=== PATIENT | male | born 1960 | race Caucasian/White ===

== ENCOUNTER 2020-01-24 13:03 | Emergency (ER) | payer MEDICAID, SELFPAY ==
[2020-01-24 14:26] VITALS: BP 140/87; PULSE 110; RESP 24; TEMP 36.6; O2SAT 92; BMI 22.7
--- NOTE | 2020-01-24 14:45 | ECG_ITS ---
Test Reason : DYSPNEA Blood Pressure : / mmHG Vent. Rate : 090 BPM Atrial Rate : 090 BPM P-R Int : 140 ms QRS Dur : 082 ms QT Int : 352 ms P-R-T Axes : 072 -58 053 degrees QTc Int : 430 ms Normal sinus rhythm Left anterior fascicular block Abnormal ECG When compared with ECG of 07-NOV-2019 18:51, Premature ventricular complexes are no longer Present Criteria for Septal infarct are no longer Present Referred By: Clementina Ambriz Electronically Signed By:ADA GRANT MD
--- NOTE | 2020-01-24 14:46 | ED_ITS ---
HPI - SOB/Dyspnea General Chief Complaint: Dyspnea Stated Complaint: COVID SYMPTOMS Time Seen by Provider: 01/24/20 14:37 Source: patient and director business intelligence Mode of arrival: ambulatory Limitations: no limitations and language barrier History of Present Illness HPI Narrative: 59-year-old male with a past medical history of asthma, COPD, alcohol abuse here with shortness of breath and cough for the last 4-5 days. Th e patient is also complaining of some body aches and chills. No fever or chest pain. MD elicited complaint: shortness of breath Pertinent past history: asthma Onset (ago): day(s) Timing: intermittent Severity: moderate Exacerbating factors: exertion Relieving factors: rest Known history of: COPD Associated symptoms: denies other symptoms Treatment prior to arrival: none Related Data Previous Rx's Medication Instructions Recorded albuterol sulfate 2 inh INHALATION Q4-6H PRN #1 ea 01/24/20 levofloxacin 750 mg PO DAILY 4 Days #4 tab 01/24/20 prednisone 40 mg PO DAILY #8 tab 01/24/20 Allergies Allergy/AdvReac Type Severity Reaction Status Date / Time crab Allergy Severe SWELLING/RA Unverified 11/11/19 15:59 Review of Systems Review of Systems: Yes all other systems are reviewed and are negative Constitutional: Constitutional: Reports no additional constitutional complaints, Denies body ache(s), Denies chills, Denies fever(s), Denies headache(s) and Denies weakness Eyes: Eyes: Reports no additional eye complaints and Denies change in vision ENT: Reports system reviewed and no additional complaints, except as documented, Denies dizziness, Denies headache(s), Denies nasal congestion, Denies nasal discharge and Denies neck pain Cardiovascular: Cardiovascular: Reports no additional cardiovascular complaints, Denies chest pain, Denies leg edema and Reports dyspnea Respiratory: Respiratory: Reports no additional respiratory complaints, Reports cough and Reports dyspnea Gastrointestinal: Gastrointestinal: Reports no additional gastrointestinal complaints, Denies abdominal pain, Denies diarrhea, Denies nausea and Denies vomiting Genitourinary: Genitourinary: Denies urinary incontinence Musculoskeletal: Musculoskeletal: Reports no additional musculoskeletal complaints, Denies back pain, Denies arthralgias, Denies joint swelling, Denies neck pain, Denies numbness and Denies tingling Integumentary/Breasts: Skin/Breast: Reports system reviewed and no additional complaints, except as docu and Denies rash Neurologic: Reports system reviewed and no additional complaints, except as documented, Denies Abnormal speech present, Denies dizziness, Denies headache(s), Denies numbness, Denies tingling and Denies weakness PMFSH Past Medical History Source: old records reviewed and nursing notes reviewed Medical History (Updated 01/24/20 @ 17:01 by Clementina Ambriz NP) Alcohol abuse Asthma Social History Social History Alcohol intake: current Alcohol type: hard liquor Smoked in Last 30 Days: No Use of substances other than those prescribed or required for medical reasons: Yes Substance Use Type: Crack/Cocaine Advance Directives: No Advance Directives Information Provided: No Physical Exam Vital Signs: Vital Signs: Last Vital Signs Temp 98 F 01/24/20 14:26 Pulse 103 H 01/24/20 15:43 Resp 22 H 01/24/20 15:43 BP 147/66 H 01/24/20 15:43 Pulse Ox 94 01/24/20 15:43 Body Mass Index 22.7 Const: General: cooperative, healthy appearing, comfortable and no acute distress Orientation/consciousness: patient oriented x3 Limitations: no limitations HENMT: Head: Yes normal to inspection Ears: hearing grossly normal bilaterally General nose exam: Normal external nose present Face and sinus: Yes normal facial exam Mouth: Normal oral and palatal mucosa present Throat: Yes posterior oropharynx normal Eyes: General: appearance normal, both eyes and all related structures Pupils: Equal, round and reactive pupils present Neck: Neck: Yes normal visual inspection Chest: Chest palpation & inspection: normal inspection of the chest Resp: Other: Inspiratory and expiratory wheezing throughout, speaking short sentences. Cardio: Rate: regular rate Rhythm: regular rhythm Peripheral pulses: Peripheral pulses 2+ throughout GI: Inspection: Yes normal to inspection Palpation (GI): Soft to palpation and nontender Auscultation: normal bowel sounds Back/Spine/Pelvis: Thoracic/Lumbar Spine: thoracic and lumbar spine normal to inspection Skin: General skin exam: no rashes or lesions noted Neuro: General: patient oriented x3, no focal motor deficits and normal sensation to monofilament Cranial nerves: Yes Equal, round and reactive pupils present Cognition (Neuro): normal cognition Speech: No Abnormal s peech present Gait exam (Neuro): Normal gait present Motor exam (neuro): 5/5 motor strength present throughout Extrem: General: Yes normal to inspection Course Course Course Narrative: 59-year-old male here with shortness of breath, cough, chills for last 4 days. On exam the patient has inspiratory and exp wheezing throughout. He has some mild tachycardia and tachypnea. He has room air saturation 92%. Will need labs, chest x-ray, EKG. Will give albuterol, Solu-Medrol and magnesium and reassess. 1630- Labs reviewed which show mild leukocytosis with no fever or elevated lactic acid. Patient does complain of productive cough from baseline. Likely asthma flare with bronchitis. At this time infection is suspected. Antibiotics ordered. Repeat nebulizer ordered. Patient did ambulate with an oxygen saturation of 92% however felt some shortness of breath. Will plan for repeat after nebulizer and antibiotics. Patient will likely be able to be discharged h ome. 1700-Sign out to Maricarmen PETROPHYSICIST pending above. MDM - SOB/Dyspnea Medical Records Attestation: I reviewed the patient's medical records. Lab Data Attestation: I reviewed the patient's lab results. Result diagrams: 01/24/20 14:57 01/24/20 14:57 Labs: Lab Results 01/24/20 01/24/20 01/24/20 Range/Units 14:57 14:57 14:57 WBC 15.2 H (4.8-10.8) X10*3/uL RBC 5.19 (4.60-5.80) X10*6/uL Hgb 16.2 (14.0-18.0) g/dl Hct 48.3 (42-52) % MCV 93.1 (80-98) fL MCH 31.2 (27.0-33.0) pg MCHC 33.5 (31.0-36.0) g/dl RDW 12.5 (11.0-16.0) % Plt Count 250 (160-400) X10*3/uL MPV 9.9 (9.4-12.4) fL Immature Gran % (Auto) 0.3 (0.0-0.4) % Neut % (Auto) 85.4 H (45-73) % Lymph % (Auto) 4.9 L (20-40) % [place] % (Auto) 9.0 (2-11) % Eos % (Auto) 0.1 (0-4) % Baso % (Auto) 0.3 (0-2) % Lymph # (Auto) 0.7 L (1.2-4.9) X10*3/uL [place] # (Auto) 1.4 H (0.1-1.2) X10*3/uL Eos # (Auto) 0.0 (0.0-0.4) X10*3/uL Baso # (Auto) 0.0 (0.0-0.2) X10*3/uL Abs Immat Gran (auto) 0.05 H (0.00-0.03) X10*3/uL Absolute Neuts (auto) 12.9 H (2.0-8.3) X10*3/uL Absolute Nucleated RBC 0.000 (0.0-0.012) X10*3/uL Nucleated RBC % (auto) 0.0 (0.0-0.2) /100WBC Sodium 134 L (135-145) mmol/L Potassium 4.3 (3.3-5.1) mmol/l Chloride 96 (96-108) mmol/L Carbon Dioxide 24 (22-29) mmol/L Anion Gap 18 (12-20) BUN 19 H (9-16) mg/dL Creatinine 1.12 (0.5-1.4) mg/dL Estim Creat Clear Calc 65.2 Estimated GFR > 60 Random Glucose 100 (60-115) mg/dL Lactic Acid (0.5-2.0) mmol/L Calcium 8.9 (8.4-10.2) mg/dL Magnesium 2.4 (1.6-2.6) mg/dL Total Bilirubin 1.2 H (0.0-1.0) mg/dL Direct Bilirubin 0.6 H (0.0-0.5) mg/dL AST 27 (5-37) U/L ALT 26 (0-40) U/L Alkaline Phosphatase 80 (39-117) U/L Total Protein 7.8 (6.5-8.0) g/dL Albumin 4.0 (3.5-5.0) g/dL Coronavirus (PCR) NEGATIVE (Negative) Influenza Type A (PCR) NEGATIVE (Negative) Influenza Type B (PCR) NEGATIVE (Negative) RSV RNA Qual (PCR) NEGATIVE (Negative) 01/24/20 Range/Units 14:57 WBC (4.8-10.8) X10*3/uL RBC (4.60-5.80) X10*6/uL Hgb (14.0-18.0) g/dl Hct (42-52) % MCV (80-98) fL MCH (27.0-33.0) pg MCHC (31.0-36.0) g/dl RDW (11.0-16.0) % Plt Count (160-400) X10*3/uL MPV (9.4-12.4) fL Immature Gran % (Auto) (0.0-0.4) % Neut % (Auto) (45-73) % Lymph % (Auto) (20-40) % [place] % (Auto) (2-11) % Eos % (Auto) (0-4) % Baso % (Auto) (0-2) % Lymph # (Auto) (1.2-4.9) X10*3/uL [place] # (Auto) (0.1-1.2) X10*3/uL Eos # (Auto) (0.0-0.4) X10*3/uL Baso # (Auto) (0.0-0.2) X10*3/uL Abs Immat Gran (auto) (0.00-0.03) X10*3/uL Absolute Neuts (auto) (2.0-8.3) X10*3/uL Absolute Nucleated RBC (0.0-0.012) X10*3/uL Nucleated RBC % (auto) (0.0-0.2) /100WBC Sodium (135-145) mmol/L Potassium (3.3-5.1) mmol/l Chloride (96-108) mmol/L Carbon Dioxide (22-29) mmol/L Anion Gap (12-20) BUN (9-16) mg/dL Creatinine (0.5-1.4) mg/dL Estim Creat Clear Calc Estimated GFR Random Glucose (60-115) mg/dL Lactic Acid 1.4 (0.5-2.0) mmol/L Calcium (8.4-10.2) mg/dL Magnesium (1.6-2.6) mg/dL Total Bilirubin (0.0-1.0) mg/dL Direct Bilirubin (0.0-0.5) mg/dL AST (5-37) U/L ALT (0-40) U/L Alkaline Phosphatase (39-117) U/L Total Protein (6.5-8.0) g/dL Albumin (3.5-5.0) g/dL Coronavirus (PCR) (Negative) Influenza Type A (PCR) (Negative) Influenza Type B (PCR) (Negative) RSV RNA Qual (PCR) (Negative) Imaging Data Chest x-ray: Attestation: I personally reviewed and interpreted this imaging study as follows: Radiologist's impression: EXAMINATION: XR CHEST CLINICAL INFORMATION: SOB. COMPARISON: None TECHNIQUE: Frontal view of the chest was obtained. FINDINGS: No significant abnormality is noted involving the heart, lungs, mediastinum, bony thorax or soft tissues. XR/XR chest 1V IMPRESSION: Unremarkable chest exam. Discharge Plan Discharge Clinical Impression: Bronchitis Asthma with exacerbation Qualifiers: Asthma severity: mild Asthma persistence: intermittent Qualified Code(s): J45.21 - Mild intermittent asthma with (acute) exacerbation Patient Disposition: Home, Self-Care Instructions: Asthma (ED), Acute Bronchitis (ED) Additional Instructions: Start your prednisone and antibiotics tomorrow Drink plenty of fluids, rest Prescriptions: New prednisone 20 mg tablet 40 mg PO DAILY Qty: 8 RF: 0 albuterol sulfate 90 mcg/actuation aerosol powdr breath activated 2 inh inhalation Q4-6H PRN (Reason: shortness of breath or wheezing) Qty: 1 RF: 0 levofloxacin 750 mg tablet 750 mg PO DAILY 4 Days Qty: 4 RF: 0 Referrals: Physician,None [Primary Care Provider] - 2 days
--- NOTE | 2020-01-24 14:55 | XR_ITS ---
EXAMINATION: XR CHEST CLINICAL INFORMATION: SOB and cough. COMPARISON: Chest 11/10/2019 TECHNIQUE: Frontal view of the chest was obtained. FINDINGS: The lungs are well-inflated with increased interstitial markings but no focal consolidation or mass. No pleural effusion. Heart size and pulmonary vascularity is normal. No gross bony abnormality. XR/XR chest 1V IMPRESSION: Bilateral increased interstitial markings similar to previous exam. There is no consolidation.
[2020-01-24] MEDS: Albuterol Sulfate 90 MCG 8 GM INHALER 4 PUFF INHALE (14:58)
[2020-01-24 15:08] LABS: Basophils Percent Auto 0.3 % (0-2); Eosinophils Percent Auto 0.1 % (0-4); Hematocrit 48.3 % (42-52); Hemoglobin 16.2 g/dl (14.0-18.0); Imm Gran Abs Auto 0.05 X10*3/uL (0.00-0.03); Imm Gran Pct Auto 0.3 % (0.0-0.4); Lymphocytes Absolute Auto 0.7 X10*3/uL (1.2-4.9); Lymphocytes Percent Auto 4.9 % (20-40); MANUAL DIFF FLAG NO; Mean Corpuscular HGB Conc 33.5 g/dl (31.0-36.0); Mean Corpuscular Hemoglobin 31.2 pg (27.0-33.0); Mean Corpuscular Volume 93.1 fL (80-98); Mean Platelet Volume 9.9 fL (9.4-12.4); Monocytes Absolute Auto 1.4 X10*3/uL (0.1-1.2); Neutrophils Absolute Auto 12.9 X10*3/uL (2.0-8.3); Neutrophils Percent Auto 85.4 % (45-73); Platelet Count 250 X10*3/uL (160-400); Red Blood Count 5.19 X10*6/uL (4.60-5.80); Red Cell Distribution Width 12.5 % (11.0-16.0); White Blood Count 15.2 X10*3/uL (4.8-10.8)
[2020-01-24] MEDS: methylPREDNISolone Sod Succ/PF 125 MG/2 ML VIAL IVPUSH (15:10)
[2020-01-24] MEDS: Magnesium Sulfate/H2O 2 GM/50 ML PIGGYBACK IV (15:11)
[2020-01-24 15:14] VITALS: O2SAT 95
[2020-01-24 15:17] VITALS: PULSE 92; O2SAT 95
[2020-01-24 15:27] LABS: Lactic Acid 1.4 mmol/L (0.5-2.0)
[2020-01-24 15:33] LABS: Alanine Aminotransferase 26 U/L (0-40); Alkaline Phosphatase 80 U/L (39-117); Anion Gap 18 (12-20); Aspartate Amino Transferase 27 U/L (5-37); Bilirubin Direct 0.6 mg/dL (0.0-0.5); Bilirubin Total 1.2 mg/dL (0.0-1.0); Blood Urea Nitrogen 19 mg/dL (9-16); Calcium 8.9 mg/dL (8.4-10.2); Carbon Dioxide 24 mmol/L (22-29); Chloride 96 mmol/L (96-108); Creatinine Clr Calc Pharmacy 65.2; Estimated Glomerular Filt Rate > 60; Glucose Random 100 mg/dL (60-115); Magnesium 2.4 mg/dL (1.6-2.6); Potassium 4.3 mmol/l (3.3-5.1); Sodium 134 mmol/L (135-145); Total Protein 7.8 g/dL (6.5-8.0)
--- NOTE | 2020-01-24 15:42 | PC.NURSE ---
report taken from narciso perry. pt currently in nad at this time. on 2 l nc stating 94%. pt speaking in clear and full sentences. mag iv complete. pending labs.
[2020-01-24 15:43] VITALS: BP 147/66; PULSE 103; RESP 22; O2SAT 94
[2020-01-24 15:51] LABS: Influenza A PCR NEGATIVE (Negative); Influenza B PCR NEGATIVE (Negative); Resp Syncy Virus RNA Qual PCR NEGATIVE (Negative); SARS COV2 PCR INHOUSE NEGATIVE (Negative)
--- NOTE | 2020-01-24 16:11 | PC.NURSE ---
plan for patient per lovely substation manager to ween patient from 2 l nc see how patient does. then to do a walking o2 saturation on patient.
--- NOTE | 2020-01-24 16:21 | PC.NURSE ---
pt ambulated around ed. 90% on RA. lovely tile machine operator aware at bedside with staff coroner/medical examiner.
[2020-01-24] MEDS: Albuterol/Iprat 2.5/0.5MG 3 ML AMPUL.NEB INHALE (16:44)
[2020-01-24] MEDS: levoFLOXacin/D5W 500 MG/100 ML PIGGYBACK 100 MG IV (16:44)
--- NOTE | 2020-01-24 16:45 | PC.NURSE ---
antibiotic stared and breathing treatment initiated. pt remains in nad. 93% on breathing treatment
== END 2020-01-24 18:25 | disposition home or self-care (01) ==
PROVIDERS: Nurse Practitioner Family; Emergency Provider Internal Medicine
DX: J44.1 Chronic obstructive pulmonary disease with (acute) exacerbation (principal); J20.9 Acute bronchitis, unspecified; J44.0 Chronic obstructive pulmonary disease with (acute) lower respiratory infection; J45.20 Mild intermittent asthma, uncomplicated; F14.90 Cocaine use, unspecified, uncomplicated; Z20.828 Contact with and (suspected) exposure to other viral communicable diseases; Z79.899 Other long term (current) drug therapy
CPT/HCPCS: 0241U; 11104; 36415; 71045; 80048; 80076; 83605; 83735; 85025; 87040; 93005; 94640; 96365; 96366; 96367; 96375; 99284; J1956; J2930; J3475

== ENCOUNTER 2020-02-14 10:51 | Emergency (ER) | payer MEDICAID, SELFPAY ==
[2020-02-14 11:46] VITALS: BP 141/81; PULSE 100; RESP 24; TEMP 37; O2SAT 95; BMI 25.0
[2020-02-14 11:52] VITALS: O2SAT 95
--- NOTE | 2020-02-14 11:56 | XR_ITS ---
EXAMINATION: XR CHEST CLINICAL INFORMATION: Cough, fever, shortness of breath COMPARISON: Chest radiographs 01/24/2020, 11/10/2019 TECHNIQUE: Portable upright AP view of the chest was obtained. FINDINGS: There is hyperinflation/COPD similar to prior studies. Subtle accentuated subpleural lines lateral right upper zone and right lateral base are stable from prior exam. There is no interval airspace consolidation or definite groundglass opacity. The vascularity is normal. There is no vascular congestion or effusion. The heart is normal in size. The hilar and mediastinal contours and bony structures are unremarkable. XR/XR chest 1V IMPRESSION: No acute intrathoracic disease.
--- NOTE | 2020-02-14 12:06 | ECG_ITS ---
Test Reason : SOB Blood Pressure : / mmHG Vent. Rate : 080 BPM Atrial Rate : 080 BPM P-R Int : 176 ms QRS Dur : 072 ms QT Int : 362 ms P-R-T Axes : 078 -53 031 degrees QTc Int : 417 ms Normal sinus rhythm Right atrial enlargement Left axis deviation Abnormal ECG When compared with ECG of 24-JAN-2020 16:02, ST more depressed Inferior leads Referred By: Cyndi Youssef Electronically Signed By:ADA GRANT MD
--- NOTE | 2020-02-14 12:10 | ED_ITS ---
HPI - URI/Sore Throat General Chief Complaint: Upper Respiratory Symptoms Stated Complaint: covid symptoms Time Seen by Provider: 02/14/20 11:54 Source: patient Mode of arrival: ambulatory Limitations: no limitations History of Present Illness HPI Narrative: 59 y/o male with history of COPD, asthma, ETOH abuse presenting with 2 days of SOB, wheezing, fever and productive cough with yellow phlegm. He states he has been using his inhaler without improvement. He denies sick contacts. He reports some chest discomfort as well, worse when he is coughing. MD elicited complaint: fever and cough Pertinent past history: COPD and asthma Onset (ago): day(s) (2) Consistency: constant Severity: moderate Description of mucous: yellow Able to tolerate fluids by mouth: Yes Exacerbating factors: exertion and supine positioning Associated symptoms: fever, cough and chest pain Treatments prior to arrival: none Related Data Previous Rx's Medication Instructions Recorded albuterol sulfate 2 inh INHALATION Q4-6H PRN #1 ea 01/24/20 levofloxacin 750 mg PO DAILY 4 Days #4 tab 01/24/20 prednisone 40 mg PO DAILY #8 tab 01/24/20 azithromycin [Zithromax Z-Roderick] See Rx Instructions .ROUTE 02/14/20 .COMPLEX #6 tab doxycycline hyclate 100 mg PO DAILY #10 tab 02/14/20 prednisone 40 mg PO DAILY #10 tab 02/14/20 Allergies Allergy/AdvReac Type Severity Reaction Status Date / Time crab Allergy Severe SWELLING/RA Unverified 11/11/19 15:59 Review of Systems Review of Systems: Constitutional: + Fever, +Chills ENT/Mouth: No sore throat, No Rhinorrhea, No Swallowing Difficulty Eyes: No Eye Pain, No Swelling, No Redness Cardiovascular: + Chest Pain, + SOB, + Orthopnea, No Edema Respiratory: +Cough, + Sputum, + Wheezing, + dyspnea Gastrointestinal: No Nausea, No Vomiting, No Diarrhea, No abdominal Pain, No Hematochezia, No Melena Genitourinary: No Dysuria, No Urinary Frequency, No Hematuria Musculoskeletal: No joint pain, No Myalgias Skin: No Skin Lesions, No rash Neuro: + Weakness, No Numbness, No Dizziness, No Headache Psych: No Anxiety/Panic, No Depression Heme/Lymph: No Bruising, No Lymphadenopathy Endocrine: No Polyuria, No Polydipsia PMFSH Past Medical History Medical History Alcohol abuse Asthma Social History Social History Alcohol intake: never Smoking Status: Light tobacco smoker Use of substances other than those prescribed or required for medical reasons: No Substance Use Type: Crack/Cocaine Advance Directives: No Advance Directives Information Provided: No Physical Exam Vital Signs: Vital Signs: Last Vital Signs Temp 98.6 F 02/14/20 11:46 Pulse 74 02/14/20 13:41 Resp 24 H 02/14/20 11:46 BP 141/81 H 02/14/20 11:46 Pulse Ox 95 02/14/20 11:52 Body Mass Index 25.0 Appearance: Alert. Oriented X3. Mild resp distress, audible wheezing. Eyes: Pupils equal, round and reactive to light. ENT: Pharynx normal. Neck: Normal inspection. Neck supple. CVS: Normal heart rate and rhythm. Pulses normal. Respiratory: Mild respiratory distress with RR low 20s, diffuse wheezing and rhonchi throughout Abdomen: Soft and nontender. +BS x4 Skin: Skin warm and dry. Normal skin color. Normal skin turgor. No rashes. Extremities: No lower extremity edema. Neuro: Oriented X 3. No motor deficit. No sensory deficit. Course Course Course Narrative: 59 y/o male with hx COPD/asthma, etoh abuse presenting with f ever, SOB, cough and wheezing. No improvement with home inhalers. Lung sounds coarse with wheezing. Mild resp distress with RR low 20s, no accessory muscle use. Plan to check resp panel, cultures, CXR. Will give steroids and abx now to cover CAP vs bronchitis. Reevaluation(s) Reevaluation #1: COVID, flu, RSV negative. CXR without infiltrate. Will give nebulizer treatment now that COVID is negative. SpO2 remains 95% on RA. Reevaluation #2: Aeration and wheezing improved after neb. Patient feels significantly improved. His vitals are improved. He is stable for discharge with treatment for bronchitis. Will refer to Pulmonology. MDM - URI/Sore Throat Lab Data Result diagrams: 02/14/20 12:27 02/14/20 12:27 Labs: Lab Results 02/14/20 02/14/20 02/14/20 Range/Units 12:27 12:27 12:27 WBC 5.6 (4.8-10.8) X10*3/uL RBC 4.90 (4.60-5.80) X10*6/uL Hgb 15.1 (14.0-18.0) g/dl Hct 45.7 (42-52) % MCV 93.3 (80-98) fL MCH 30.8 (27.0-33.0) pg MCHC 33.0 (31.0-36.0) g/dl RDW 13.5 (11.0-16.0) % Plt Count 210 (160-400) X10*3/uL MPV 9.6 (9.4-12.4) fL Immature Gran % (Auto) 0.2 (0.0-0.4) % Neut % (Auto) 58.5 (45-73) % Lymph % (Auto) 22.7 (20-40) % [place] % (Auto) 11.9 H (2-11) % Eos % (Auto) 6.5 H (0-4) % Baso % (Auto) 0.2 (0-2) % Lymph # (Auto) 1.3 (1.2-4.9) X10*3/uL [place] # (Auto) 0.7 (0.1-1.2) X10*3/uL Eos # (Auto) 0.4 (0.0-0.4) X10*3/uL Baso # (Auto) 0.0 (0.0-0.2) X10*3/uL Abs Immat Gran (auto) 0.01 (0.00-0.03) X10*3/uL Absolute Neuts (auto) 3.3 (2.0-8.3) X10*3/uL Absolute Nucleated RBC 0.000 (0.0-0.012) X10*3/uL Nucleated RBC % (auto) 0.0 (0.0-0.2) /100WBC Hold Blue Top SEE NOTE Sodium (135-145) mmol/L Potassium (3.3-5.1) mmol/l Chloride (96-108) mmol/L Carbon Dioxide (22-29) mmol/L Anion Gap (12-20) BUN (9-16) mg/dL Creatinine (0.5-1.4) mg/dL Estim Creat Clear Calc Estimated GFR Random Glucose (60-115) mg/dL Lactic Acid (0.5-2.0) mmol/L Calcium (8.4-10.2) mg/dL Magnesium (1.6-2.6) mg/dL Troponin I High Sens (<3.5-35.0) ng/L B-Natriuretic Peptide (<100) pg/mL Procalcitonin ng/mL Coronavirus (PCR) NEGATIVE (Negative) Influenza Type A (PCR) NEGATIVE (Negative) Influenza Type B (PCR) NEGATIVE (Negative) RSV RNA Qual (PCR) NEGATIVE (Negative) 02/14/20 02/14/20 02/14/20 Range/Units 12:27 12:27 12:27 WBC (4.8-10.8) X10*3/uL RBC (4.60-5.80) X10*6/uL Hgb (14.0-18.0) g/dl Hct (42-52) % MCV (80-98) fL MCH (27.0-33.0) pg MCHC (31.0-36.0) g/dl RDW (11.0-16.0) % Plt Count (160-400) X10*3/uL MPV (9.4-12.4) fL Immature Gran % (Auto) (0.0-0.4) % Neut % (Auto) (45-73) % Lymph % (Auto) (20-40) % [place] % (Auto) (2-11) % Eos % (Auto) (0-4) % Baso % (Auto) (0-2) % Lymph # (Auto) (1.2-4.9) X10*3/uL [place] # (Auto) (0.1-1.2) X10*3/uL Eos # (Auto) (0.0-0.4) X10*3/uL Baso # (Auto) (0.0-0.2) X10*3/uL Abs Immat Gran (auto) (0.00-0.03) X10*3/uL Absolute Neuts (auto) (2.0-8.3) X10*3/uL Absolute Nucleated RBC (0.0-0.012) X10*3/uL Nucleated RBC % (auto) (0.0-0.2) /100WBC Hold Blue Top Sodium 140 (135-145) mmol/L Potassium 4.0 (3.3-5.1) mmol/l Chloride 102 (96-108) mmol/L Carbon Dioxide 29 (22-29) mmol/L Anion Gap 13 (12-20) BUN 11 (9-16) mg/dL Creatinine 1.13 (0.5-1.4) mg/dL Estim Creat Clear Calc 60.4 Estimated GFR > 60 Random Glucose 86 (60-115) mg/dL Lactic Acid 0.9 (0.5-2.0) mmol/L Calcium 8.7 (8.4-10.2) mg/dL Magnesium 2.2 (1.6-2.6) mg/dL Troponin I High Sens < 3.5 (<3.5-35.0) ng/L B-Natriuretic Peptide (<100) pg/mL Procalcitonin ng/mL Coronavirus (PCR) (Negative) Influenza Type A (PCR) (Negative) Influenza Type B (PCR) (Negative) RSV RNA Qual (PCR) (Negative) 02/14/20 02/14/20 Range/Units 12:27 12:27 WBC (4.8-10.8) X10*3/uL RBC (4.60-5.80) X10*6/uL Hgb (14.0-18.0) g/dl Hct (42-52) % MCV (80-98) fL MCH (27.0-33.0) pg MCHC (31.0-36.0) g/dl RDW (11.0-16.0) % Plt Count (160-400) X10*3/uL MPV (9.4-12.4) fL Immature Gran % (Auto) (0.0-0.4) % Neut % (Auto) (45-73) % Lymph % (Auto) (20-40) % [place] % (Auto) (2-11) % Eos % (Auto) (0-4) % Baso % (Auto) (0-2) % Lymph # (Auto) (1.2-4.9) X10*3/uL [place] # (Auto) (0.1-1.2) X10*3/uL Eos # (Auto) (0.0-0.4) X10*3/uL Baso # (Auto) (0.0-0.2) X10*3/uL Abs Immat Gran (auto) (0.00-0.03) X10*3/uL Absolute Neuts (auto) (2.0-8.3) X10*3/uL Absolute Nucleated RBC (0.0-0.012) X10*3/uL Nucleated RBC % (auto) (0.0-0.2) /100WBC Hold Blue Top Sodium (135-145) mmol/L Potassium (3.3-5.1) mmol/l Chloride (96-108) mmol/L Carbon Dioxide (22-29) mmol/L Anion Gap (12-20) BUN (9-16) mg/dL Creatinine (0.5-1.4) mg/dL Estim Creat Clear Calc Estimated GFR Random Glucose (60-115) mg/dL Lactic Acid (0.5-2.0) mmol/L Calcium (8.4-10.2) mg/dL Magnesium (1.6-2.6) mg/dL Troponin I High Sens (<3.5-35.0) ng/L B-Natriuretic Peptide 22 (<100) pg/mL Procalcitonin 0.05 ng/mL Coronavirus (PCR) (Negative) Influenza Type A (PCR) (Negative) Influenza Type B (PCR) (Negative) RSV RNA Qual (PCR) (Negative) ECG Data Attestation: I personally reviewed and interpreted this ECG as follows: ECG interpretation date: 02/14/20 ECG interpretation time: 12:35 Interpretation: Normal sinus rhythm, HR 80, normal GA interval, normal QTc Discharge Plan Discharge Clinical Impression: Bronchitis Patient Disposition: Home, Self-Care Instructions: Acute Bronchitis (ED) Additional Instructions: You were tested for COVID-19, Influenza and RSV today. All were negative. Your chest x-ray did not show any evidence of pneumonia. You are being treated for bronchitis. Take the medications as prescribed. If you develop difficulty breathing, worsening shortness of breath or chest pain come back to the ER for further evaluation. Prescriptions: New azithromycin [Zithromax Z-Roderick] 250 mg tablet See Rx Instructions .ROUTE .COMPLEX Qty: 6 RF: 0 prednisone 20 mg tablet 40 mg PO DAILY Qty: 10 RF: 0 doxycycline hyclate 100 mg tablet 100 mg PO DAILY Qty: 10 RF: 0 No Action prednisone 20 mg tablet 40 mg PO DAILY Qty: 8 RF: 0 albuterol sulfate 90 mcg/actuation aerosol powdr breath activated 2 inh inhalation Q4-6H PRN (Reason: shortness of breath or wheezing) Qty: 1 RF: 0 levofloxacin 750 mg tablet 750 mg PO DAILY 4 Days Qty: 4 RF: 0 Referrals: Erick Aviles MD [Physician] - 2 days
[2020-02-14 12:34] LABS: MANUAL DIFF FLAG NO
[2020-02-14 12:36] LABS: Basophils Percent Auto 0.2 % (0-2); Eosinophils Absolute Auto 0.4 X10*3/uL (0.0-0.4); Eosinophils Percent Auto 6.5 % (0-4); Hematocrit 45.7 % (42-52); Hemoglobin 15.1 g/dl (14.0-18.0); Imm Gran Abs Auto 0.01 X10*3/uL (0.00-0.03); Imm Gran Pct Auto 0.2 % (0.0-0.4); Lymphocytes Absolute Auto 1.3 X10*3/uL (1.2-4.9); Lymphocytes Percent Auto 22.7 % (20-40); Mean Corpuscular Hemoglobin 30.8 pg (27.0-33.0); Mean Corpuscular Volume 93.3 fL (80-98); Mean Platelet Volume 9.6 fL (9.4-12.4); Monocytes Absolute Auto 0.7 X10*3/uL (0.1-1.2); Monocytes Percent Auto 11.9 % (2-11); Neutrophils Absolute Auto 3.3 X10*3/uL (2.0-8.3); Neutrophils Percent Auto 58.5 % (45-73); Platelet Count 210 X10*3/uL (160-400); Red Cell Distribution Width 13.5 % (11.0-16.0); White Blood Count 5.6 X10*3/uL (4.8-10.8)
[2020-02-14] MEDS: cefTRIAXone sodium 1 GM in 0.9 % Sodium Chloride 50 ML IV (12:49)
[2020-02-14] MEDS: methylPREDNISolone Sod Succ/PF 125 MG/2 ML VIAL 80 MG IVPUSH (12:49)
[2020-02-14] MEDS: 0.9 % Sodium Chloride 1,000 ML 999 ML IVCONT (12:50)
[2020-02-14 13:00] LABS: Lactic Acid 0.9 mmol/L (0.5-2.0)
[2020-02-14 13:02] LABS: Anion Gap 13 (12-20); Blood Urea Nitrogen 11 mg/dL (9-16); Calcium 8.7 mg/dL (8.4-10.2); Carbon Dioxide 29 mmol/L (22-29); Chloride 102 mmol/L (96-108); Creatinine Clr Calc Pharmacy 60.4; Estimated Glomerular Filt Rate > 60; Glucose Random 86 mg/dL (60-115); Magnesium 2.2 mg/dL (1.6-2.6); Sodium 140 mmol/L (135-145)
[2020-02-14 13:10] LABS: B Type Natriuretic Peptide 22 pg/mL (<100)
[2020-02-14 13:11] LABS: Troponin-I High Sensitivity < 3.5 ng/L (<3.5-35.0)
[2020-02-14 13:20] LABS: Influenza A PCR NEGATIVE (Negative); Influenza B PCR NEGATIVE (Negative); Resp Syncy Virus RNA Qual PCR NEGATIVE (Negative); SARS COV2 PCR INHOUSE NEGATIVE (Negative)
[2020-02-14] MEDS: Albuterol/Iprat 2.5/0.5MG 3 ML AMPUL.NEB INHALE (13:36)
[2020-02-14 13:41] VITALS: PULSE 74; O2SAT 96
[2020-02-14 13:54] LABS: Procalcitonin 0.05 ng/mL
[2020-02-14 14:18] VITALS: BP 168/86; PULSE 84; RESP 18; TEMP 36.6; O2SAT 96
== END 2020-02-14 14:28 | disposition home or self-care (01) ==
PROVIDERS: Physician Assistant; Emergency Provider Emergency Medicine
DX: J20.9 Acute bronchitis, unspecified (principal); Z20.828 Contact with and (suspected) exposure to other viral communicable diseases; J44.9 Chronic obstructive pulmonary disease, unspecified; F10.10 Alcohol abuse, uncomplicated; F17.210 Nicotine dependence, cigarettes, uncomplicated; Z79.899 Other long term (current) drug therapy
CPT/HCPCS: 0241U; 36415; 71045; 80048; 83605; 83735; 83880; 84145; 84484; 85025; 87040; 93005; 94640; 96365; 96366; 96367; 96375; 99284; 99285; J0696; J2930

== ENCOUNTER 2020-08-11 10:25 | Emergency (ER) | payer MEDICAID, SELFPAY ==
--- NOTE | ~2020-08-11 | XR_ITS ---
EXAMINATION: XR CHEST CLINICAL INFORMATION: Coughing COMPARISON: Chest 02/14/2020 TECHNIQUE: Frontal view of the chest was obtained. FINDINGS: Both lungs are hyperinflated with patchy opacity in the right upper lobe likely atelectasis and/or scarring. Rest of the lungs are clear. Heart size and pulmonary vascularity is normal. No gross bony abnormality seen. XR/XR chest 1V IMPRESSION: Hyperinflated lungs with patchy opacity right upper lobe likely atelectasis or scarring.
[2020-08-11 10:30] VITALS: BP 180/103; PULSE 98; RESP 19; TEMP 36.8; O2SAT 94; BMI 23.3
[2020-08-11 10:51] VITALS: BP 149/85; PULSE 78; RESP 18; O2SAT 93
--- NOTE | 2020-08-11 11:03 | ED.ASTHMA ---
HPI - Asthma General Chief Complaint: Asthma Stated Complaint: asthma Time Seen by Provider: 08/11/20 10:49 Source: patient Mode of arrival: ambulatory Limitations: no limitations History of Present Illness HPI Narrative: Patient presents to the ED for asthma exacerbation. Patient presents to ED for coughing, shortness of breath, and wheezing. Patient states no relief with the albuterol pump. Patient states not vaccinated against the COVID virus. Patient denies any leg swelling, chest pain, recent long travel, recent surgery, recent trauma, any estrogen hormone use, or any history of blood clot. Related Data Previous Rx's Medication Instructions Recorded albuterol sulfate 2 inh INHALATION Q4-6H PRN #1 ea 01/24/20 levofloxacin 750 mg PO DAILY 4 Days #4 tab 01/24/20 prednisone 40 mg PO DAILY #8 tab 01/24/20 azithromycin [Zithromax Z-Roderick] See Rx Instructions .ROUTE 02/14/20 .COMPLEX #6 tab doxycycline hyclate 100 mg PO DAILY #10 tab 02/14/20 prednisone 40 mg PO DAILY #10 tab 02/14/20 albuterol sulfate 2 puff INHALATION QID PRN #8.5 g 08/11/20 azithromycin See Rx Instructions .ROUTE 08/11/20 .COMPLEX #6 tab benzonatate [Tessalon Perles] 100 mg PO TID PRN #15 cap 08/11/20 prednisone 40 mg PO DAILY #10 tab 08/11/20 Allergies Allergy/AdvReac Type Severity Reaction Status Date / Time crab Allergy Severe SWELLING/RA Verified 08/11/20 10:33 Review of Systems Review of Systems: Yes all other systems are reviewed and are negative Constitutional: Constitutional: Reports as per HPI and Reports no additional constitutional complaints Eyes: Eyes: Reports as per HPI and Reports no additional eye complaints ENT: Reports system reviewed and no additional complaints, except as documented and Reports as per HPI Cardiovascular: Cardiovascular: Reports as per HPI, Reports no additional cardiovascular complaints, Denies chest pain and Reports dyspnea Respiratory: Respiratory: Reports as per HPI, Reports no additional respiratory complaints, Reports cough, Reports dyspnea and Reports wheezing Gastrointestinal: Gastrointestinal: Reports as per HPI and Reports no additional gastrointestinal complaints Genitourinary: Genitourinary: Reports no additional male genitourinary complaints and Reports as per HPI Musculoskeletal: Musculoskeletal: Reports no additional musculoskeletal complaints and Reports as per HPI Neurologic: Reports system reviewed and no additional complaints, except as documented and Reports as per HPI Psychiatric: Psychiatric: Reports no additional psychiatric complaints and Reports as per HPI Allergic/Immunologic: Allergic/Immunologic: Reports wheezing [facility] Past Medical History Medical History Alcohol abuse Asthma Social History Social History Alcohol intake: never Substance Use Type: Crack/Cocaine Advance Directives: Yes Advance Directives on File: Yes Advance Directives Date on File: 01/24/20 Physical Exam Vital Signs: Vital Signs: Last Vital Signs Temp 98.3 F 08/11/20 10:30 Pulse 78 08/11/20 12:48 Resp 17 08/11/20 12:48 BP 149/85 H 08/11/20 10:51 Pulse Ox 95 08/11/20 12:48 Body Mass Index 23.3 Const: General: cooperative, healthy appearing, comfortable, no acute distress, well developed, alert and awake Orientation/consciousness: patient oriented x3 HENMT: Head: Yes normal to inspection, Yes No palpable skull fracture present, Yes normocephalic and Yes atraumatic Eyes: General: appearance normal, both eyes and all related structures Neck: Neck: Yes normal visual inspection, Yes full ROM, Yes no lymphadenopathy, Yes no meningeal signs, Yes trachea midline and Yes supple Chest: Chest palpation & inspection: normal inspection of the chest and normal palpation of entire chest wall Resp: Effort & Inspection: normal respiratory effort and able to speak in complete sentences Auscultation: wheezes (Diffuse) expiratory wheezes Cardio: Jugular venous distension: no JVD Heart sounds: S1 normal heart sound present and S2 normal heart sound present GI: Inspection: Yes normal to inspection and No abdominal wall ecchymosis Palpation (GI): Soft to palpation, not firm, nontender, no guarding and not rigid : General: No CVA tenderness Back/Spine/Pelvis: Back: no CVA tenderness, No CVA tenderness and No back tenderness Skin: General skin exam: no rashes or lesions noted and elasticity normal Neuro: General: patient oriented x3, no meningeal signs and CN's II-XI intact bilaterally Cranial nerves: Yes CN's II-XII intact bilaterally Extrem: Other: Lower extremities negative for swelling, pitting edema, or calf tenderness General: Yes normal to inspection and Yes full ROM Psych: Appearance: grossly normal, well kempt and not disheveled Course Course Course Narrative: Lungs diffuse wheezing. Will give patient asthma IV meds and albuterol/advair dual neb. Covid swab will be ordered. Reevaluation(s) Reevaluation #1: EKG negative for STEMI. EKG negative for any new changes. Patient's troponin negative. COVID swab came back negative. Wheezing improved after receiving meds. O2 saturation on room air 96% x-ray shows opacity but does not call pneumonia but will discharge patient with azithromycin. Patient has albuterol inhaler. Will be discharged with prednisone Time: 14:48 MDM - Asthma MDM Narrative Medical decision making narrative: Asthma exacerbation Lab Data Result diagrams: 08/11/20 11:03 08/11/20 13:55 Labs: Lab Results 08/11/20 08/11/20 08/11/20 Range/Units 11:03 11:03 11:03 WBC 4.6 L (4.8-10.8) X10*3/uL RBC 4.91 (4.60-5.80) X10*6/uL Hgb 15.7 (14.0-18.0) g/dl Hct 46.8 (42-52) % MCV 95.3 (80-98) fL MCH 32.0 (27.0-33.0) pg MCHC 33.5 (31.0-36.0) g/dl RDW 13.2 (11.0-16.0) % Plt Count 209 (160-400) X10*3/uL MPV 9.5 (9.4-12.4) fL Immature Gran % (Auto) 0.2 (0.0-0.4) % Neut % (Auto) 52.9 (45-73) % Lymph % (Auto) 23.9 (20-40) % [place] % (Auto) 12.7 H (2-11) % Eos % (Auto) 9.9 H (0-4) % Baso % (Auto) 0.4 (0-2) % Lymph # (Auto) 1.1 L (1.2-4.9) X10*3/uL [place] # (Auto) 0.6 (0.1-1.2) X10*3/uL Eos # (Auto) 0.5 H (0.0-0.4) X10*3/uL Baso # (Auto) 0.0 (0.0-0.2) X10*3/uL Abs Immat Gran (auto) 0.01 (0.00-0.03) X10*3/uL Absolute Neuts (auto) 2.5 (2.0-8.3) X10*3/uL Absolute Nucleated RBC 0.000 (0.0-0.012) X10*3/uL Nucleated RBC % (auto) 0.0 (0.0-0.2) /100WBC PT 11.8 (10.8-13.0) SEC INR 1.0 (0.9-1.1) APTT 35.1 (24.1-38.0) SEC Sodium (135-145) mmol/L Potassium (3.3-5.1) mmol/L Chloride (96-108) mmol/L Carbon Dioxide (22-29) mmol/L Anion Gap (12-20) BUN (9-16) mg/dL Creatinine (0.5-1.4) mg/dL Estim Creat Clear Calc Estimated GFR Random Glucose (60-115) mg/dL Calcium (8.4-10.2) mg/dL Total Bilirubin (0.0-1.0) mg/dL AST (5-37) U/L ALT (0-40) U/L Alkaline Phosphatase (39-117) U/L Troponin I High Sens 4.0 (<3.5-35.0) ng/L B-Natriuretic Peptide 31 (<100) pg/mL Total Protein (6.5-8.0) g/dL Albumin (3.5-5.0) g/dL Coronavirus (PCR) (Negative) Influenza Type A (PCR) (Negative) Influenza Type B (PCR) (Negative) RSV RNA Qual (PCR) (Negative) 08/11/20 08/11/20 Range/Units 11:03 13:55 WBC (4.8-10.8) X10*3/uL RBC (4.60-5.80) X10*6/uL Hgb (14.0-18.0) g/dl Hct (42-52) % MCV (80-98) fL MCH (27.0-33.0) pg MCHC (31.0-36.0) g/dl RDW (11.0-16.0) % Plt Count (160-400) X10*3/uL MPV (9.4-12.4) fL Immature Gran % (Auto) (0.0-0.4) % Neut % (Auto) (45-73) % Lymph % (Auto) (20-40) % [place] % (Auto) (2-11) % Eos % (Auto) (0-4) % Baso % (Auto) (0-2) % Lymph # (Auto) (1.2-4.9) X10*3/uL [place] # (Auto) (0.1-1.2) X10*3/uL Eos # (Auto) (0.0-0.4) X10*3/uL Baso # (Auto) (0.0-0.2) X10*3/uL Abs Immat Gran (auto) (0.00-0.03) X10*3/uL Absolute Neuts (auto) (2.0-8.3) X10*3/uL Absolute Nucleated RBC (0.0-0.012) X10*3/uL Nucleated RBC % (auto) (0.0-0.2) /100WBC PT (10.8-13.0) SEC INR (0.9-1.1) APTT (24.1-38.0) SEC Sodium 140 (135-145) mmol/L Potassium 4.2 (3.3-5.1) mmol/L Chloride 103 (96-108) mmol/L Carbon Dioxide 28 (22-29) mmol/L Anion Gap 13 (12-20) BUN 13 (9-16) mg/dL Creatinine 1.02 (0.5-1.4) mg/dL Estim Creat Clear Calc 66.9 Estimated GFR > 60 Random Glucose 134 H D (60-115) mg/dL Calcium 9.2 (8.4-10.2) mg/dL Total Bilirubin 0.7 (0.0-1.0) mg/dL AST 44 H D (5-37) U/L ALT 37 (0-40) U/L Alkaline Phosphatase 54 D (39-117) U/L Troponin I High Sens (<3.5-35.0) ng/L B-Natriuretic Peptide (<100) pg/mL Total Protein 7.4 (6.5-8.0) g/dL Albumin 4.3 (3.5-5.0) g/dL Coronavirus (PCR) NEGATIVE (Negative) Influenza Type A (PCR) NEGATIVE (Negative) Influenza Type B (PCR) NEGATIVE (Negative) RSV RNA Qual (PCR) NEGATIVE (Negative) ECG Data Interpretation: Normal sinus rhythm. Left anterior fascicular block is old. Ventricular rate 76. Pr interval 154. QRS 100. QTC 474. Negative STEMI Discharge Plan Discharge Clinical Impression: Asthma with acute exacerbation Patient Disposition: Home, Self-Care Instructions: Asthma (ED) Additional Instructions: Return to the ED immediately for any chest pain, shortness of breath, swelling of lower extremities, coughing up blood, fever, chills, calf pain, dizziness, passing out, or any other concerning symptoms. Please follow-up with PCP Prescriptions: New albuterol sulfate 90 mcg/actuation HFA aerosol inhaler 2 puff inhalation QID PRN (Reason: asthma) Qty: 8.5 RF: 0 prednisone 20 mg tablet 40 mg PO DAILY Qty: 10 RF: 0 azithromycin 250 mg tablet See Rx Instructions .ROUTE .COMPLEX Qty: 6 RF: 0 benzonatate [Tessalon Perles] 100 mg capsule 100 mg PO TID PRN (Reason: pain) Qty: 15 RF: 0 No Action prednisone 20 mg tablet 40 mg PO DAILY Qty: 8 RF: 0 albuterol sulfate 90 mcg/actuation aerosol powdr breath activated 2 inh inhalation Q4-6H PRN (Reason: shortness of breath or wheezing) Qty: 1 RF: 0 levofloxacin 750 mg tablet 750 mg PO DAILY 4 Days Qty: 4 RF: 0 azithromycin [Zithromax Z-Rdoerick] 250 mg tablet See Rx Instructions .ROUTE .COMPLEX Qty: 6 RF: 0 prednisone 20 mg tablet 40 mg PO DAILY Qty: 10 RF: 0 doxycycline hyclate 100 mg tablet 100 mg PO DAILY Qty: 10 RF: 0 Interventions: ED Discharge Assessment Last Done: 08/11/20 15:08 Discharge Date/Time: 08/11/20 15:08 Print Language: Luxembourgish
[2020-08-11] MEDS: methylPREDNISolone Sod Succ 125 MG/2 ML VIAL IVPUSH (11:06)
[2020-08-11 11:08] LABS: MANUAL DIFF FLAG NO
[2020-08-11 11:09] LABS: Basophils Percent Auto 0.4 % (0-2); Eosinophils Absolute Auto 0.5 X10*3/uL (0.0-0.4); Eosinophils Percent Auto 9.9 % (0-4); Hematocrit 46.8 % (42-52); Hemoglobin 15.7 g/dl (14.0-18.0); Imm Gran Abs Auto 0.01 X10*3/uL (0.00-0.03); Imm Gran Pct Auto 0.2 % (0.0-0.4); Lymphocytes Absolute Auto 1.1 X10*3/uL (1.2-4.9); Lymphocytes Percent Auto 23.9 % (20-40); Mean Corpuscular HGB Conc 33.5 g/dl (31.0-36.0); Mean Corpuscular Volume 95.3 fL (80-98); Mean Platelet Volume 9.5 fL (9.4-12.4); Monocytes Absolute Auto 0.6 X10*3/uL (0.1-1.2); Monocytes Percent Auto 12.7 % (2-11); Neutrophils Absolute Auto 2.5 X10*3/uL (2.0-8.3); Neutrophils Percent Auto 52.9 % (45-73); Platelet Count 209 X10*3/uL (160-400); Red Blood Count 4.91 X10*6/uL (4.60-5.80); Red Cell Distribution Width 13.2 % (11.0-16.0); White Blood Count 4.6 X10*3/uL (4.8-10.8)
[2020-08-11 11:22] LABS: Prothrombin Time 11.8 SEC (10.8-13.0)
[2020-08-11 11:24] LABS: Partial Thromboplastin Time 35.1 SEC (24.1-38.0)
[2020-08-11] MEDS: Magnesium Sulfate/H2O 2 GM/50 ML PIGGYBACK IV (11:32)
[2020-08-11 11:38] LABS: B Type Natriuretic Peptide 31 pg/mL (<100)
[2020-08-11] MEDS: Albuterol/Iprat 2.5/0.5MG 3 ML AMPUL.NEB INHALE (12:16)
[2020-08-11 12:19] VITALS: PULSE 77; O2SAT 94
[2020-08-11 12:21] LABS: Influenza A PCR NEGATIVE (Negative); Influenza B PCR NEGATIVE (Negative); Resp Syncy Virus RNA Qual PCR NEGATIVE (Negative); SARS COV2 PCR INHOUSE NEGATIVE (Negative)
[2020-08-11 12:48] VITALS: PULSE 78; RESP 17; O2SAT 95
--- NOTE | 2020-08-11 13:51 | ECG_ITS ---
Test Reason : SOB Blood Pressure : / mmHG Vent. Rate : 076 BPM Atrial Rate : 076 BPM P-R Int : 154 ms QRS Dur : 100 ms QT Int : 422 ms P-R-T Axes : 079 -59 009 degrees QTc Int : 474 ms Normal sinus rhythm Right atrial enlargement Left anterior fascicular block Anteroseptal infarct , age undetermined Abnormal ECG When compared with ECG of 14-FEB-2020 12:26, No significant changes seen Referred By: Christo Parks Electronically Signed By:KRISTOPHER MINA
[2020-08-11 14:29] LABS: Alanine Aminotransferase 37 U/L (0-40); Albumin Level 4.3 g/dL (3.5-5.0); Alkaline Phosphatase 54 U/L (39-117); Anion Gap 13 (12-20); Aspartate Amino Transferase 44 U/L (5-37); Bilirubin Total 0.7 mg/dL (0.0-1.0); Blood Urea Nitrogen 13 mg/dL (9-16); Calcium 9.2 mg/dL (8.4-10.2); Carbon Dioxide 28 mmol/L (22-29); Chloride 103 mmol/L (96-108); Creatinine Clr Calc Pharmacy 66.9; Estimated Glomerular Filt Rate > 60; Glucose Random 134 mg/dL (60-115); Potassium 4.2 mmol/L (3.3-5.1); Sodium 140 mmol/L (135-145); Total Protein 7.4 g/dL (6.5-8.0)
== END 2020-08-11 15:08 | disposition home or self-care (01) ==
PROVIDERS: Physician Assistant; Emergency Provider Emergency Medicine
DX: J45.901 Unspecified asthma with (acute) exacerbation (principal); R06.02 Shortness of breath; Z79.899 Other long term (current) drug therapy; Z20.822 Contact with and (suspected) exposure to COVID-19
CPT/HCPCS: 0241U; 36415; 71045; 80053; 83880; 84484; 85025; 85610; 85730; 93005; 94640; 96365; 96366; 96375; 99284; J2930; J3475

== ENCOUNTER 2020-08-19 03:54 | Inpatient (IN) | payer MEDICAID, SELFPAY ==
[2020-08-19] VITALS (12 sets, daily range): BP systolic 119–192; BP diastolic 62–99; PULSE 75–98; RESP 16–28; TEMP 36.4–36.6; O2SAT 90–99; BMI 21.7
--- NOTE | ~2020-08-19 | XR_ITS ---
EXAMINATION: XR CHEST CLINICAL INFORMATION: Shortness of breath. COMPARISON: 08/11/2020 TECHNIQUE: Frontal view of the chest was obtained. FINDINGS: Right hand overlies the superior half of the right hemithorax, limiting assessment of this region. Lungs are hyperexpanded. No focal airspace consolidation is identified. No pneumothorax or pleural effusion. Sensitivity for abnormalities in the right upper lung region is limited. Cardiac and mediastinal contours are normal. Mild degenerative spondylosis in the thoracic spine. XR/XR chest 1V IMPRESSION: Hyperexpanded lungs. No acute findings, though assessment of the right upper lobe is limited by the overlying right hand.
[2020-08-19] MEDS: Magnesium Sulfate/H2O 2 GM/50 ML PIGGYBACK IV (04:09)
[2020-08-19] MEDS: Albuterol Sulfate (0.083%) 2.5 MG/3 ML VIAL.NEB 10 MG INHALE ×2 (04:30→05:39)
[2020-08-19 05:11] LABS: MANUAL DIFF FLAG NO
--- NOTE | 2020-08-19 05:11 | ED.ASTHMA ---
HPI - Asthma General Chief Complaint: Asthma Stated Complaint: asthma Time Seen by Provider: 08/19/20 03:56 Source: patient Mode of arrival: ambulatory Limitations: no limitations History of Present Illness HPI Narrative: Patient comes emergency room complaining of an asthma exacerbation. It has been going on for about 2 days. Patient use his medications at home with no relief. EMS gave the patient 125 mg of albuterol and a DuoNeb treatment Related Data Allergies Allergy/AdvReac Type Severity Reaction Status Date / Time No Known Allergies Allergy Verified 08/19/20 03:56 Review of Systems Review of Systems: Constitutional : No Weight loss, No Fever, No Chills, No Night Sweats, No Fatigue, No Malaise ENT/Mouth : No Hearing loss, No Ear Pain, No Nasal Congestion, No Sinus Pain, No Hoarseness, No sore throat, No Rhinorrhea, No Swallowing Difficulty Eyes: No Eye Pain, No Swelling, No Redness, No Foreign Body, No Discharge, No Vision Changes Cardiovascular : No Chest Pain, no orthopnea, no edema Respiratory : No Cough, No Sputum, complaining of wheezing and dyspnea, No Smoke Exposure, Gastrointestinal : No Nausea, No Vomiting, No Diarrhea, No Constipation, No abdominal Pain, No Hematochezia, No Melena Genitourinary : no irregular bleeding, No Dysuria, No Urinary Frequency, No Hematuria, No Urinary Incontinence, No Urgency, No Flank Pain, No Urinary Flow Changes, No Hesitancy Musculoskeletal : No joint pain, No Myalgias, No Joint Swelling Skin : No Skin Lesions, No rash Neuro : No Weakness, No Numbness, No Paresthesias, No Loss of Consciousness, No Dizziness, No Headache Psych : No Anxiety/Panic, No Depression, No SI/HI/AH/VH, No Social Issues, Heme/Lymph: No Bruising, No Bleeding,No Lymphadenopathy Endocrine : No Polyuria, No Polydipsia, No Temperature Intolerance [facility] Past Medical History Medical History Asthma Social History Social History Alcohol intake: current Alcohol intake frequency: 3 or more drinks per day Alcohol type: hard liquor Smoked in Last 30 Days: No Substance Use Type: Crack/Cocaine Substance Use Frequency: Occasionally Last Used Substance: Days (ago) Any prior treatment program specific to substance use: No Advance Directives: No Advance Directives Information Provided: No Physical Exam Vital Signs: Vital Signs: Last Vital Signs Pulse 91 08/19/20 05:42 Resp 18 08/19/20 05:42 BP 119/74 08/19/20 05:42 Pulse Ox 94 08/19/20 05:42 Body Mass Index 21.7 Appearance: Alert. Oriented X3. No acute distress. Eyes: Pupils equal, round and reactive to light. ENT: Pharynx normal. Neck: Normal inspection. Neck supple. No lymph nodes noted. No crepitus CVS: Normal heart rate and rhythm. Pulses normal. Normal S1 and S2 Respiratory: [id number] respiratory distress, diffuse wheezing, decreased air movement Abdomen: Soft and nontender. No rigidity. No distention. good BS x4 Skin: Skin warm and dry. Normal skin color. Normal skin turgor. Extremities: No lower extremity edema. No lower extremity edema. No Lacerations. No Rash Neuro: Oriented X 3. No motor deficit. No sensory deficit. Moving all extermities. No slurred speech. Course Course Course Narrative: On repeat examination, patient is saturating at 96%, however he still has diffuse wheezing, and patient still feels short of breath. A 2nd breathing treatment hour long is being given now Oxygen saturation dropped to 86% on room air after the 2nd treatment of our long nebulization. I discussed the patient with Dr. Guevara, patient being admitted for asthma exacerbation MDM - Asthma MDM Narrative Medical decision making narrative: Patient continues being short of breath, oxygen saturation 86% on room air, patient on 4 L to maintain a saturation of 92%. Patient continues wheezing, patient needs to be admitted Lab Data Result diagrams: 08/19/20 05:06 08/19/20 05:06 Labs: Lab Results 08/19/20 08/19/20 08/19/20 Range/Units 05:06 05:06 05:06 WBC 10.1 (4.8-10.8) X10*3/uL RBC 4.85 (4.60-5.80) X10*6/uL Hgb 15.7 (14.0-18.0) g/dl Hct 45.5 (42-52) % MCV 93.8 (80-98) fL MCH 32.4 (27.0-33.0) pg MCHC 34.5 (31.0-36.0) g/dl RDW 13.1 (11.0-16.0) % Plt Count 214 (160-400) X10*3/uL MPV 9.5 (9.4-12.4) fL Immature Gran % (Auto) 0.5 H (0.0-0.4) % Neut % (Auto) 74.6 H (45-73) % Lymph % (Auto) 10.0 L (20-40) % [place] % (Auto) 7.7 (2-11) % Eos % (Auto) 6.9 H (0-4) % Baso % (Auto) 0.3 (0-2) % Lymph # (Auto) 1.0 L (1.2-4.9) X10*3/uL [place] # (Auto) 0.8 (0.1-1.2) X10*3/uL Eos # (Auto) 0.7 H (0.0-0.4) X10*3/uL Baso # (Auto) 0.0 (0.0-0.2) X10*3/uL Abs Immat Gran (auto) 0.05 H (0.00-0.03) X10*3/uL Absolute Neuts (auto) 7.6 (2.0-8.3) X10*3/uL Absolute Nucleated RBC 0.000 (0.0-0.012) X10*3/uL Nucleated RBC % (auto) 0.0 (0.0-0.2) /100WBC Sodium 137 (135-145) mmol/L Potassium 3.6 (3.3-5.1) mmol/L Chloride 101 (96-108) mmol/L Carbon Dioxide 28 (22-29) mmol/L Anion Gap 12 (12-20) BUN 11 (9-16) mg/dL Creatinine 1.04 (0.5-1.4) mg/dL Estim Creat Clear Calc 67.3 Estimated GFR > 60 Random Glucose 115 (60-115) mg/dL Calcium 8.6 (8.4-10.2) mg/dL Troponin I High Sens 7.3 (<3.5-35.0) ng/L B-Natriuretic Peptide 18 (<100) pg/mL Imaging Data Chest x-ray: Radiologist's impression: Right hand overlies the superior half of the right hemithorax, limiting assessment of this region. Lungs are hyperexpanded. No focal airspace consolidation is identified. No pneumothorax or pleural effusion. Sensitivity for abnormalities in the right upper lung region is limited. Cardiac and mediastinal contours are normal. Mild degenerative spondylosis in the thoracic spine. XR/XR chest 1V IMPRESSION: Hyperexpanded lungs. No acute findings, though assessment of the right upper lobe is limited by the overlying right hand. ECG Data Attestation: I personally reviewed and interpreted this ECG as follows: (Sinus rhythm, heart rate 90, no ST segment depression or elevation, no T-wave inversion, QTC 450) Critical Care Time Critical Care Time Total Critical Care Time: 60 Discharge Plan Discharge Clinical Impression: Asthma with acute exacerbation Patient Disposition: Admitted As Inpatient
[2020-08-19 05:12] LABS: Basophils Percent Auto 0.3 % (0-2); Eosinophils Absolute Auto 0.7 X10*3/uL (0.0-0.4); Eosinophils Percent Auto 6.9 % (0-4); Hematocrit 45.5 % (42-52); Hemoglobin 15.7 g/dl (14.0-18.0); Imm Gran Abs Auto 0.05 X10*3/uL (0.00-0.03); Imm Gran Pct Auto 0.5 % (0.0-0.4); Mean Corpuscular HGB Conc 34.5 g/dl (31.0-36.0); Mean Corpuscular Hemoglobin 32.4 pg (27.0-33.0); Mean Corpuscular Volume 93.8 fL (80-98); Mean Platelet Volume 9.5 fL (9.4-12.4); Monocytes Absolute Auto 0.8 X10*3/uL (0.1-1.2); Monocytes Percent Auto 7.7 % (2-11); Neutrophils Absolute Auto 7.6 X10*3/uL (2.0-8.3); Neutrophils Percent Auto 74.6 % (45-73); Platelet Count 214 X10*3/uL (160-400); Red Blood Count 4.85 X10*6/uL (4.60-5.80); Red Cell Distribution Width 13.1 % (11.0-16.0); White Blood Count 10.1 X10*3/uL (4.8-10.8)
[2020-08-19 05:33] LABS: Anion Gap 12 (12-20); Blood Urea Nitrogen 11 mg/dL (9-16); Calcium 8.6 mg/dL (8.4-10.2); Carbon Dioxide 28 mmol/L (22-29); Chloride 101 mmol/L (96-108); Creatinine Clr Calc Pharmacy 67.3; Estimated Glomerular Filt Rate > 60; Glucose Random 115 mg/dL (60-115); Potassium 3.6 mmol/L (3.3-5.1); Sodium 137 mmol/L (135-145)
--- NOTE | 2020-08-19 05:38 | ECG_ITS ---
Test Reason : SOB Blood Pressure : / mmHG Vent. Rate : 090 BPM Atrial Rate : 090 BPM P-R Int : 140 ms QRS Dur : 088 ms QT Int : 368 ms P-R-T Axes : 080 -57 040 degrees QTc Int : 450 ms Normal sinus rhythm Right atrial enlargement Pulmonary disease pattern Left anterior fascicular block Septal infarct , age undetermined Abnormal ECG No previous ECGs available Referred By: Rain Krishnamurthy Electronically Signed By:Zack Sumner
[2020-08-19 05:39] LABS: B Type Natriuretic Peptide 18 pg/mL (<100); Troponin-I High Sensitivity 7.3 ng/L (<3.5-35.0)
--- NOTE | 2020-08-19 08:29 | P.HPHOSP_ITS ---
History of Present Illness Date of Service: 08/19/20 Chief Complaint: sob 59M presented with 3 days sob, patient states prior to this he was feeling well, he has history of asthma, uses albuterol inhaler occasionally, 3 days ptp, he started having sob, cough, wheeze, denies fever, chills, chest pain. patient denies tobacco smoke, but does smoke crack, drinks hard liquor, usually daily, but has not had a drink for last 3 days. he does feel mild withdrawl symptoms. in ED found to be hypoxic in the 80s on room air, CXR hyperinflated, otherwise undermarkable. Review of Systems Review of Systems: Constitutional: Denies fever, denies Chills Eyes: denies blurry vision ENT: denies sore throat CVS: denies chest pain Respiratory: dyspnea GI: no abdominal pain : denies dysuria MSK: denies neck pain Skin: denies rash Neuro: denies specific motor weakness Psych: denies suicidal ideation Endocrine: denies heat/cold intoleratnce Hematologic: denies easy bleeding Allergy: denies hives [facility] Medical History Asthma Social History Alcohol intake: current Alcohol intake frequency: 3 or more drinks per day Alcohol type: hard liquor Smoked in Last 30 Days: No Substance Use Type: Crack/Cocaine Substance Use Frequency: Occasionally Last Used Substance: Days (ago) Any prior treatment program specific to substance use: No Advance Directives: No Advance Directives Information Provided: No Meds Allergies Allergy/AdvReac Type Severity Reaction Status Date / Time No Known Allergies Allergy Verified 08/19/20 03:56 Home Medications Medication Instructions Recorded Confirmed Last Taken Type albuterol sulfate [Ventolin HFA] 2 puff INHALATION Q4H PRN 08/19/20 08/19/20 Unk nown History Physical Exam Vital Signs and Narrative: Vital Signs: Last Vital Signs Pulse 89 08/19/20 08:06 Resp 22 H 08/19/20 08:06 BP 128/69 08/19/20 08:06 Pulse Ox 95 08/19/20 08:06 Body Mass Index 21.7 General: dyspneic on exertion HEENT: atraumatic Neck: normal to visual inspection CVS: S1, S2, RRR Resp: tight, exp wheezes Chest: non tender GI: soft, non tender, non distended : no CVA tenderness Skin: no rashes Extremities: no edema Neuro: Oriented X3, grossly intact Psych: cooperative Results Labs CBC and Chem 7: 08/19/20 05:06 08/19/20 05:06 Labs: Laboratory Results - last 24 hr 08/19/20 08/19/20 08/19/20 05:06 05:06 05:06 MCV 93.8 MCH 32.4 MCHC 34.5 RDW 13.1 Plt Count 214 MPV 9.5 Immature Gran % (Auto) 0.5 H Neut % (Auto) 74.6 H Lymph % (Auto) 10.0 L [place] % (Auto) 7.7 Eos % (Auto) 6.9 H Baso % (Auto) 0.3 Lymph # (Auto) 1.0 L [place] # (Auto) 0.8 Eos # (Auto) 0.7 H Baso # (Auto) 0.0 Abs Immat Gran (auto) 0.05 H Absolute Neuts (auto) 7.6 Absolute Nucleated RBC 0.000 Nucleated RBC % (auto) 0.0 Anion Gap 12 Estim Creat Clear Calc 67.3 Estimated GFR > 60 Random Glucose 115 Calcium 8.6 Troponin I High Sens 7.3 B-Natriuretic Peptide 18 Imaging Radiologist's Impressions: Impressions Chest X-Ray 08/19/20 04:48 IMPRESSION: Hyperexpanded lungs. No acute findings, though assessment of the right upper lobe is limited by the overlying right hand. Assessment and Plan (1) Asthma with acute exacerbation: Qualifiers: Asthma persistence: unspecified Asthma severity: unspecified severity Qualified Code(s): J45.901 - Unspecified asthma with (acute) exacerbation Status: Acute 59M presented with sob acute hypoxic respiratory failure due to asthma/copd exacerbation steroids, bronchodilators, wean o2 as tolerated alcohol dependence with withdrawl phenobarb, ciwa polysubstance abuse care team eval screen for HCV, HIV (in chart from [facility] 2019, mentions family reports of HIV positivity, labs at that time were negative and patient denied, will recheck though) Quality Stroke Does the patient have a stroke diagnosis?: No VTE Prior VTE?: No VTE Risk Level:: Medical - moderate - high VTE Device Contraindication: Treatment Not Indicated VTE Drug Contraindication: N/A - Med Ordered
[2020-08-19] MEDS: Enoxaparin Sodium 40 MG/0.4 ML SYRINGE SUBCUT (09:11)
[2020-08-19] MEDS: PHENobarbitaL sodium 130 MG/ML VIAL 202 MG IM (09:11)
--- NOTE | 2020-08-19 09:54 | MHC.CARE ---
09:30 - Met with pt upon request for a consult by Dr Clinton for polysubstance abuse. Pt is a daily consumer of alcoholic beverages, hard liquor, and occasionally uses crack cocaine. Pt is not [place]ian proficient, thus an software administrator was required. Pt is interested in being put in contact with Recovery services and requires any literature to be in [place]. Pt is being admitted to the nursing floors later today, CARE Team will ask the Recovery Team to follow up on Sunday 08/20.
[2020-08-19] MEDS: PHENobarbitaL sodium 130 MG/ML VIAL 151 MG IM ×2 (11:12→15:23)
[2020-08-19] MEDS: 0.9 % Sodium Chloride Flush 3 ML SYRINGE IVFLUSH (17:13)
[2020-08-19] MEDS: methylPREDNISolone Sod Succ 125 MG/2 ML VIAL 60 MG IVPUSH (17:13)
[2020-08-19] MEDS: PHENobarbitaL 15 MG TABLET 45 MG PO (21:51)
[2020-08-20] VITALS (8 sets, daily range): BP systolic 124–176; BP diastolic 71–100; PULSE 67–78; RESP 16–18; TEMP 36–36.5; O2SAT 94–100
[2020-08-20] MEDS: 0.9 % Sodium Chloride Flush 3 ML SYRINGE IVFLUSH ×3 (01:27→17:23)
[2020-08-20] MEDS: methylPREDNISolone Sod Succ 125 MG/2 ML VIAL 60 MG IVPUSH ×2 (05:45→17:23)
[2020-08-20 06:44] LABS: Hematocrit 47.6 % (42-52); Hemoglobin 16.1 g/dl (14.0-18.0); Mean Corpuscular HGB Conc 33.8 g/dl (31.0-36.0); Mean Corpuscular Hemoglobin 32.1 pg (27.0-33.0); Mean Platelet Volume 10.2 fL (9.4-12.4); Platelet Count 237 X10*3/uL (160-400); Red Blood Count 5.01 X10*6/uL (4.60-5.80); Red Cell Distribution Width 13.2 % (11.0-16.0); White Blood Count 11.3 X10*3/uL (4.8-10.8)
[2020-08-20 07:43] LABS: Alanine Aminotransferase 25 U/L (0-40); Alkaline Phosphatase 57 U/L (39-117); Anion Gap 13 (12-20); Aspartate Amino Transferase 31 U/L (5-37); Bilirubin Direct 0.2 mg/dL (0.0-0.5); Bilirubin Total 0.7 mg/dL (0.0-1.0); Blood Urea Nitrogen 23 mg/dL (9-16); Calcium 9.5 mg/dL (8.4-10.2); Carbon Dioxide 29 mmol/L (22-29); Chloride 100 mmol/L (96-108); Creatinine Clr Calc Pharmacy 78.7; Estimated Glomerular Filt Rate > 60; Glucose Random 105 mg/dL (60-115); Potassium 5.4 mmol/L (3.3-5.1); Sodium 137 mmol/L (135-145)
--- NOTE | 2020-08-20 09:21 | HO.PM.IMPN ---
Subjective Subjective Date of Service: 08/20/20 Interval History: sob Cardiovascular Cardiovascular: Reports no additional cardiovascular complaints Gastrointestinal Gastrointestinal: Reports no additional gastrointestinal complaints Physical Exam Vital Signs: Vital Signs: Last Vital Signs Temp 97.4 F 08/20/20 07:53 Pulse 78 08/20/20 07:53 Resp 18 08/20/20 07:53 BP 176/99 H 08/20/20 07:53 Pulse Ox 100 08/20/20 07:53 Body Mass Index 21.7 General: AO X 3, dysphneic Resp: diminished, wheezes CVS: S1,S2,RRR GI: soft, non tender, non distended Neuro: motor grossly intact Psych: appropriate affect Objective Data Current Medications Generic Name Dose Route Start Last Admin Trade Name Freq PRN Reason Stop Dose Admin Albuterol/Ipratropium 3 ml 08/19/20 08:37 Albuterol/Iprat 2.5/0.5mg 3 Ml Ampul.Neb INHALE Q4H PRN sob Enoxaparin Sodium 40 mg 08/19/20 09:15 08/19/20 09:11 Enoxaparin Sodium 40 Mg/0.4 Ml Syringe SUBCUT 40 mg Q24H EMIGDIO Administration Medication 1 each 08/19/20 09:00 No Benzodiazepines MISCELLANE DAILY [facility] Methylprednisolone Sodium Succinate 60 mg 08/19/20 18:00 08/20/20 05:45 Methylprednisolone Sod Succ 125 Mg/2 Ml Vial IVPUSH 60 mg Q12H EMIGDIO Administration Phenobarbital 45 mg 08/19/20 21:00 08/19/20 21:51 Phenobarbital 15 Mg Tablet PO 08/21/20 09:01 45 mg BID EMIGDIO Administration Protocol Phenobarbital 15 mg 08/21/20 21:00 Phenobarbital 15 Mg Tablet PO 08/23/20 09:01 BID EMIGDIO Protocol Phenobarbital 15 mg 08/24/20 09:00 Phenobarbital 15 Mg Tablet PO 08/25/20 09:01 DAILY EMIGDIO Protocol Sodium Chloride 3 ml 08/19/20 16:00 08/20/20 01:27 0.9 % Sodium Chloride Flush 3 Ml Syringe IVFLUSH 3 ml QSHIFT EMIGDIO Administration Labs CBC & Chem 7: 08/20/20 06:02 08/20/20 06:02 Labs: Laboratory Results - last 24 hr 08/20/20 08/20/20 08/20/20 06:02 06:02 06:02 WBC 11.3 H RBC 5.01 Hgb 16.1 Hct 47.6 MCV 95.0 MCH 32.1 MCHC 33.8 RDW 13.2 Plt Count 237 MPV 10.2 Absolute Nucleated RBC 0.000 Nucleated RBC % (auto) 0.0 Sodium 137 Potassium 5.4 H D Chloride 100 Carbon Dioxide 29 Anion Gap 13 BUN 23 H D Creatinine 0.89 Estim Creat Clear Calc 78.7 Estimated GFR > 60 Random Glucose 105 Calcium 9.5 D Total Bilirubin 0.7 Cancelled Direct Bilirubin 0.2 Cancelled AST 31 Cancelled ALT 25 Cancelled Alkaline Phosphatase 57 Cancelled Total Protein 7.0 Cancelled Albumin 4.0 Cancelled Quality Stroke Does the patient have a stroke diagnosis?: No VTE Prior VTE?: No VTE Risk Level:: Medical - moderate - high VTE Device Contraindication: Treatment Not Indicated VTE Drug Contraindication: N/A - Med Ordered Assessment and Plan (1) Asthma with acute exacerbation: Status: Acute Assessment and Plan: 59M presented with sob acute hypoxic respiratory failure due to asthma/copd exacerbation still wheezy, continue steroids, bronchodilators, wean o2 as tolerated alcohol dependence with withdrawl phenobarb, ciwa polysubstance abuse care team eval screen for HCV, HIV (in chart from [facility] 2019, mentions family reports of HIV positivity, labs at that time were negative and patient denied, will recheck though)
[2020-08-20] MEDS: PHENobarbitaL 15 MG TABLET 45 MG PO ×2 (09:35→20:24)
[2020-08-20] MEDS: Enoxaparin Sodium 40 MG/0.4 ML SYRINGE SUBCUT (09:36)
--- NOTE | 2020-08-20 10:50 | MHC.RECOVSUP ---
Recovery Support note: Patient is a 59 year old Faroese speaking male who presented to [facility] ED due to asthma exacerbation. This continuity writer met with patient with an [facility] educational interpreter to discuss his alcohol and cocaine use. Patient reports he is not interested in resources or supports at this time. Patient reports using crack cocaine once in a while when he has the money to do so however he does not find his use to be problematic. Patient reports his alcohol consumption is more problematic at this time. Patient reports he has made efforts to reduce his consumption in the past and has attended AA meetings in Faroese. Patient reports he did not find the AA meetings helpful and he does not think group supports in general would be helpful for him. Patient is aware of [facility] and has been there in the past. Discussed multiple pathways of recovery with patient and encouraged him to revisit [facility] as they have other supports aside from group meetings. Patient acknowledged and accepted information on [facility] in Faroese. Patient is not interested in meeting with a Diamond Cutter at this time. Encouraged patient to let his nurse know if he would like to discuss his recovery and recovery supports further. Patient acknowledged.
--- NOTE | 2020-08-20 13:12 | MHC.CM.PN ---
NURSE AIRCRAFT TECHNICIAN NOTE ELECTRONIC MEDICAL RECORD REVIEWED ALONG WITH CASE DISCUSSED WITH STAFF NURSE , MET WITH PATIENT HE IS [place] SPEAKING AND DOES SPEAK UNDERSTAND SOME CITIZEN OF [place] AND [place], HE LIVES ALONE , HE IS ACTIVE INDEPENDENT IN ADLS AND MOBILITY.HE HAS HISTORY OF ASTHMA AND REPORTS ONLY USING INHALERS AT HOME HE REPORTED LATELY DRINKING MORE ETOH SOMETIMES MORE THAN 3 DRINKS OF HARD LIQUOR VODKA AND SOME TIMES IN ADDITION BEER, HE REPORTED WHEN ASKED HE HAS NEVER FALLEN, LOSS OF CONSCIOUSNESS, OR SEIZURE SECONDARY TO ETOH USE. HE ALSO REPORTED HE USES CRACK , HE USE TO USE COCAINE IN THE PAST . PHYSICIAN ORDERED CARES TEAm consult for etoh abuse , patient was seen by worker he was open to speaking with the recovery support team worker. he was seen by the recovery support team long term care social worker (PATIENT IS NOW NOT INTERESTED IN AA MEETINGS HE DOES NOT FIND THEM HELPFUL, NOR DOES HE THINK SUPPORT GROUP ARE HELPFUL, VARIOUS PATHWAYS OF RECOVERY WERE DISCUSSED FOR RECOVERY , HE WAS GIVEN INFORMATION ON [facility] IN [place] DISCHARGED PLAN HOME WITH NO SERVICES , RECOVERY TEAM WORKER GIVEN RECOMENDATION FOR [facility] TO PATIENT HAS NO PCP ENCOURAGED HIM TO CHOSE ONE FROM THE LIST TRANSPORTATION PATIENT TO SELF ARRANGE
[2020-08-21] VITALS (8 sets, daily range): BP systolic 124–159; BP diastolic 66–89; PULSE 69–84; RESP 18–20; TEMP 35.8–36.9; O2SAT 91–94
[2020-08-21] MEDS: 0.9 % Sodium Chloride Flush 3 ML SYRINGE IVFLUSH ×3 (01:16→17:01)
[2020-08-21] MEDS: methylPREDNISolone Sod Succ 125 MG/2 ML VIAL 60 MG IVPUSH ×2 (06:51→17:01)
[2020-08-21 07:27] LABS: HIV AB/AG Nonreactive (Nonreactive); HIV Num 1 0.14 S/CO (0.00-0.99)
[2020-08-21 07:29] LABS: ~HepC Num1 17.43 S/CO (0.00-0.79); ~Hepatitis C Antibody Reactive (Nonreactive)
[2020-08-21] MEDS: Albuterol/Iprat 2.5/0.5MG 3 ML AMPUL.NEB INHALE ×2 (07:56→15:28)
[2020-08-21] MEDS: PHENobarbitaL 15 MG TABLET 45 MG PO (09:11)
[2020-08-21] MEDS: Enoxaparin Sodium 40 MG/0.4 ML SYRINGE SUBCUT (09:12)
--- NOTE | 2020-08-21 09:47 | HO.PM.IMPN ---
Subjective Subjective Date of Service: 08/21/20 Interval History: improving, sob Cardiovascular Cardiovascular: Reports no additional cardiovascular complaints Gastrointestinal Gastrointestinal: Reports no additional gastrointestinal complaints Physical Exam Vital Signs: Vital Signs: Last Vital Signs Temp 97.0 F 08/21/20 08:00 Pulse 73 08/21/20 08:00 Resp 20 08/21/20 08:00 BP 137/83 08/21/20 08:00 Pulse Ox 92 08/21/20 08:00 Body Mass Index 21.7 General: AO X 3, dysphneic Resp: diminished, wheezes CVS: S1,S2,RRR GI: soft, non tender, non distended Neuro: motor grossly intact Psych: appropriate affect Objective Data Current Medications Generic Name Dose Route Start Last Admin Trade Name Freq PRN Reason Stop Dose Admin Albuterol/Ipratropium 3 ml 08/19/20 08:37 08/21/20 07:56 Albuterol/Iprat 2.5/0.5mg 3 Ml Ampul.Neb INHALE 3 ml Q4H PRN Administration sob Enoxaparin Sodium 40 mg 08/19/20 09:15 08/21/20 09:12 Enoxaparin Sodium 40 Mg/0.4 Ml Syringe SUBCUT 40 mg Q24H EMIGDIO Administration Medication 1 each 08/19/20 09:00 No Benzodiazepines MISCELLANE DAILY EMIGDIO Methylprednisolone Sodium Succinate 60 mg 08/19/20 18:00 08/21/20 06:51 Methylprednisolone Sod Succ 125 Mg/2 Ml Vial IVPUSH 60 mg Q12H EMIGDIO Administration Phenobarbital 15 mg 08/21/20 21:00 Phenobarbital 15 Mg Tablet PO 08/23/20 09:01 BID EMIGDIO Protocol Phenobarbital 15 mg 08/24/20 09:00 Phenobarbital 15 Mg Tablet PO 08/25/20 09:01 DAILY EMIGDIO Protocol Sodium Chloride 3 ml 08/19/20 16:00 08/21/20 07:42 0.9 % Sodium Chloride Flush 3 Ml Syringe IVFLUSH 3 ml QSHIFT EMIGDIO Administration Labs CBC & Chem 7: 08/20/20 06:02 08/20/20 06:02 Labs: Laboratory Results - last 24 hr 08/21/20 08/21/20 06:28 06:28 Hepatitis C Ab (EIA) Reactive H HIV 1&2 Ab/P24 Ag 4thGn Nonreactive Quality Stroke Does the patient have a stroke diagnosis?: No VTE Prior VTE?: No VTE Risk Level:: Medical - moderate - high VTE Device Contraindication: Treatment Not Indicated VTE Drug Contraindication: N/A - Med Ordered Assessment and Plan (1) Asthma with acute exacerbation: Status: Acute Assessment and Plan: 59M presented with sob acute hypoxic respiratory failure due to asthma/copd exacerbation now off o2, still very wheezy and sob, continue steroids and bronchodilators alcohol dependence with withdrawl phenobarb, ciwa polysubstance abuse care team eval HCV positive, unclear treatment status, can follow up outpatient in chart from [facility] 2019, mentions family reports of HIV positivity, labs at that time were negative and continue to be negative today, likely HIV was confused with HCV.
[2020-08-21] MEDS: PHENobarbitaL 15 MG TABLET PO (22:15)
[2020-08-22] VITALS (8 sets, daily range): BP systolic 128–150; BP diastolic 65–97; PULSE 62–92; RESP 14–19; TEMP 36.2–37.1; O2SAT 91–96
[2020-08-22] MEDS: 0.9 % Sodium Chloride Flush 3 ML SYRINGE IVFLUSH ×4 (01:58→20:07)
[2020-08-22] MEDS: methylPREDNISolone Sod Succ 125 MG/2 ML VIAL 60 MG IVPUSH ×2 (06:17→16:56)
[2020-08-22] MEDS: PHENobarbitaL 15 MG TABLET PO ×2 (07:55→20:06)
[2020-08-22] MEDS: Enoxaparin Sodium 40 MG/0.4 ML SYRINGE SUBCUT (07:55)
--- NOTE | 2020-08-22 09:15 | HO.PM.IMPN ---
Subjective Subjective Date of Service: 08/22/20 Interval History: still sob, doesnt feel well enough to go home Cardiovascular Cardiovascular: Reports no additional cardiovascular complaints Gastrointestinal Gastrointestinal: Reports no additional gastrointestinal complaints Physical Exam Vital Signs: Vital Signs: Last Vital Signs Temp 97.5 F 08/22/20 07:45 Pulse 62 08/22/20 07:45 Resp 19 08/22/20 07:45 BP 150/85 H 08/22/20 07:45 Pulse Ox 94 08/22/20 07:45 Body Mass Index 21.7 General: AO X 3, dyspneic Resp: diminished, wheezes CVS: S1,S2,RRR GI: soft, non tender, non distended Neuro: motor grossly intact Psych: appropriate affect Objective Data Current Medications Generic Name Dose Route Start Last Admin Trade Name Freq PRN Reason Stop Dose Admin Albuterol/Ipratropium 3 ml 08/19/20 08:37 08/21/20 15:28 Albuterol/Iprat 2.5/0.5mg 3 Ml Ampul.Neb INHALE 3 ml Q4H PRN Administration sob Enoxaparin Sodium 40 mg 08/19/20 09:15 08/22/20 07:55 Enoxaparin Sodium 40 Mg/0.4 Ml Syringe SUBCUT 40 mg Q24H EMIGDIO Administration Medication 1 each 08/19/20 09:00 No Benzodiazepines MISCELLANE DAILY EMIGDIO Methylprednisolone Sodium Succinate 60 mg 08/19/20 18:00 08/22/20 06:17 Methylprednisolone Sod Succ 125 Mg/2 Ml Vial IVPUSH 60 mg Q12H EMIGDIO Administration Phenobarbital 15 mg 08/21/20 21:00 08/22/20 07:55 Phenobarbital 15 Mg Tablet PO 08/23/20 09:01 15 mg BID EMIGDIO Administration Protocol Phenobarbital 15 mg 08/24/20 09:00 Phenobarbital 15 Mg Tablet PO 08/25/20 09:01 DAILY EMIGDIO Protocol Sodium Chloride 3 ml 08/19/20 16:00 08/22/20 07:56 0.9 % Sodium Chloride Flush 3 Ml Syringe IVFLUSH 3 ml QSHIFT EMIGDIO Administration Labs CBC & Chem 7: 08/20/20 06:02 08/20/20 06:02 Quality Stroke Does the patient have a stroke diagnosis?: No VTE Prior VTE?: No VTE Risk Level:: Medical - moderate - high VTE Device Contraindication: Treatment Not Indicated VTE Drug Contraindication: N/A - Med Ordered Assessment and Plan (1) Asthma with acute exacerbation: Status: Acute Assessment and Plan: 59M presented with sob acute hypoxic respiratory failure due to asthma/copd exacerbation now off o2,continues to be very wheezy and sob, continue steroids and bronchodilators will add azithro alcohol dependence with withdrawl phenobarb, ciwa polysubstance abuse care team eval HCV positive, unclear treatment status, can follow up outpatient in chart from [facility] 2019, mentions family reports of HIV positivity, labs at that time were negative and continue to be negative today, likely HIV was confused with HCV.
[2020-08-22] MEDS: Azithromycin 500 MG TABLET PO (10:49)
[2020-08-22] MEDS: Albuterol/Iprat 2.5/0.5MG 3 ML AMPUL.NEB INHALE (16:24)
[2020-08-23 04:00] VITALS: BP 137/72; PULSE 57; RESP 16; TEMP 35.9; O2SAT 97
[2020-08-23] MEDS: methylPREDNISolone Sod Succ 125 MG/2 ML VIAL 60 MG IVPUSH (05:11)
[2020-08-23] MEDS: guaiFENesin DM 100/10/5 ML 5 ML SYRUP PO (06:07)
[2020-08-23 06:46] LABS: Hematocrit 47.8 % (42-52); Hemoglobin 15.9 g/dl (14.0-18.0); Mean Corpuscular HGB Conc 33.3 g/dl (31.0-36.0); Mean Corpuscular Hemoglobin 32.1 pg (27.0-33.0); Mean Corpuscular Volume 96.4 fL (80-98); Mean Platelet Volume 10.1 fL (9.4-12.4); Platelet Count 244 X10*3/uL (160-400); Red Blood Count 4.96 X10*6/uL (4.60-5.80); Red Cell Distribution Width 13.1 % (11.0-16.0); White Blood Count 11.5 X10*3/uL (4.8-10.8)
[2020-08-23 07:26] LABS: Anion Gap 13 (12-20); Blood Urea Nitrogen 24 mg/dL (9-16); Calcium 9.1 mg/dL (8.4-10.2); Carbon Dioxide 30 mmol/L (22-29); Chloride 97 mmol/L (96-108); Estimated Glomerular Filt Rate > 60; Glucose Fasting 128 mg/dL (60-99); Potassium 4.1 mmol/L (3.3-5.1); Sodium 136 mmol/L (135-145)
[2020-08-23] MEDS: Albuterol/Iprat 2.5/0.5MG 3 ML AMPUL.NEB INHALE (07:31)
[2020-08-23 07:32] VITALS: PULSE 70; O2SAT 93
[2020-08-23 07:35] VITALS: BP 146/81; PULSE 64; RESP 19; TEMP 36.2; O2SAT 95
[2020-08-23] MEDS: PHENobarbitaL 15 MG TABLET PO (08:04)
[2020-08-23] MEDS: Azithromycin 500 MG TABLET PO (08:04)
[2020-08-23] MEDS: Enoxaparin Sodium 40 MG/0.4 ML SYRINGE SUBCUT (08:04)
[2020-08-23] MEDS: 0.9 % Sodium Chloride Flush 3 ML SYRINGE IVFLUSH (08:06)
--- NOTE | 2020-08-23 12:03 | PM.DS ---
DS: Providers Provider Date of Service: 08/23/20 Date of admission: 08/19/20 08:28 Primary care physician: None Physician Consults: 08/19/20 08:37 Consult to Care Team Routine Comment: Reason for consultation: polysubstance abuse DS: Diagnosis Discharge Diagnosis (1) Asthma with acute exacerbation: Status: Acute (2) Alcohol withdrawal: Status: Acute DS: Medications Discharge Medications Home Medications: Home Medications Medication Instructions Recorded Confirmed albuterol sulfate [Ventolin HFA] 2 puff INHALATION Q4H PRN 08/19/20 08/19/20 Previous Rx's Medication Instructions Recorded azithromycin 500 mg PO Q24H #3 tab 08/23/20 fluticasone propion-salmeterol 1 inh INHALATION BID #1 ea 08/23/20 [AirDuo Digihaler] prednisone 40 mg PO DAILY #6 tab 08/23/20 DS: Summary Hospital Course Hospital Course: Admission note HPI 59M presented with 3 days sob, patient states prior to this he was feeling well, he has history of asthma, uses albuterol inhaler occasionally, 3 days ptp, he started having sob, cough, wheeze, denies fever, chills, chest pain. patient denies tobacco smoke, but does smoke crack, drinks hard liquor, usually daily, but has not had a drink for last 3 days. he does feel mild withdrawl symptoms. in ED found to be hypoxic in the 80s on room air, CXR hyperinflated, otherwise undermarkable. Hospital course The patient was treated with IV steroids, bronchodilator nebulizers and oxygen supplement with good response over the course of hospital stay and he was weaned off the oxygen and was able to ambulate freely on room air. To be discharged home on azithromycin, prednisone and to start Bronchodilator inhaler. treated with phenobarbital for alcohol withdrawal symptoms. Time Spent with Patient Time attestation: Total time spent providing and/or coordinating discharge services: Discharge coordination time: Greater than 30 minutes Quality: Stroke Does the patient have a stroke diagnosis?: No Physical Exam Vital Signs: Vital Signs: Last Vital Signs Temp 97.1 F 08/23/20 07:35 Pulse 64 08/23/20 07:35 Resp 19 08/23/20 07:35 BP 146/81 H 08/23/20 07:35 Pulse Ox 95 08/23/20 07:35 Body Mass Index 21.7 Const: Other: Constitutional : Alert, oriented, not in distress Neck : Normal inspection, Supple Cardiovascular : RRR, S1 S2, no lower extremity edema Respiratory : Good bilateral air entry, no crackles, Expiratory fine wheezes Gastrointestinal: soft, lax, Normal bowel sounds, Non tender Skin : Warm/Dry, No rash Neurological : Alert & oriented x3, No focal deficit DS: Data Data Completed and Pending Labs on day of discharge: Laboratory Results - last 24 hr 08/23/20 08/23/20 05:54 05:54 WBC 11.5 H RBC 4.96 Hgb 15.9 Hct 47.8 MCV 96.4 MCH 32.1 MCHC 33.3 RDW 13.1 Plt Count 244 MPV 10.1 Absolute Nucleated RBC 0.000 Nucleated RBC % (auto) 0.0 Sodium 136 Potassium 4.1 D Chloride 97 Carbon Dioxide 30 H Anion Gap 13 BUN 24 H Creatinine 1.06 Estim Creat Clear Calc 66.0 Estimated GFR > 60 Fasting Glucose 128 H Calcium 9.1 Discharge Plan Discharge Patient Disposition: Home, Self-Care Discharge Diagnosis: COPD exacerbation Referrals: Physician,None [Primary Care Provider] - 1 Week Discharge Medications: New azithromycin 500 mg Tablet 500 mg PO Q24H Qty: 3 RF: 0 prednisone 20 mg tablet 40 mg PO DAILY Qty: 6 RF: 0 AirDuo Digihaler 55-14 mcg/actuation aero powdr breath act w/sensor 1 inh inhalation BID Qty: 1 RF: 2 Continued albuterol sulfate [Ventolin HFA] 90 mcg/actuation HFA aerosol inhaler 2 puff inhalation Q4H PRN (Reason: wheezing) RF: 0 Discharge Orders: Discharge Order (Routine); Ordered 08/23/20 Ordered By: Maximo Sexton Diet: advance to usual diet Activity on Discharge: As tolerated Stand Alone Forms: Patient Portal Discharge page Care Plan Goals: Read below Health Concerns: Read below Plan of Treatment: treated for COPD exacerbation Assessment: continue prednisone continue azithromycin Start new inhaler twice Daily
--- NOTE | 2020-08-23 12:33 | MHC.CM.PN ---
PT DISCHARGING HOME SELF-CARE, ELLY CONTACTED RE TOLBERT AT 12:05PM [phone] AND SHE WILL TRANSPORT PT.
== END 2020-08-23 13:02 | disposition home or self-care (01) | DRG 140 ==
LOC: HO.ED 06:03 → HO.EDOVER 08:54 → HO.S3 14:41
PROVIDERS: Admitting Provider Internal Medicine; Emergency Provider Emergency Medicine; Visit Provider Student in an Organized Health Care Education/Training Program
DX: J44.1 Chronic obstructive pulmonary disease with (acute) exacerbation (principal); J96.01 Acute respiratory failure with hypoxia; J45.901 Unspecified asthma with (acute) exacerbation; F10.239 Alcohol dependence with withdrawal, unspecified; F19.10 Other psychoactive substance abuse, uncomplicated; B19.20 Unspecified viral hepatitis C without hepatic coma; Z79.899 Other long term (current) drug therapy
CPT/HCPCS: 36415; 71045; 80048; 80076; 83880; 84484; 85025; 85027; 86803; 87389; 93005; 94640; 94644; 99285; J1650; J2560; J2930; J3475

== ENCOUNTER 2020-09-02 11:25 | Emergency (ER) | payer MEDICAID, SELFPAY ==
--- NOTE | ~2020-09-02 | XR_ITS ---
EXAMINATION: XR CHEST CLINICAL INFORMATION: Shortness of breath COMPARISON: 08/11/2020 TECHNIQUE: 2 views of the chest were obtained. FINDINGS: No focal consolidation, pulmonary edema, or pleural effusion. The lungs are hyperinflated with persistent reticular nodular densities in the right upper lobe. Stable cardiomediastinal silhouette. XR/XR chest 2V IMPRESSION: No acute cardiopulmonary findings. COPD. Reticulonodular opacities in the right upper lobe remain stable and could be better assessed with a chest CT.
[2020-09-02 11:37] VITALS: BP 151/92; PULSE 103; RESP 20; TEMP 37.1; O2SAT 94; BMI 23.3
--- NOTE | 2020-09-02 13:15 | ED.SOB ---
HPI - SOB/Dyspnea General Chief Complaint: Dyspnea Stated Complaint: DIFF BREATHING Time Seen by Provider: 09/02/20 12:32 Source: patient Mode of arrival: ambulatory Limitations: no limitations History of Present Illness MD elicited complaint: shortness of breath, cough and asthma attack Pertinent past history: asthma Onset (ago): day(s) (3) Context: smoke/fume exposure Timing: constant and progressively worsening Severity: moderate Exacerbating factors: exertion and coughing Relieving factors: nothing Known history of: asthma Associated symptoms: cough, wheezing and sputum production Treatment prior to arrival: bronchodilator Related Data Previous Rx's Medication Instructions Recorded albuterol sulfate 2 inh INHALATION Q4-6H PRN #1 ea 01/24/20 levofloxacin 750 mg PO DAILY 4 Days #4 tab 01/24/20 prednisone 40 mg PO DAILY #8 tab 01/24/20 azithromycin [Zithromax Z-Roderick] See Rx Instructions .ROUTE 02/14/20 .COMPLEX #6 tab doxycycline hyclate 100 mg PO DAILY #10 tab 02/14/20 prednisone 40 mg PO DAILY #10 tab 02/14/20 albuterol sulfate 2 puff INHALATION QID PRN #8.5 g 08/11/20 azithromycin See Rx Instructions .ROUTE 08/11/20 .COMPLEX #6 tab benzonatate [Tessalon Perles] 100 mg PO TID PRN #15 cap 08/11/20 prednisone 40 mg PO DAILY #10 tab 08/11/20 doxycycline hyclate 100 mg PO BID 7 Days #14 cap 09/02/20 ondansetron 4 mg PO Q8H PRN #20 tab 09/02/20 prednisone 60 mg PO DAILY 5 Days #15 tab 09/02/20 Allergies Allergy/AdvReac Type Severity Reaction Status Date / Time crab Allergy Severe SWELLING/RA Verified 08/11/20 10:33 Review of Systems Review of Systems: Constitutional : pos subjective Fever, No Chills ENT/Mouth : No Hoarseness, No sore throat, No Rhinorrhea Eyes: No Redness, No Discharge, No Vision Changes Cardiovascular : No Chest Pain, positive SOB, positive Dyspnea on Exertion, No Edema Respiratory : positive Cough, pos Sputum, positive Wheezing, Gastrointestinal : No Nausea, No Vomiting, No Diarrhea, No abdominal Pain Genitourinary : No Dysuria, No Hematuria Musculoskeletal : No joint pain, No Myalgias Skin : No rash Neuro : No Weakness, No Numbness, No Headache Psych : No anxiety, depression Heme/Lymph: No Bruising, No Bleeding Endocrine : No Polyuria, No Polydipsia All other systems reviewed and are negative [facility] Past Medical History Attestation statement: The following information was validated with the patient. Medical History Alcohol abuse Asthma Social History Social History Alcohol intake: current Alcohol intake frequency: 3 or more drinks per day Alcohol type: hard liquor Patient Tobacco Use Status: Never used Tobacco Use of substances other than those prescribed or required for medical reasons: No Substance Use Type: Crack/Cocaine Advance Directives: Yes Advance Directives Information Provided: Yes Advance Directives on File: No Advance Directives Date on File: 01/24/20 Physical Exam Vital Signs: Vital Signs: Last Vital Signs Temp 97.9 F 09/02/20 13:43 Pulse 94 09/02/20 15:06 Resp 19 09/02/20 14:31 BP 141/72 H 09/02/20 14:31 Pulse Ox 95 09/02/20 14:31 Body Mass Index 23.3 Appearance: Alert. Oriented X3. No acute distress. Eyes: Pupils equal, round and reactive to light. ENT: Pharynx normal. Neck: Normal inspection. Neck supple. CVS: Normal heart rate and rhythm. Pulses normal. Respiratory: No respiratory distress. Breath sounds insp and exp wheezes noted Abdomen: Soft and non-tender. Skin: Skin warm and dry. Normal skin color. Normal skin turgor. Extremities: No lower extremity edema. No calf ttp Neuro: Oriented X 3. No motor deficit. No sensory deficit. Course Course Course Narrative: the patient is still very wheezy, repeat 5mg neb ordered RT states that this is the patient's baseline, he is not hypoxic, no respiratory distress, INH ordered at this time 94% after 2nd neb feels much better wants to go home faint wheezes noted MDM - SOB/Dyspnea MDM Narrative Medical decision making narrative: 59 yo male with asthma still smokes c/o subj fevers productive cough x 3 days and not responding to INH at this time hour long 10mg neb, IV steroids, COVID swab, CXR - dispo per results and findings, likely asthma/bronchitis Lab Data Result diagrams: 09/02/20 13:29 09/02/20 13:58 Labs: Lab Results 09/02/20 09/02/20 09/02/20 Range/Units 13:00 13:29 13:58 WBC 7.3 (4.8-10.8) X10*3/uL RBC 5.30 (4.60-5.80) X10*6/uL Hgb 16.9 (14.0-18.0) g/dl Hct 50.0 (42-52) % MCV 94.3 (80-98) fL MCH 31.9 (27.0-33.0) pg MCHC 33.8 (31.0-36.0) g/dl RDW 13.0 (11.0-16.0) % Plt Count 226 (160-400) X10*3/uL MPV 9.5 (9.4-12.4) fL Immature Gran % (Auto) 0.3 (0.0-0.4) % Neut % (Auto) 68.1 (45-73) % Lymph % (Auto) 16.3 L (20-40) % [place] % (Auto) 9.4 (2-11) % Eos % (Auto) 5.5 H (0-4) % Baso % (Auto) 0.4 (0-2) % Lymph # (Auto) 1.2 (1.2-4.9) X10*3/uL [place] # (Auto) 0.7 (0.1-1.2) X10*3/uL Eos # (Auto) 0.4 (0.0-0.4) X10*3/uL Baso # (Auto) 0.0 (0.0-0.2) X10*3/uL Abs Immat Gran (auto) 0.02 (0.00-0.03) X10*3/uL Absolute Neuts (auto) 4.9 (2.0-8.3) X10*3/uL Absolute Nucleated RBC 0.000 (0.0-0.012) X10*3/uL Nucleated RBC % (auto) 0.0 (0.0-0.2) /100WBC Sodium 139 (135-145) mmol/L Potassium 4.9 (3.3-5.1) mmol/L Chloride 101 (96-108) mmol/L Carbon Dioxide 24 (22-29) mmol/L Anion Gap 19 (12-20) BUN 13 (9-16) mg/dL Creatinine 1.13 (0.5-1.4) mg/dL Estim Creat Clear Calc 60.4 Estimated GFR > 60 Random Glucose 98 (60-115) mg/dL Calcium 9.6 (8.4-10.2) mg/dL Total Bilirubin 1.2 H (0.0-1.0) mg/dL AST 30 (5-37) U/L ALT 25 (0-40) U/L Alkaline Phosphatase 79 D (39-117) U/L Total Protein 7.9 (6.5-8.0) g/dL Albumin 4.4 (3.5-5.0) g/dL COVID-19 ([facility]) Negative (Negative) COVID-19 Clin Com See Note Critical Care Time Critical Care Time Critical Care Time: Yes Total Critical Care Time: 30 Attestation: repeat nebs and reassessments I attest to this time spent taking care of the patient Discharge Plan Discharge Clinical Impression: Asthma with exacerbation Qualifiers: Asthma severity: moderate Asthma persistence: persistent Qualified Code(s): J45.41 - Moderate persistent asthma with (acute) exacerbation Patient Disposition: Home, Self-Care Instructions: Asthma (ED) Additional Instructions: return to ED for any worsening symptoms or concerns Prescriptions: New doxycycline hyclate 100 mg capsule 100 mg PO BID 7 Days Qty: 14 RF: 0 prednisone 20 mg tablet 60 mg PO DAILY 5 Days Qty: 15 RF: 0 ondansetron 4 mg tablet,disintegrating 4 mg PO Q8H PRN (Reason: nausea and vomiting) Qty: 20 RF: 0 No Action prednisone 20 mg tablet 40 mg PO DAILY Qty: 8 RF: 0 albuterol sulfate 90 mcg/actuation aerosol powdr breath activated 2 inh inhalation Q4-6H PRN (Reason: shortness of breath or wheezing) Qty: 1 RF: 0 levofloxacin 750 mg tablet 750 mg PO DAILY 4 Days Qty: 4 RF: 0 azithromycin [Zithromax Z-Roderick] 250 mg tablet See Rx Instructions .ROUTE .COMPLEX Qty: 6 RF: 0 prednisone 20 mg tablet 40 mg PO DAILY Qty: 10 RF: 0 doxycycline hyclate 100 mg tablet 100 mg PO DAILY Qty: 10 RF: 0 albuterol sulfate 90 mcg/actuation HFA aerosol inhaler 2 puff inhalation QID PRN (Reason: asthma) Qty: 8.5 RF: 0 prednisone 20 mg tablet 40 mg PO DAILY Qty: 10 RF: 0 azithromycin 250 mg tablet See Rx Instructions .ROUTE .COMPLEX Qty: 6 RF: 0 benzonatate [Tessalon Perles] 100 mg capsule 100 mg PO TID PRN (Reason: pain) Qty: 15 RF: 0 Print Language: Frisian
[2020-09-02 13:26] LABS: COVID-19 Test Negative (Negative)
[2020-09-02] MEDS: Albuterol Sulfate (0.083%) 2.5 MG/3 ML VIAL.NEB 10 MG INHALE (13:29)
[2020-09-02 13:33] VITALS: PULSE 85; O2SAT 98
[2020-09-02 13:33] LABS: MANUAL DIFF FLAG NO
[2020-09-02] MEDS: methylPREDNISolone Sod Succ 125 MG/2 ML VIAL IVPUSH (13:33)
[2020-09-02] MEDS: Magnesium Sulfate/H2O 2 GM/50 ML PIGGYBACK IV (13:34)
--- NOTE | 2020-09-02 13:35 | PC.NURSE ---
Pt has wheezes and ronchi throughout. Sats remain in high 90s. Pt does however feel sob. Breathing is not labored at this time.
[2020-09-02 13:37] LABS: Basophils Percent Auto 0.4 % (0-2); Eosinophils Absolute Auto 0.4 X10*3/uL (0.0-0.4); Eosinophils Percent Auto 5.5 % (0-4); Hemoglobin 16.9 g/dl (14.0-18.0); Imm Gran Abs Auto 0.02 X10*3/uL (0.00-0.03); Imm Gran Pct Auto 0.3 % (0.0-0.4); Lymphocytes Absolute Auto 1.2 X10*3/uL (1.2-4.9); Lymphocytes Percent Auto 16.3 % (20-40); Mean Corpuscular HGB Conc 33.8 g/dl (31.0-36.0); Mean Corpuscular Hemoglobin 31.9 pg (27.0-33.0); Mean Corpuscular Volume 94.3 fL (80-98); Mean Platelet Volume 9.5 fL (9.4-12.4); Monocytes Absolute Auto 0.7 X10*3/uL (0.1-1.2); Monocytes Percent Auto 9.4 % (2-11); Neutrophils Absolute Auto 4.9 X10*3/uL (2.0-8.3); Neutrophils Percent Auto 68.1 % (45-73); Platelet Count 226 X10*3/uL (160-400); White Blood Count 7.3 X10*3/uL (4.8-10.8)
[2020-09-02 13:43] VITALS: BP 147/91; PULSE 75; RESP 15; TEMP 36.6; O2SAT 96
[2020-09-02 14:27] LABS: Alanine Aminotransferase 25 U/L (0-40); Albumin Level 4.4 g/dL (3.5-5.0); Alkaline Phosphatase 79 U/L (39-117); Anion Gap 19 (12-20); Aspartate Amino Transferase 30 U/L (5-37); Bilirubin Total 1.2 mg/dL (0.0-1.0); Blood Urea Nitrogen 13 mg/dL (9-16); Calcium 9.6 mg/dL (8.4-10.2); Carbon Dioxide 24 mmol/L (22-29); Chloride 101 mmol/L (96-108); Creatinine Clr Calc Pharmacy 60.4; Estimated Glomerular Filt Rate > 60; Glucose Random 98 mg/dL (60-115); Potassium 4.9 mmol/L (3.3-5.1); Sodium 139 mmol/L (135-145); Total Protein 7.9 g/dL (6.5-8.0)
--- NOTE | 2020-09-02 14:29 | PC.NURSE ---
Pt remains wheezy after treatment but states that he does feel better. Sats remain mid-high 90s.
[2020-09-02 14:31] VITALS: BP 141/72; PULSE 92; RESP 19; O2SAT 95
[2020-09-02] MEDS: Albuterol Sulfate (0.083%) 2.5 MG/3 ML VIAL.NEB 5 MG INHALE (15:03)
[2020-09-02 15:06] VITALS: PULSE 94; O2SAT 92
[2020-09-02] MEDS: Albuterol Sulfate 90 MCG 8 GM INHALER 2 PUFF INHALE (16:01)
[2020-09-02 16:04] VITALS: PULSE 98; O2SAT 94
== END 2020-09-02 16:49 | disposition home or self-care (01) ==
PROVIDERS: Emergency Provider Emergency Medicine
DX: J45.41 Moderate persistent asthma with (acute) exacerbation (principal); F17.200 Nicotine dependence, unspecified, uncomplicated; Z20.822 Contact with and (suspected) exposure to COVID-19
CPT/HCPCS: 36415; 71046; 80053; 85025; 87635; 94640; 94644; 96365; 96366; 96375; 99284; 99291; J2930; J3475

== ENCOUNTER 2020-10-15 10:47 | Emergency (ER) | payer MEDICAID, SELFPAY ==
--- NOTE | ~2020-10-15 | XR_ITS ---
EXAMINATION: XR CHEST CLINICAL INFORMATION: Dyspnea. COMPARISON: None TECHNIQUE: Frontal view of the chest was obtained. FINDINGS: The lungs are hyperinflated without acute pneumonic process. There is increased reticular interstitial changes in both lower lobes. The heart size and vascularity appears normal. There is no pleural effusion. No gross bony abnormality seen. XR/XR chest 1V IMPRESSION: Slight increased bilateral interstitial/vascular markings in both lower lobes question interstitial edema or congestion. Hyperinflated lungs with no acute pneumonic consolidation.
[2020-10-15 10:53] VITALS: BP 182/79; PULSE 85; RESP 22; O2SAT 92; BMI 23.3
--- NOTE | 2020-10-15 10:55 | ED_ITS ---
HPI - Asthma General Chief Complaint: Dyspnea Stated Complaint: asthma Time Seen by Provider: 10/15/20 10:54 Source: patient and old records reviewed Mode of arrival: ambulatory Limitations: no limitations History of Present Illness MD complaint: asthma attack , shortness of breath and wheezing Onset (ago): day(s) (3) Severity: moderate Context: other (possible crack cocaine use) Associated symptoms: productive cough Asthma History: history of frequent attacks Related Data Home Medications Medication Instructions Recorded Confirmed albuterol sulfate 90 mcg/actuation 2 puff INHALATION Q4H PRN 08/19/20 08/19/20 aerosol inhaler (Ventolin HFA) Previous Rx's Medication Instructions Recorded azithromycin 500 mg tablet 500 mg PO Q24H #3 tab 08/23/20 fluticasone 55 mcg-salmeterol 1 inh INHALATION BID #1 ea 08/23/20 14mcg/actuation breath act,powder sensor (AirDuo Digihaler) prednisone 20 mg tablet 40 mg PO DAILY #6 tab 08/23/20 doxycycline hyclate 100 mg capsule 100 mg PO BID 7 Days #14 cap 10/15/20 prednisone 20 mg tablet 40 mg PO DAILY 5 Days #10 tab 10/15/20 Allergies Allergy/AdvReac Type Severity Reaction Status Date / Time No Known Allergies Allergy Verified 08/19/20 03:56 Review of Systems Review of Systems: Constitutional : No Fever, No Chills ENT/Mouth : No Hoarseness, No sore throat, No Rhinorrhea Eyes: No Redness, No Discharge, No Vision Changes Cardiovascular : No Chest Pain, positive SOB, positive Dyspnea on Exertion, No Edema Respiratory : positive Cough, pos Sputum, positive Wheezing, Gastrointestinal : No Nausea, No Vomiting, No Diarrhea, No abdominal Pain Genitourinary : No Dysuria, No Hematuria Musculoskeletal : No joint pain, No Myalgias Skin : No rash Neuro : No Weakness, No Numbness, No Headache Psych : No anxiety, depression Heme/Lymph: No Bruising, No Bleeding Endocrine : No Polyuria, No Polydipsia All other systems reviewed and are negative PMFSH Past Medical History Attestation statement: The following information was validated with the patient. Medical History Asthma HCV (hepatitis C virus) Social History Social History Household Members: None Housing: Apartment Do you presently have visiting nurse or other home services: No Alcohol intake: current Alcohol intake frequency: 3 or more drinks per day Alcohol type: hard liquor Patient Tobacco Use Status: Never used Tobacco Substance Use Type: Crack/Cocaine Advance Directives: No Advance Directives Information Provided: No service: No Current occupational status: unemployed Physical Exam Vital Signs: Vital Signs: Last Vital Signs Pulse 76 10/15/20 11:23 Resp 22 H 10/15/20 10:53 BP 182/79 H 10/15/20 10:53 Pulse Ox 92 10/15/20 10:53 Body Mass Index 23.3 Appearance: Alert. Oriented X3. Mild acute distress. Eyes: Pupils equal, round and reactive to light. ENT: Pharynx normal. Neck: Normal inspection. Neck supple. CVS: Normal heart rate and rhythm. Pulses normal. Respiratory: mild respiratory distress tachypnea and retractions. Breath sounds diffuse insp and exp wheezes noted Abdomen: Soft and nontender. Skin: Skin warm and dry. Normal skin color. Normal skin turgor. Extremities: No lower extremity edema. No calf ttp Neuro: Oriented X 3. No motor deficit. No sensory deficit. Course Course Course Narrative: patient states he feels much better and wants to go home now. MDM - Asthma MDM Narrative Medical decision making narrative: 60 yo male hx of asthma has had wheezing x 3 days uses crack cocaine - at this time he is not vaccinated, will need hour long 10mg neb, IV steroids, IV magnesium, CXR, labs, COVID swab, dispo per results and findings. Lab Data Result diagrams: 10/15/20 11:33 10/15/20 11:33 Labs: Lab Results 10/15/20 10/15/20 10/15/20 Range/Units 11:33 11:33 11:33 WBC 4.0 L (4.8-10.8) X10*3/uL RBC 5.01 (4.60-5.80) X10*6/uL Hgb 16.1 (14.0-18.0) g/dl Hct 47.2 (42-52) % MCV 94.2 (80-98) fL MCH 32.1 (27.0-33.0) pg MCHC 34.1 (31.0-36.0) g/dl RDW 13.2 (11.0-16.0) % Plt Count 227 (160-400) X10*3/uL MPV 9.5 (9.4-12.4) fL Immature Gran % (Auto) 0.2 (0.0-0.4) % Neut % (Auto) 45.1 (45-73) % Lymph % (Auto) 32.1 (20-40) % [place] % (Auto) 14.9 H (2-11) % Eos % (Auto) 7.2 H (0-4) % Baso % (Auto) 0.5 (0-2) % Lymph # (Auto) 1.3 (1.2-4.9) X10*3/uL [place] # (Auto) 0.6 (0.1-1.2) X10*3/uL Eos # (Auto) 0.3 (0.0-0.4) X10*3/uL Baso # (Auto) 0.0 (0.0-0.2) X10*3/uL Abs Immat Gran (auto) 0.01 (0.00-0.03) X10*3/uL Absolute Neuts (auto) 1.8 L (2.0-8.3) X10*3/uL Absolute Nucleated RBC 0.000 (0.0-0.012) X10*3/uL Nucleated RBC % (auto) 0.0 (0.0-0.2) /100WBC Sodium 143 (135-145) mmol/L Potassium 4.4 (3.3-5.1) mmol/L Chloride 107 (96-108) mmol/L Carbon Dioxide 28 (22-29) mmol/L Anion Gap 12 (12-20) BUN 23 H (9-16) mg/dL Creatinine 1.34 (0.5-1.4) mg/dL Estim Creat Clear Calc 50.3 Estimated GFR 54 Random Glucose 89 (60-115) mg/dL Calcium 9.0 (8.4-10.2) mg/dL Magnesium 2.4 (1.6-2.6) mg/dL Total Bilirubin 1.0 (0.0-1.0) mg/dL Direct Bilirubin 0.4 (0.0-0.5) mg/dL AST 60 H (5-37) U/L ALT 37 (0-40) U/L Alkaline Phosphatase 61 (39-117) U/L Total Protein 7.1 (6.5-8.0) g/dL Albumin 4.1 (3.5-5.0) g/dL COVID-19 ([facility]) Negative (Negative) COVID-19 Clin Com See Note ECG Data Attestation: I personally reviewed and interpreted this ECG as follows: ECG interpretation date: 10/15/20 ECG interpretation time: 11:37 Interpretation: Rate: 69 Rhythm: NSR [place]: left LVH Normal P waves. Normal JUANITO. Normal QRS complex. poor r wave progression ST T wave : no DAYANNA qTC: normal prior studies: no change from prior The study has been interpreted contemporaneously by me. . Discharge Plan Discharge Clinical Impression: Asthma with exacerbation Qualifiers: Asthma severity: moderate Asthma persistence: persistent Qualified Code(s): J45.41 - Moderate persistent asthma with (acute) exacerbation Patient Disposition: Home, Self-Care Instructions: Asthma (ED) Additional Instructions: return to ED for any worsening symptoms or concerns Prescriptions: New doxycycline hyclate 100 mg capsule 100 mg PO BID 7 Days Qty: 14 RF: 0 prednisone 20 mg tablet 40 mg PO DAILY 5 Days Qty: 10 RF: 0 No Action albuterol sulfate [Ventolin HFA] 90 mcg/actuation HFA aerosol inhaler 2 puff inhalation Q4H PRN (Reason: wheezing) RF: 0 azithromycin 500 mg Tablet 500 mg PO Q24H Qty: 3 RF: 0 prednisone 20 mg tablet 40 mg PO DAILY Qty: 6 RF: 0 AirDuo Digihaler 55-14 mcg/actuation aero powdr breath act w/sensor 1 inh inhalation BID Qty: 1 RF: 2 Print Language: [place] Islander
--- NOTE | 2020-10-15 10:57 | ECG_ITS ---
Test Reason : SOB Blood Pressure : / mmHG Vent. Rate : 069 BPM Atrial Rate : 069 BPM P-R Int : 132 ms QRS Dur : 084 ms QT Int : 420 ms P-R-T Axes : 098 -58 -08 degrees QTc Int : 450 ms Normal sinus rhythm Left anterior fascicular block Septal infarct (cited on or before 19-AUG-2020) Abnormal ECG When compared with ECG of 19-AUG-2020 05:53, Questionable change in initial forces of Septal leads Inverted T waves have replaced nonspecific T wave abnormality in Inferior leads Nonspecific T wave abnormality no longer evident in Lateral leads Referred By: Elvie Cervantes Electronically Signed By:RADHA THOMAS
[2020-10-15] MEDS: Albuterol Sulfate (0.083%) 2.5 MG/3 ML VIAL.NEB 10 MG INHALE (11:22)
[2020-10-15 11:23] VITALS: PULSE 76; O2SAT 94
[2020-10-15 11:39] LABS: MANUAL DIFF FLAG NO
[2020-10-15 11:41] LABS: Basophils Percent Auto 0.5 % (0-2); Eosinophils Absolute Auto 0.3 X10*3/uL (0.0-0.4); Eosinophils Percent Auto 7.2 % (0-4); Hematocrit 47.2 % (42-52); Hemoglobin 16.1 g/dl (14.0-18.0); Imm Gran Abs Auto 0.01 X10*3/uL (0.00-0.03); Imm Gran Pct Auto 0.2 % (0.0-0.4); Lymphocytes Absolute Auto 1.3 X10*3/uL (1.2-4.9); Lymphocytes Percent Auto 32.1 % (20-40); Mean Corpuscular HGB Conc 34.1 g/dl (31.0-36.0); Mean Corpuscular Hemoglobin 32.1 pg (27.0-33.0); Mean Corpuscular Volume 94.2 fL (80-98); Mean Platelet Volume 9.5 fL (9.4-12.4); Monocytes Absolute Auto 0.6 X10*3/uL (0.1-1.2); Monocytes Percent Auto 14.9 % (2-11); Neutrophils Absolute Auto 1.8 X10*3/uL (2.0-8.3); Neutrophils Percent Auto 45.1 % (45-73); Platelet Count 227 X10*3/uL (160-400); Red Blood Count 5.01 X10*6/uL (4.60-5.80); Red Cell Distribution Width 13.2 % (11.0-16.0)
[2020-10-15] MEDS: methylPREDNISolone Sod Succ 125 MG/2 ML VIAL IVPUSH (11:45)
[2020-10-15] MEDS: Magnesium Sulfate/H2O 2 GM/50 ML PIGGYBACK IV (11:45)
[2020-10-15 12:01] LABS: COVID-19 Test Negative (Negative); IDNOW Serial# 9DD0AD1C
[2020-10-15 12:02] LABS: Alanine Aminotransferase 37 U/L (0-40); Albumin Level 4.1 g/dL (3.5-5.0); Alkaline Phosphatase 61 U/L (39-117); Anion Gap 12 (12-20); Aspartate Amino Transferase 60 U/L (5-37); Bilirubin Direct 0.4 mg/dL (0.0-0.5); Blood Urea Nitrogen 23 mg/dL (9-16); Carbon Dioxide 28 mmol/L (22-29); Chloride 107 mmol/L (96-108); Creatinine Clr Calc Pharmacy 50.3; Estimated Glomerular Filt Rate 54; Glucose Random 89 mg/dL (60-115); Magnesium 2.4 mg/dL (1.6-2.6); Potassium 4.4 mmol/L (3.3-5.1); Sodium 143 mmol/L (135-145); Total Protein 7.1 g/dL (6.5-8.0)
[2020-10-15 13:59] VITALS: BP 142/68; PULSE 80; RESP 20; O2SAT 97
== END 2020-10-15 14:16 | disposition home or self-care (01) ==
PROVIDERS: Emergency Provider Emergency Medicine
DX: J45.41 Moderate persistent asthma with (acute) exacerbation (principal); R06.00 Dyspnea, unspecified; F14.90 Cocaine use, unspecified, uncomplicated; Z20.822 Contact with and (suspected) exposure to COVID-19; Z79.899 Other long term (current) drug therapy
CPT/HCPCS: 36415; 71045; 80048; 80076; 83735; 85025; 87635; 93005; 94640; 94644; 96365; 96375; 99283; 99284; J2930; J3475

== ENCOUNTER 2020-11-08 09:48 | Emergency (ER) | payer MEDICAID, SELFPAY ==
--- NOTE | ~2020-11-08 | XR_ITS ---
EXAMINATION: XR CHEST CLINICAL INFORMATION: Dyspnea. COMPARISON: Chest 09/02/2020 TECHNIQUE: Frontal view of the chest was obtained. FINDINGS: The lungs are well-expanded with with slight patchy increased interstitial markings throughout both lungs similar to previous study. No focal consolidation, mass or pleural effusion seen. Heart size and vascularity is normal. No gross bony abnormality seen. In XR/XR chest 1V IMPRESSION: Prominent patchy increased interstitial markings throughout both lungs are stable. No acute consolidation seen.
[2020-11-08 09:54] VITALS: BP 141/88; PULSE 98; RESP 18; TEMP 36.4; O2SAT 95; BMI 23.3
--- NOTE | 2020-11-08 10:52 | ED.ASTHMA ---
HPI - Asthma General Chief Complaint: Dyspnea Stated Complaint: SOB Time Seen by Provider: 11/08/20 10:51 Source: patient and old records reviewed Mode of arrival: ambulatory Limitations: no limitations History of Present Illness MD complaint: asthma attack , shortness of breath and wheezing Onset (ago): day(s) (2) Severity: moderate and similar to prior Context: ran out of meds Associated symptoms: dry cough Asthma History: childhood onset Related Data Previous Rx's Medication Instructions Recorded albuterol sulfate 90 mcg/actuation 2 inh INHALATION Q4-6H PRN #1 ea 01/24/20 breath activated powder inhaler levofloxacin 750 mg tablet 750 mg PO DAILY 4 Days #4 tab 01/24/20 prednisone 20 mg tablet 40 mg PO DAILY #8 tab 01/24/20 azithromycin 250 mg tablet See Rx Instructions .ROUTE 02/14/20 (Zithromax Z-Roderick) .COMPLEX #6 tab doxycycline hyclate 100 mg tablet 100 mg PO DAILY #10 tab 02/14/20 prednisone 20 mg tablet 40 mg PO DAILY #10 tab 02/14/20 albuterol sulfate 90 mcg/actuation 2 puff INHALATION QID PRN #8.5 g 08/11/20 aerosol inhaler azithromycin 250 mg tablet See Rx Instructions .ROUTE 08/11/20 .COMPLEX #6 tab benzonatate 100 mg capsule 100 mg PO TID PRN #15 cap 08/11/20 (Tessalon Tj) prednisone 20 mg tablet 40 mg PO DAILY #10 tab 08/11/20 doxycycline hyclate 100 mg capsule 100 mg PO BID 7 Days #14 cap 09/02/20 ondansetron 4 mg disintegrating 4 mg PO Q8H PRN #20 tab 09/02/20 tablet prednisone 20 mg tablet 60 mg PO DAILY 5 Days #15 tab 09/02/20 albuterol sulfate 90 mcg/actuation 2 puff INHALATION QID PRN #6.7 g 11/08/20 aerosol inhaler prednisone 20 mg tablet 40 mg PO DAILY 5 Days #10 tab 11/08/20 Allergies Allergy/AdvReac Type Severity Reaction Status Date / Time crab Allergy Severe SWELLING/RA Verified 08/11/20 10:33 SH Review of Systems Review of Systems: Constitutional : No Fever, No Chills ENT/Mouth : No Hoarseness, No sore throat, No Rhinorrhea Eyes: No Redness, No Discharge, No Vision Changes Cardiovascular : No Chest Pain, positive SOB, positive Dyspnea on Exertion, No Edema Respiratory : positive Cough, No Sputum, positive Wheezing, Gastrointestinal : No Nausea, No Vomiting, No Diarrhea, No abdominal Pain Genitourinary : No Dysuria, No Hematuria Musculoskeletal : No joint pain, No Myalgias Skin : No rash Neuro : No Weakness, No Numbness, No Headache Psych : No anxiety, depression Heme/Lymph: No Bruising, No Bleeding Endocrine : No Polyuria, No Polydipsia All other systems reviewed and are negative [facility] Past Medical History Attestation statement: The following information was validated with the patient. Medical History Alcohol abuse Asthma Social History Social History Alcohol intake: current Alcohol intake frequency: 3 or more drinks per day Alcohol type: hard liquor Patient Tobacco Use Status: Never used Tobacco Substance Use Type: Crack/Cocaine Advance Directives: Yes Advance Directives on File: Yes Advance Directives Date on File: 01/24/20 Physical Exam Vital Signs: Vital Signs: Last Vital Signs Temp 98.4 F 11/08/20 12:00 Pulse 93 11/08/20 11:58 Resp 18 11/08/20 12:00 BP 170/84 H 11/08/20 12:00 Pulse Ox 98 11/08/20 12:00 Body Mass Index 23.3 Appearance: Alert. Oriented X3. No acute distress. Eyes: Pupils equal, round and reactive to light. ENT: Pharynx normal. Neck: Normal inspection. Neck supple. CVS: Normal heart rate and rhythm. Pulses normal. Respiratory: No respiratory distress. Breath sounds diffuse insp and exp wheezes Abdomen: Soft and nontender. Skin: Skin warm and dry. Normal skin color. Normal skin turgor. Extremities: No lower extremity edema. No calf ttp Neuro: Oriented X 3. No motor deficit. No sensory deficit. Course Course Course Narrative: feels much better wants to go home, always declines admission given INH in hand MDM - Asthma MDM Narrative Medical decision making narrative: 60 yo male well known to us comes in frequently for asthma has been having an exacerbation for 2 days, does not have an INH. He does not fill his Rx at times and comes to ED for control. At this time labs, CXR, hour long 10mg neb, IV steroids and IV magnesium. Dispo per results and improvement Lab Data Result diagrams: 11/08/20 11:10 11/08/20 11:10 Labs: Lab Results 11/08/20 11/08/20 11/08/20 Range/Units 11:08 11:10 11:10 WBC 5.4 (4.8-10.8) X10*3/uL RBC 4.97 (4.60-5.80) X10*6/uL Hgb 15.9 (14.0-18.0) g/dl Hct 47.3 (42-52) % MCV 95.2 (80-98) fL MCH 32.0 (27.0-33.0) pg MCHC 33.6 (31.0-36.0) g/dl RDW 13.2 (11.0-16.0) % Plt Count 192 (160-400) X10*3/uL MPV 9.7 (9.4-12.4) fL Immature Gran % (Auto) 0.4 (0.0-0.4) % Neut % (Auto) 57.1 (45-73) % Lymph % (Auto) 21.2 (20-40) % Real % (Auto) 12.4 H (2-11) % Eos % (Auto) 8.5 H (0-4) % Baso % (Auto) 0.4 (0-2) % Lymph # (Auto) 1.1 L (1.2-4.9) X10*3/uL Real # (Auto) 0.7 (0.1-1.2) X10*3/uL Eos # (Auto) 0.5 H (0.0-0.4) X10*3/uL Baso # (Auto) 0.0 (0.0-0.2) X10*3/uL Abs Immat Gran (auto) 0.02 (0.00-0.03) X10*3/uL Absolute Neuts (auto) 3.1 (2.0-8.3) X10*3/uL Absolute Nucleated RBC 0.000 (0.0-0.012) X10*3/uL Nucleated RBC % (auto) 0.0 (0.0-0.2) /100WBC Sodium 141 (135-145) mmol/L Potassium 4.3 (3.3-5.1) mmol/L Chloride 104 (96-108) mmol/L Carbon Dioxide 29 (22-29) mmol/L Anion Gap 12 (12-20) BUN 11 (9-16) mg/dL Creatinine 1.00 (0.5-1.4) mg/dL Estim Creat Clear Calc 67.4 Estimated GFR > 60 Random Glucose 96 (60-115) mg/dL Calcium 9.3 (8.4-10.2) mg/dL COVID-19 ([facility]) Negative (Negative) COVID-19 Clin Com See Note Discharge Plan Discharge Clinical Impression: Asthma with exacerbation Qualifiers: Asthma severity: moderate Asthma persistence: persistent Qualified Code(s): J45.41 - Moderate persistent asthma with (acute) exacerbation Patient Disposition: Home, Self-Care Instructions: Asthma (ED) Additional Instructions: return to ED for any worsening symptoms or concerns Prescriptions: New prednisone 20 mg tablet 40 mg PO DAILY 5 Days Qty: 10 RF: 0 albuterol sulfate 90 mcg/actuation HFA aerosol inhaler 2 puff inhalation QID PRN (Reason: shortness of breath or wheezing) Qty: 6.7 RF: 0 No Action doxycycline hyclate 100 mg capsule 100 mg PO BID 7 Days Qty: 14 RF: 0 prednisone 20 mg tablet 60 mg PO DAILY 5 Days Qty: 15 RF: 0 ondansetron 4 mg tablet,disintegrating 4 mg PO Q8H PRN (Reason: nausea and vomiting) Qty: 20 RF: 0 prednisone 20 mg tablet 40 mg PO DAILY Qty: 8 RF: 0 albuterol sulfate 90 mcg/actuation aerosol powdr breath activated 2 inh inhalation Q4-6H PRN (Reason: shortness of breath or wheezing) Qty: 1 RF: 0 levofloxacin 750 mg tablet 750 mg PO DAILY 4 Days Qty: 4 RF: 0 azithromycin [Zithromax Z-Roderick] 250 mg tablet See Rx Instructions .ROUTE .COMPLEX Qty: 6 RF: 0 prednisone 20 mg tablet 40 mg PO DAILY Qty: 10 RF: 0 doxycycline hyclate 100 mg tablet 100 mg PO DAILY Qty: 10 RF: 0 albuterol sulfate 90 mcg/actuation HFA aerosol inhaler 2 puff inhalation QID PRN (Reason: asthma) Qty: 8.5 RF: 0 prednisone 20 mg tablet 40 mg PO DAILY Qty: 10 RF: 0 azithromycin 250 mg tablet See Rx Instructions .ROUTE .COMPLEX Qty: 6 RF: 0 benzonatate [Tessalon Perles] 100 mg capsule 100 mg PO TID PRN (Reason: pain) Qty: 15 RF: 0 Referrals: [place],[facility] [Primary Care Provider] - 2 days Print Language: [place] Citizen
[2020-11-08 11:14] LABS: MANUAL DIFF FLAG NO
[2020-11-08 11:18] LABS: Basophils Percent Auto 0.4 % (0-2); Eosinophils Absolute Auto 0.5 X10*3/uL (0.0-0.4); Eosinophils Percent Auto 8.5 % (0-4); Hematocrit 47.3 % (42-52); Hemoglobin 15.9 g/dl (14.0-18.0); Imm Gran Abs Auto 0.02 X10*3/uL (0.00-0.03); Imm Gran Pct Auto 0.4 % (0.0-0.4); Lymphocytes Absolute Auto 1.1 X10*3/uL (1.2-4.9); Lymphocytes Percent Auto 21.2 % (20-40); Mean Corpuscular HGB Conc 33.6 g/dl (31.0-36.0); Mean Corpuscular Volume 95.2 fL (80-98); Mean Platelet Volume 9.7 fL (9.4-12.4); Monocytes Absolute Auto 0.7 X10*3/uL (0.1-1.2); Monocytes Percent Auto 12.4 % (2-11); Neutrophils Absolute Auto 3.1 X10*3/uL (2.0-8.3); Neutrophils Percent Auto 57.1 % (45-73); Platelet Count 192 X10*3/uL (160-400); Red Blood Count 4.97 X10*6/uL (4.60-5.80); Red Cell Distribution Width 13.2 % (11.0-16.0); White Blood Count 5.4 X10*3/uL (4.8-10.8)
[2020-11-08 11:30] LABS: COVID-19 Test Negative (Negative)
[2020-11-08] MEDS: Magnesium Sulfate/H2O 2 GM/50 ML PIGGYBACK IV (11:30)
[2020-11-08] MEDS: methylPREDNISolone Sod Succ 125 MG/2 ML VIAL IVPUSH (11:30)
--- NOTE | 2020-11-08 11:40 | PC.NURSE ---
CALLED RT FOR TREATMENT COVID IS NEGITIVE.
[2020-11-08 11:47] LABS: Anion Gap 12 (12-20); Blood Urea Nitrogen 11 mg/dL (9-16); Calcium 9.3 mg/dL (8.4-10.2); Carbon Dioxide 29 mmol/L (22-29); Chloride 104 mmol/L (96-108); Creatinine Clr Calc Pharmacy 67.4; Estimated Glomerular Filt Rate > 60; Glucose Random 96 mg/dL (60-115); Potassium 4.3 mmol/L (3.3-5.1); Sodium 141 mmol/L (135-145)
[2020-11-08] MEDS: Albuterol Sulfate (0.083%) 2.5 MG/3 ML VIAL.NEB 10 MG INHALE (11:56)
[2020-11-08 11:58] VITALS: PULSE 93; O2SAT 94
[2020-11-08 12:00] VITALS: BP 170/84; RESP 18; TEMP 36.9; O2SAT 98
[2020-11-08] MEDS: Albuterol Sulfate 90 MCG 8 GM INHALER 2 PUFF INHALE (12:25)
== END 2020-11-08 13:17 | disposition home or self-care (01) ==
PROVIDERS: Emergency Provider Emergency Medicine
DX: J45.41 Moderate persistent asthma with (acute) exacerbation (principal); R06.02 Shortness of breath; F14.90 Cocaine use, unspecified, uncomplicated; Z20.822 Contact with and (suspected) exposure to COVID-19; Z79.899 Other long term (current) drug therapy
CPT/HCPCS: 36415; 71045; 80048; 85025; 87635; 94640; 94644; 96365; 96366; 96375; 99283; 99284; J2930; J3475

== ENCOUNTER 2020-12-11 08:09 | Inpatient (IN) | payer MEDICAID, SELFPAY ==
[2020-12-11] VITALS (12 sets, daily range): BP systolic 134–162; BP diastolic 68–97; PULSE 62–100; RESP 16–20; TEMP 36.3–37.2; O2SAT 90–97; BMI 23.4
--- NOTE | ~2020-12-11 | XR_ITS ---
EXAMINATION: XR CHEST CLINICAL INFORMATION: Dyspnea. COMPARISON: 11/08/2020 chest radiographs. TECHNIQUE: Frontal view of the chest was obtained. FINDINGS: No significant abnormality is noted involving the heart, lungs, mediastinum, bony thorax or soft tissues. XR/XR chest 1V IMPRESSION: No acute cardiopulmonary process.
--- NOTE | 2020-12-11 08:34 | ED.ASTHMA ---
HPI - Asthma General Chief Complaint: Asthma Stated Complaint: DIFF BREATHING X'S 3 DAYS, HX OF ASTHMAA Time Seen by Provider: 12/11/20 08:23 Source: patient and EMS Mode of arrival: ambulatory Limitations: no limitations History of Present Illness HPI Narrative: 60-year-old male frequently presents to emergency department with COPD exacerbation. Patient states he ran out of his inhaler 3 days ago. He denies any falls or injuries he denies fever chills nausea vomiting or diarrhea patient is not immunized for COVID. Patient presented similarly 1 month ago frequent runs out of his inhaler and is up in the emergency department. He was on prednisone approximately 3 weeks ago. complaint: asthma attack , shortness of breath and wheezing Related Data Home Medications Medication Instructions Recorded Confirmed No Known Home Meds 12/11/20 12/11/20 Allergies Allergy/AdvReac Type Severity Reaction Status Date / Time crab Allergy Severe SWELLING/RA Verified 08/11/20 10:33 SH Review of Systems Review of Systems: Review of systems: General: Patient denies any fever chills recent illness or falls Musculoskeletal: Denies back pain or body aches or other injuries HEENT: denies headache, runny nose, ear pain Respiratory: Shortness of breath cough wheezing Cardiovascular: no chest pain or palpitations : denies dysuria, frequency Abdomen: no nausea vomiting denies abdominal pain Extremities: no swelling, no pain Skin: no diaphoresis Yes all other systems are reviewed and are negative [facility] Past Medical History Medical History (Updated 12/11/20 @ 13:35 by Evan Qureshi DO) Alcohol abuse Asthma Surgical History (Updated 12/11/20 @ 11:16 by Tyron Russo MD) No pertinent past surgical history Social History Social History (Updated 12/11/20 @ 11:16 by Tyron Russo MD) Alcohol intake: current Alcohol intake frequency: 3 or more drinks per day Alcohol type: hard liquor Patient Tobacco Use Status: Never used Tobacco Use of substances other than those prescribed or required for medical reasons: No Substance Use Type: Crack/Cocaine Advance Directives: Yes Advance Directives on File: Yes Advance Directives Date on File: 01/24/20 Physical Exam Vital Signs: Vital Signs: Last Vital Signs Temp 98.1 F 12/11/20 08:27 Pulse 88 12/11/20 12:44 Resp 16 12/11/20 11:27 BP 137/68 10/18/21 11:27 Pulse Ox 94 12/11/20 11:27 Body Mass Index 23.4 MDM - Asthma MDM Narrative Medical decision making narrative: Concern for acute COPD exacerbation start the patient on 10 of albuterol as well as IV steroids magnesium. I watched the patient here for the next hours to see if he improves. Patient with minimal improvement after 10 of albuterol and Solu-Medrol and magnesium IV. Patient does not feel comfortable going home at this point think the patient benefit from short-term admission. I did discuss the case with the hospitalists. Lab Data Result diagrams: 12/11/20 08:46 12/11/20 08:46 Labs: Lab Results 12/11/20 12/11/20 12/11/20 Range/Units 08:46 08:46 08:46 WBC 6.3 (4.8-10.8) X10*3/uL RBC 4.98 (4.60-5.80) X10*6/uL Hgb 16.0 (14.0-18.0) g/dl Hct 46.1 (42-52) % MCV 92.6 (80-98) fL MCH 32.1 (27.0-33.0) pg MCHC 34.7 (31.0-36.0) g/dl RDW 12.6 (11.0-16.0) % Plt Count 251 D (160-400) X10*3/uL MPV 9.3 L (9.4-12.4) fL Immature Gran % (Auto) 0.3 (0.0-0.4) % Neut % (Auto) 50.3 (45-73) % Lymph % (Auto) 26.2 (20-40) % [place] % (Auto) 12.9 H (2-11) % Eos % (Auto) 9.8 H (0-4) % Baso % (Auto) 0.5 (0-2) % Lymph # (Auto) 1.7 (1.2-4.9) X10*3/uL [place] # (Auto) 0.8 (0.1-1.2) X10*3/uL Eos # (Auto) 0.6 H (0.0-0.4) X10*3/uL Baso # (Auto) 0.0 (0.0-0.2) X10*3/uL Abs Immat Gran (auto) 0.02 (0.00-0.03) X10*3/uL Absolute Neuts (auto) 3.2 (2.0-8.3) X10*3/uL Absolute Nucleated RBC 0.000 (0.0-0.012) X10*3/uL Nucleated RBC % (auto) 0.0 (0.0-0.2) /100WBC Sodium 139 (135-145) mmol/L Potassium 4.4 (3.3-5.1) mmol/L Chloride 102 (96-108) mmol/L Carbon Dioxide 28 (22-29) mmol/L Anion Gap 13 (12-20) BUN 11 (9-16) mg/dL Creatinine 1.23 (0.5-1.4) mg/dL Estim Creat Clear Calc 54.8 Estimated GFR 60 Random Glucose 101 (60-115) mg/dL Calcium 9.3 (8.4-10.2) mg/dL Total Bilirubin 0.6 (0.0-1.0) mg/dL Direct Bilirubin 0.3 (0.0-0.5) mg/dL AST 51 H (5-37) U/L ALT 35 (0-40) U/L Alkaline Phosphatase 69 (39-117) U/L Total Protein 7.3 (6.5-8.0) g/dL Albumin 4.2 (3.5-5.0) g/dL Lipase 47 (8-78) U/L Ethyl Alcohol mg/dL Coronavirus (PCR) NEGATIVE (Negative) Influenza Type A (PCR) NEGATIVE (Negative) Influenza Type B (PCR) NEGATIVE (Negative) RSV RNA Qual (PCR) NEGATIVE (Negative) 12/11/20 Range/Units 08:46 WBC (4.8-10.8) X10*3/uL RBC (4.60-5.80) X10*6/uL Hgb (14.0-18.0) g/dl Hct (42-52) % MCV (80-98) fL MCH (27.0-33.0) pg MCHC (31.0-36.0) g/dl RDW (11.0-16.0) % Plt Count (160-400) X10*3/uL MPV (9.4-12.4) fL Immature Gran % (Auto) (0.0-0.4) % Neut % (Auto) (45-73) % Lymph % (Auto) (20-40) % [place] % (Auto) (2-11) % Eos % (Auto) (0-4) % Baso % (Auto) (0-2) % Lymph # (Auto) (1.2-4.9) X10*3/uL [place] # (Auto) (0.1-1.2) X10*3/uL Eos # (Auto) (0.0-0.4) X10*3/uL Baso # (Auto) (0.0-0.2) X10*3/uL Abs Immat Gran (auto) (0.00-0.03) X10*3/uL Absolute Neuts (auto) (2.0-8.3) X10*3/uL Absolute Nucleated RBC (0.0-0.012) X10*3/uL Nucleated RBC % (auto) (0.0-0.2) /100WBC Sodium (135-145) mmol/L Potassium (3.3-5.1) mmol/L Chloride (96-108) mmol/L Carbon Dioxide (22-29) mmol/L Anion Gap (12-20) BUN (9-16) mg/dL Creatinine (0.5-1.4) mg/dL Estim Creat Clear Calc Estimated GFR Random Glucose (60-115) mg/dL Calcium (8.4-10.2) mg/dL Total Bilirubin (0.0-1.0) mg/dL Direct Bilirubin (0.0-0.5) mg/dL AST (5-37) U/L ALT (0-40) U/L Alkaline Phosphatase (39-117) U/L Total Protein (6.5-8.0) g/dL Albumin (3.5-5.0) g/dL Lipase (8-78) U/L Ethyl Alcohol < 10 mg/dL Coronavirus (PCR) (Negative) Influenza Type A (PCR) (Negative) Influenza Type B (PCR) (Negative) RSV RNA Qual (PCR) (Negative) ECG Data Attestation: I personally reviewed and interpreted this ECG as follows: Prior ECG tracings: available for review Interpretation: Rate 93 nsr normal intervals no signs of ischemia Discharge Plan Discharge Clinical Impression: Chronic obstructive asthma with exacerbation Patient Disposition: Admitted As Inpatient
[2020-12-11] MEDS: Albuterol Sulfate (0.083%) 2.5 MG/3 ML VIAL.NEB 10 MG INHALE (08:37)
--- NOTE | 2020-12-11 08:37 | ECG_ITS ---
Test Reason : Dyspnea Blood Pressure : / mmHG Vent. Rate : 093 BPM Atrial Rate : 093 BPM P-R Int : 154 ms QRS Dur : 078 ms QT Int : 370 ms P-R-T Axes : 079 -66 028 degrees QTc Int : 460 ms Normal sinus rhythm Biatrial enlargement Left anterior fascicular block Cannot rule out Anteroseptal infarct , age undetermined Abnormal ECG No significant changes seen Referred By: Evan Qureshi Electronically Signed By:YOHANA SÁNCHEZ MD
[2020-12-11 08:55] LABS: MANUAL DIFF FLAG NO
[2020-12-11] MEDS: 0.9 % Sodium Chloride 500 ML 999 ML IV (08:57)
[2020-12-11] MEDS: methylPREDNISolone Sod Succ 125 MG/2 ML VIAL IVPUSH (08:58)
[2020-12-11] MEDS: Magnesium Sulfate/H2O 2 GM/50 ML PIGGYBACK IV (08:58)
[2020-12-11 09:00] LABS: Basophils Percent Auto 0.5 % (0-2); Eosinophils Absolute Auto 0.6 X10*3/uL (0.0-0.4); Eosinophils Percent Auto 9.8 % (0-4); Hematocrit 46.1 % (42-52); Imm Gran Abs Auto 0.02 X10*3/uL (0.00-0.03); Imm Gran Pct Auto 0.3 % (0.0-0.4); Lymphocytes Absolute Auto 1.7 X10*3/uL (1.2-4.9); Lymphocytes Percent Auto 26.2 % (20-40); Mean Corpuscular HGB Conc 34.7 g/dl (31.0-36.0); Mean Corpuscular Hemoglobin 32.1 pg (27.0-33.0); Mean Corpuscular Volume 92.6 fL (80-98); Mean Platelet Volume 9.3 fL (9.4-12.4); Monocytes Absolute Auto 0.8 X10*3/uL (0.1-1.2); Monocytes Percent Auto 12.9 % (2-11); Neutrophils Absolute Auto 3.2 X10*3/uL (2.0-8.3); Neutrophils Percent Auto 50.3 % (45-73); Platelet Count 251 X10*3/uL (160-400); Red Blood Count 4.98 X10*6/uL (4.60-5.80); Red Cell Distribution Width 12.6 % (11.0-16.0); White Blood Count 6.3 X10*3/uL (4.8-10.8)
--- NOTE | 2020-12-11 09:02 | PC.NURSE ---
Pt currently on updraft, no increased work of breathing at this time. HR 95 and sat 99% on updraft at this time. Skin color flushed, warm and dry. Pt states feeling better than on arrival. IV established and medicated as charted.
[2020-12-11 09:14] LABS: Ethanol < 10 mg/dL
[2020-12-11 09:18] LABS: Alanine Aminotransferase 35 U/L (0-40); Albumin Level 4.2 g/dL (3.5-5.0); Alkaline Phosphatase 69 U/L (39-117); Anion Gap 13 (12-20); Aspartate Amino Transferase 51 U/L (5-37); Bilirubin Direct 0.3 mg/dL (0.0-0.5); Bilirubin Total 0.6 mg/dL (0.0-1.0); Blood Urea Nitrogen 11 mg/dL (9-16); Calcium 9.3 mg/dL (8.4-10.2); Carbon Dioxide 28 mmol/L (22-29); Chloride 102 mmol/L (96-108); Creatinine Clr Calc Pharmacy 54.8; Estimated Glomerular Filt Rate 60; Glucose Random 101 mg/dL (60-115); Lipase 47 U/L (8-78); Potassium 4.4 mmol/L (3.3-5.1); Sodium 139 mmol/L (135-145); Total Protein 7.3 g/dL (6.5-8.0)
[2020-12-11 09:51] LABS: Influenza A PCR NEGATIVE (Negative); Influenza B PCR NEGATIVE (Negative); Resp Syncy Virus RNA Qual PCR NEGATIVE (Negative); SARS COV2 PCR INHOUSE NEGATIVE (Negative)
--- NOTE | 2020-12-11 10:34 | PC.NURSE ---
Dr Russo at bedside for eval/admission. Room air sat 89%, placed on 2lpm via nc and sat up to 93%, s/p treatment pt remains with i/e wheezing but increased aeration heard, no diff breathing
--- NOTE | 2020-12-11 11:10 | PM.IMHP ---
History of Present Illness Date of Service: 12/11/20 Chief Complaint: Shortness of breath This is a 60 yo M with a PMH of Asthma/COPD, heavy alcohol use (reports 2-3 pints of vodka daily), prior crack/cocaine smoking (reports sober >3 months), frequent ED visits for respiratory symptoms who Presents to the hospital with complaints of progressive shortness of breath with associated productive cough of yellowish sputum for the last 3 days. He reports that he ran out of his inhalers about 1 week ago and since that his symptoms have progressively worsened. He denies any fevers or chills. He denies any known sick contacts. He reports not being immunized against COVID-19. Upon arrival to the ED, patient was noted to be in Respiratory distress with tachypnea and accessory muscle use. He was given an hour long nebulizer treatment with systemic steroids. His symptoms improved only minimally and post treatment he was noted to be persistently hypoxic in the mid 80s. He will be admitted for further treatment. Review of Systems Review of Systems: General - denies fevers or chills, denies weakness or fatigue HEENT -denies blurred vision, denies headache, denies sore throat Cardiovascular - denies chest pain or palpitations, denies edema Respiratory - positive for: Shortness of breath, wheezing, productive cough of yellow sputum Gastrointestinal - denies abdominal pain, nausea, vomiting, diarrhea - denies flank pain, denies dysuria, denies frequency or urgency Musculoskeletal - denies back pain, denies hip pain, denies knee pain, denies shoulder pain Neurological - denies any focal weakness or numbness Skin, denies any bruising or redness Psychiatric - denies any suicidal ideation, hallucinations, homicidal ideation Endocrinology - denies intolerance to hot / cold temperatures [facility] Medical History (Updated 12/11/20 @ 11:21 by Tyron Russo MD) Alcohol abuse Asthma Pertinent family history: Denies any significant past medical history in his family. Surgical History (Updated 12/11/20 @ 11:16 by Tyorn Russo MD) No pertinent past surgical history Social History (Updated 12/11/20 @ 11:16 by Tyron Russo MD) Alcohol intake: current Alcohol intake frequency: 3 or more drinks per day Alcohol type: hard liquor Patient Tobacco Use Status: Never used Tobacco Use of substances other than those prescribed or required for medical reasons: No Substance Use Type: Crack/Cocaine Advance Directives: Yes Advance Directives on File: Yes Advance Directives Date on File: 01/24/20 Meds Allergies Allergy/AdvReac Type Severity Reaction Status Date / Time crab Allergy Severe SWELLING/RA Verified 08/11/20 10:33 SH Active Medications: Current Medications Pharmacy Consult (Consult Rx Perform Med Rec) 1 each MISCELLANE ONCE PRN PRN Reason: Consult order Home Medications Medication Instructions Recorded Confirmed Last Taken Type No Known Home Meds 12/11/20 12/11/20 Unknown History Physical Exam Vital Signs and Narrative: Vital Signs: Last Vital Signs Temp 98.1 F 12/11/20 08:27 Pulse 95 12/11/20 10:37 Resp 20 12/11/20 10:37 BP 158/97 H 12/11/20 10:37 Pulse Ox 93 12/11/20 10:37 Body Mass Index 23.4 Const: Other: Constitutional - Awake and Alert, in mild respiratory distress with exertion; unkempt Eyes - PERRLA, EOMI Cardiovascular - S1S2, RRR, No edema Respiratory - diffuse wheezing, comfortable at rest, tachypenic with accessory muscle use with exertion; hypoxic down to mid 80s on RA Gastrointestinal - NT / ND; +BS; No rebound or guarding - No CVA tenderness Extremities - no calf tenderness bilaterally, no swelling Musculoskeletal - Normal inspection, normal ROM Skin - Warm/Dry Neurological - Alert & oriented x3, No focal deficit Psychological - Appropriate affect Results Labs CBC and Chem 7: 12/11/20 08:46 12/11/20 08:46 Labs: Laboratory Results - last 24 hr 12/11/20 12/11/20 12/11/20 08:46 08:46 08:46 MCV 92.6 MCH 32.1 MCHC 34.7 RDW 12.6 Plt Count 251 D MPV 9.3 L Immature Gran % (Auto) 0.3 Neut % (Auto) 50.3 Lymph % (Auto) 26.2 [place] % (Auto) 12.9 H Eos % (Auto) 9.8 H Baso % (Auto) 0.5 Lymph # (Auto) 1.7 [place] # (Auto) 0.8 Eos # (Auto) 0.6 H Baso # (Auto) 0.0 Abs Immat Gran (auto) 0.02 Absolute Neuts (auto) 3.2 Absolute Nucleated RBC 0.000 Nucleated RBC % (auto) 0.0 Anion Gap 13 Estim Creat Clear Calc 54.8 Estimated GFR 60 Random Glucose 101 Calcium 9.3 Total Bilirubin 0.6 Direct Bilirubin 0.3 AST 51 H ALT 35 Alkaline Phosphatase 69 Total Protein 7.3 Albumin 4.2 Lipase 47 Ethyl Alcohol Coronavirus (PCR) NEGATIVE Influenza Type A (PCR) NEGATIVE Influenza Type B (PCR) NEGATIVE RSV RNA Qual (PCR) NEGATIVE 12/11/20 08:46 MCV MCH MCHC RDW Plt Count MPV Immature Gran % (Auto) Neut % (Auto) Lymph % (Auto) [place] % (Auto) Eos % (Auto) Baso % (Auto) Lymph # (Auto) [place] # (Auto) Eos # (Auto) Baso # (Auto) Abs Immat Gran (auto) Absolute Neuts (auto) Absolute Nucleated RBC Nucleated RBC % (auto) Anion Gap Estim Creat Clear Calc Estimated GFR Random Glucose Calcium Total Bilirubin Direct Bilirubin AST ALT Alkaline Phosphatase Total Protein Albumin Lipase Ethyl Alcohol < 10 Coronavirus (PCR) Influenza Type A (PCR) Influenza Type B (PCR) RSV RNA Qual (PCR) Imaging Radiologist's Impressions: Impressions Chest X-Ray 12/11/20 08:29 IMPRESSION: No acute cardiopulmonary process. Assessment and Plan (1) Acute respiratory failure with hypoxia: Status: Acute This is a 60 yo M with a PMH of asthma who presents to the hospital with complaints of SOB, wheezing, cough (yellow sputum) for 3 days. He is found to be hypoxic with sats in the mid 80s and diffuse wheezing. He will be admitted for further treatment. 1. Acute Resp Failure with hypoxia desaturated to the mid 80s on RA, improved with 2L NC see details below 2. Asthma vs COPD excacerbation Patient reports no formal testing with PFTs On an albuterol INH prn only at home Scheduled + PRN updrafts IV solu-medrol, doxycycline (5 day course) will need formal testing as an outpatient 3. Alcohol abuse with dependence reports prior withdrawal symptoms - but denies DTs or seizures not in withdrawal currently -- reports last drank >3 days prior to arrival monitor with CIWA and start pheno if needed alcohol cessation has been advised Full Code DVT pptx, Lovenox Given his hypoxia and diffuse wheezing, I anticipate 2-3 days of hospitalization for treatment of his respiratory illness. Quality Stroke Does the patient have a stroke diagnosis?: No VTE Prior VTE?: No VTE Risk Level:: Medical - moderate - high VTE Device Contraindication: Treatment Not Indicated VTE Drug Contraindication: N/A - Med Ordered
--- NOTE | 2020-12-11 11:13 | PHA.MEDREC ---
Pharmacy Consult ? Medication Reconciliation Pharmacy has completed the medication reconciliation. Patient reports he takes no medications. Sadie Lion, JazlynD
[2020-12-11] MEDS: methylPREDNISolone Sod Succ 40 MG/ML VIAL IVPUSH (11:23)
[2020-12-11] MEDS: Enoxaparin Sodium 40 MG/0.4 ML SYRINGE SUBCUT (11:23)
[2020-12-11] MEDS: Albuterol/Iprat 2.5/0.5MG 3 ML AMPUL.NEB INHALE ×2 (12:43→20:39)
[2020-12-11] MEDS: 0.9 % Sodium Chloride Flush 3 ML SYRINGE IVFLUSH ×2 (14:57→22:16)
--- NOTE | 2020-12-11 17:02 | PC.NURSE ---
NAD at this time, offers no complaints. nsr on monitor
--- NOTE | 2020-12-11 19:46 | PC.NURSE ---
report to christina on med surg
--- NOTE | 2020-12-11 19:50 | PC.NURSE ---
patient ate 100 % ,had 360 ml liquids ,put out 800 ml urine ,color yellow
[2020-12-11 20:16] LABS: Amphetamine Screen Urine Not Detected (Not Detect); Barbiturates, Urine Not Detected (Not Detect); Benzodiazepines Screen Urine Not Detected (Not Detect); Cannabinoid Screen Urine Not Detected (Not Detect); Cocaine Screen Urine POSITIVE (Not Detect); Fentanyl, urine Not Detected (Not Detect); Opiate Screen Urine Not Detected (Not Detect); Phencyclidine Screen Urine Not Detected (Not Detect)
[2020-12-12] VITALS (8 sets, daily range): BP systolic 135–156; BP diastolic 72–84; PULSE 69–82; RESP 16–18; TEMP 36.2–36.7; O2SAT 90–98
[2020-12-12] MEDS: methylPREDNISolone Sod Succ 40 MG/ML VIAL IVPUSH ×3 (00:27→23:09)
[2020-12-12] MEDS: 0.9 % Sodium Chloride Flush 3 ML SYRINGE IVFLUSH ×3 (07:35→23:09)
--- NOTE | 2020-12-12 11:32 | HO.PM.IMPN ---
Subjective Subjective Date of Service: 12/12/20 Interval History: seen and examined this AM feeling slightly improve; still wheezing and coughing breathing a bit eaiser Review of Systems General - no fevers or chills Cardiovascular - no chest pain Respiratory - +SOB / wheezing Abdominal- no abdominal pain, nausea, vomiting, diarrhea Physical Exam Vital Signs: Vital Signs: Last Vital Signs Temp 97.9 F 12/12/20 07:30 Pulse 69 12/12/20 07:30 Resp 18 12/12/20 07:30 BP 139/81 12/12/20 07:30 Pulse Ox 98 12/12/20 07:30 Body Mass Index 23.4 Const: Other: General - no acute distress, appears comfortable Cardiovascular - regular rate and rhythm, S1-S2 Lungs - still remains on oxygen; has diffuse wheezing and tachypnea with minimal exertion Abdomen - soft, nontender, no rebound or guarding Extremities - no edema bilaterally Neuro - awake and alert, no focal deficits Objective Data Active Medications Acetaminophen (Acetaminophen 325 Mg Tablet) 650 mg PO Q6H PRN PRN Reason: Pain, Mild (Pain Scale 1-3) Albuterol/Ipratropium (Albuterol/Iprat 2.5/0.5mg 3 Ml Ampul.Neb) 3 ml INHALE RQ6H WHILE AWAKE [facility] Last Admin: 12/12/20 07:43 Dose: Not Given Documented by: SUSSY Non-Admin Reason: Patient Asleep Doxycycline Hyclate (Doxycycline Hyclate 100 Mg Tablet) 100 mg PO BID [facility] Stop: 12/15/20 21:01 Last Admin: 12/12/20 09:46 Dose: 100 mg Documented by: DIGNA Enoxaparin Sodium (Enoxaparin Sodium 40 Mg/0.4 Ml Syringe) 40 mg SUBCUT Q24H [facility] Last Admin: 12/11/20 11:23 Dose: 40 mg Documented by: JOSE CARLOS Methylprednisolone Sodium Succinate (Methylprednisolone Sod Succ 40 Mg/Ml Vial) 40 mg IVPUSH Q12H [facility] Last Admin: 12/12/20 00:27 Dose: 40 mg Documented by: MAROC Ondansetron HCl (Ondansetron Hcl 4 Mg/2 Ml Vial) 4 mg IVPUSH Q8H PRN PRN Reason: Nausea and Vomiting Pharmacy Consult (Consult Rx Perform Med Rec) 1 each MISCELLANE ONCE PRN PRN Reason: Consult order Sodium Chloride (0.9 % Sodium Chloride Flush 3 Ml Syringe) 3 ml IVFLUSH QSHIFT [facility] Last Admin: 12/12/20 07:35 Dose: 3 ml Documented by: DIGNA Labs CBC & Chem 7: 12/11/20 08:46 12/11/20 08:46 Labs: Laboratory Results - last 24 hr 12/11/20 19:48 Urine Opiates Screen Not Detected Urine Fentanyl Screen Not Detected Ur Barbiturates Screen Not Detected Ur Phencyclidine Scrn Not Detected Ur Amphetamines Screen Not Detected U Benzodiazepines Scrn Not Detected Urine Cocaine Screen POSITIVE H U Marijuana (THC) Screen Not Detected Assessment and Plan (1) Chronic obstructive asthma with exacerbation: Status: Acute (2) Acute respiratory failure with hypoxia: Status: Acute Assessment and Plan: This is a 60 yo M with a PMH of asthma who presents to the hospital with complaints of SOB, wheezing, cough (yellow sputum) for 3 days. He is found to be hypoxic with sats in the mid 80s and diffuse wheezing. He will be admitted for further treatment. 1. Acute Resp Failure with hypoxia stable on 2L wean O2 with a goal >90% on RA 2. Suspected COPD (over asthma exacerbation) still diffuse wheezing and symptomatic with minimal exertion continue IV steroids today and consider transition to oral prednisone by tomorrow continue scheduled updrafts doxycycline oral day 03/31 3. Alcohol abuse with dependence reports prior withdrawal symptoms - but denies DTs or seizures not in withdrawal currently -- reports last drank? >3 days prior to arrival monitor with CIWA and start pheno if needed alcohol cessation has been advised Full Code DVT pptx, Lovenox Slowly improving -- will need another 24 hours of treatment and then will re-evaluate readiness for discharge. Quality Stroke Does the patient have a stroke diagnosis?: No VTE Prior VTE?: No VTE Risk Level:: Medical - moderate - high VTE Device Contraindication: Treatment Not Indicated VTE Drug Contraindication: N/A - Med Ordered
--- NOTE | 2020-12-12 14:15 | MHC.CM.PN ---
EMR REVIEWED, PT ADMITTED W/SOB, CM MET W/PT VIA [employer]PERVISOR AND PT IS A&O, PT REPORTS HE LIVES ALONE IN AN APT, PT DENIES USE OF DME OR HOME SERVICES, PT VERIFIES HE HAS NO PCP AND DECLINES ASSISTANCE SETTING UP NEW PCP, PT REPORTS HE DRINKS AND MISSES HIS APPOINTMENTS ALL THE TIME, CM DISCUSSED ETOH/SA TX AND PT ALSO DECLINING AND REPORTS HE HAS TRIED EVERY PROGRAM AND NOTHING WORKS. PT DECLINES NEED FOR HOME SERVICES AT THIS TIME. D/C PLAN: HOME NO SERVICES, PT MAY NEED C SHUTTLE HOME.
[2020-12-12] MEDS: Albuterol/Iprat 2.5/0.5MG 3 ML AMPUL.NEB INHALE ×2 (14:39→19:59)
[2020-12-13 04:00] VITALS: BP 143/86; PULSE 65; RESP 18; TEMP 36.6; O2SAT 99
[2020-12-13] MEDS: 0.9 % Sodium Chloride Flush 3 ML SYRINGE IVFLUSH (07:21)
[2020-12-13 07:23] VITALS: BP 169/88; PULSE 68; RESP 19; TEMP 36.5; O2SAT 97
[2020-12-13] MEDS: Albuterol/Iprat 2.5/0.5MG 3 ML AMPUL.NEB INHALE (09:09)
[2020-12-13 09:11] VITALS: PULSE 86; O2SAT 96
--- NOTE | 2020-12-13 10:25 | P.DS_ITS ---
DS: Providers Provider Date of Service: 12/13/20 Date of admission: 12/11/20 11:06 Primary care physician: [facility] DS: Diagnosis Discharge Diagnosis (1) Acute respiratory failure with hypoxia: Status: Acute (2) Chronic obstructive asthma with exacerbation: Status: Acute DS: Summary Hospital Course Hospital Course: Patient was treated with IV Solu-Medrol, doxycycline, scheduled and p.r.n. bronchodilators, and oxygen for greater than 48 hours. He had significant improvement in his symptoms. He was able to be weaned to room air and is saturating in the mid 90s at the time of discharge. He is no longer having significant wheezing or respiratory symptoms and will be discharged home on 3 more days of doxycycline, 5 more days of prednisone. He has been prescribed E Combivent inhaler as well as p.r.n. albuterol inhaler. He has been referred to Pulmonary. He does not have a primary care doctor and has been provided a list of providers to call. Time Spent with Patient Time attestation: Total time spent providing and/or coordinating discharge services: Discharge coordination time: Greater than 30 minutes Quality: Stroke Does the patient have a stroke diagnosis?: No Physical Exam Vital Signs: Vital Signs: Last Vital Signs Temp 97.7 F 12/13/20 07:23 Pulse 86 12/13/20 09:11 Resp 19 12/13/20 07:23 BP 169/88 H 12/13/20 07:23 Pulse Ox 97 12/13/20 07:23 Body Mass Index 23.4 Const: Other: General - no acute distress, appears comfortable Cardiovascular - regular rate and rhythm, S1-S2 Lungs - normal respiratory effort, clear to auscultation bilaterally, no wheezing Abdomen - soft, nontender, no rebound or guarding Extremities - no edema bilaterally Neuro - awake and alert, no focal deficits Discharge Plan Discharge Patient Disposition: Home, Self-Care Discharge Diagnosis: COPD exacerbation Referrals: Renetta Justin MD [Physician] - 1 Month Center,[facility] [Primary Care Provider] - 1 Week Discharge Medications: New doxycycline hyclate 100 mg Tablet 100 mg PO BID Qty: 6 RF: 0 Combivent Respimat 20-100 mcg/actuation mist 1 puff inhalation QID Qty: 4 RF: 0 Proair Digihaler 90 mcg/actuation aero powdr breath act w/sensor 2 inh inhalation Q4-6H PRN (Reason: shortness of breath or wheezing) Qty: 1 RF: 0 prednisone 20 mg tablet 40 mg PO DAILY Qty: 10 RF: 0 Discharge Orders: Discharge Order (Routine); Ordered 12/13/20 Ordered By: Tyron Russo Diet: advance to usual diet Activity on Discharge: As tolerated Stand Alone Forms: Patient Portal Discharge page Care Plan Goals: To stay healthy and out of the hospital. Health Concerns: COPD Plan of Treatment: Take prednisone 40mg daily Take albuterol inhaler as needed Take Combivent inhaler 4 times a day Follow up with lung doctor Assessment: 60-year-old male admitted for COPD exacerbation. Treated with systemic steroids and bronchodilators. Will be discharged on 5 more days of prednisone and 3 more days of doxycycline. Needs to follow up with the pulmonary clinic which he has been referred to. Also needs to obtain a PCP.
== END 2020-12-13 10:56 | disposition home or self-care (01) | DRG 140 ==
LOC: HO.ED 08:22 → HO.EDOVER 11:22 → HO.S3 19:31
PROVIDERS: Admitting Provider Family Medicine; Emergency Provider Student in an Organized Health Care Education/Training Program; Visit Provider Family Medicine
DX: J44.1 Chronic obstructive pulmonary disease with (acute) exacerbation (principal); J96.01 Acute respiratory failure with hypoxia; J45.901 Unspecified asthma with (acute) exacerbation; F10.20 Alcohol dependence, uncomplicated; Z20.822 Contact with and (suspected) exposure to COVID-19; Z79.899 Other long term (current) drug therapy
CPT/HCPCS: 0241U; 36415; 71045; 80048; 80076; 80307; 82077; 83690; 85025; 93005; 94640; 94644; 96365; 96366; 96375; 99285; J1650; J2920; J2930; J3475

== ENCOUNTER 2021-01-09 16:57 | Emergency (ER) | payer MEDICAID, SELFPAY ==
--- NOTE | ~2021-01-09 | XR_ITS ---
EXAMINATION: XR CHEST CLINICAL INFORMATION: Shortness of breath. COMPARISON: 12/11/2020 TECHNIQUE: 2 views of the chest were obtained. FINDINGS: Lungs are hyperexpanded. Pleural parenchymal scarring is suspected in the lung apices. Patchy nodular opacities are present in the right lobe, measuring up to 7 mm in diameter, slightly more pronounced as compared to prior. No new airspace consolidation. No pneumothorax or pleural effusion. Cardiac and mediastinal contours are normal. No acute osseous findings. Mild degenerative spondylosis in the thoracic spine. XR/XR chest 2V IMPRESSION: Subtle patchy nodular opacities in the right upper lobe which are slightly more pronounced as compared to prior and may correspond to pleural parenchymal scarring. No acute pulmonary findings are identified. Consider follow-up CT on a nonemergent basis for further assessment is of the nodular opacities in the right upper lobe.
[2021-01-09 17:32] VITALS: BP 148/76; PULSE 96; RESP 20; TEMP 37.2; O2SAT 93; BMI 23.3
[2021-01-09 18:01] LABS: COVID-19 Test Negative (Negative)
--- NOTE | 2021-01-09 19:14 | ED_ITS ---
HPI - Asthma General Chief Complaint: Asthma Stated Complaint: diff breathing Time Seen by Provider: 01/09/21 19:14 Source: patient and old records reviewed History of Present Illness HPI Narrative: Patient with a long history of asthma with acute exacerbation resulting in hospitalization, presents with wheezing and dyspnea for the past 1 week. Positive cough without phlegm. No documented fevers. No chest pain No other causative factors other than ?maybe the weather? Worse with exertion No alleviating or exacerbating factors Related Data Home Medications Medication Instructions Recorded Confirmed albuterol sulfate 90 mcg/actuation 2 puff INHALATION Q4H PRN 08/19/20 08/19/20 aerosol inhaler (Ventolin HFA) Previous Rx's Medication Instructions Recorded azithromycin 500 mg tablet 500 mg PO Q24H #3 tab 08/23/20 fluticasone 55 mcg-salmeterol 1 inh INHALATION BID #1 ea 08/23/20 14mcg/actuation breath act,powder sensor (AirDuo Digihaler) prednisone 20 mg tablet 40 mg PO DAILY #6 tab 08/23/20 doxycycline hyclate 100 mg capsule 100 mg PO BID 7 Days #14 cap 10/15/20 prednisone 20 mg tablet 40 mg PO DAILY 5 Days #10 tab 10/15/20 albuterol sulfate 90 mcg/actuation 2 inh INHALATION Q4-6H PRN #1 ea 12/13/20 breath activated powder inhaler,sensor (Proair Digihaler) doxycycline hyclate 100 mg tablet 100 mg PO BID #6 tab 12/13/20 ipratropium 20 mcg-albuterol 100 1 puff INHALATION QID #4 g 12/13/20 mcg/actuation mist for inhalation (Combivent Respimat) prednisone 20 mg tablet 40 mg PO DAILY #10 tab 12/13/20 albuterol sulfate 0.63 mg/3 mL 0.63 mg (3 mL) INHALATION QID PRN 01/09/21 solution for nebulization #75 ml albuterol sulfate 90 mcg/actuation 2 puff INHALATION Q6H PRN #8.5 g 01/09/21 aerosol inhaler nebulizers (Aeroneb Go Nebulizer) #1 ea 01/09/21 prednisone 20 mg tablet 40 mg PO DAILY #10 tab 01/09/21 Allergies Allergy/AdvReac Type Severity Reaction Status Date / Time crab Allergy Severe SWELLING/RA Verified 01/02/21 13:59 Review of Systems Constitutional: Constitutional: Denies fever(s) Cardiovascular: Comments: No chest pain Respiratory: Comments: Dyspnea, wheezing, cough, no phlegm Gastrointestinal: Comments: No nausea vomiting or abdominal pain Musculoskeletal: Comments: No extremity pain Integumentary/Breasts: Comments: No rash PMFSH Past Medical History Medical History (Updated 01/09/21 @ 19:30 by Terrence Baker MD) Alcohol abuse Asthma Asthma HCV (hepatitis C virus) Surgical History (System 01/02/21 @ 13:59 by Laisha Tomas) No pertinent past surgical history Social History Social History (System 01/02/21 @ 13:59 by Laisha Tomas) Household Members: None Housing: Apartment Do you presently have visiting nurse or other home services: No Alcohol intake: current Alcohol intake frequency: 3 or more drinks per day Alcohol type: hard liquor Patient Tobacco Use Status: Never used Tobacco Substance Use Type: Crack/Cocaine and Marijuana Advance Directives: Yes Advance Directives on File: Yes Advance Directives Date on File: 01/24/20 service: No Current occupational status: unemployed Physical Exam Vital Signs: Vital Signs: Last Vital Signs Temp 98.7 F 01/09/21 19:45 Pulse 82 01/09/21 19:55 Resp 19 01/09/21 19:45 BP 158/101 H 01/09/21 19:45 Pulse Ox 89 L 01/09/21 19:45 Body Mass Index 23.3 Const: Other: Awake and alert. Chest: Other: Accessory muscle use Resp: Other: Inspiratory and expiratory wheezes bilaterally without rales. Increased work of breathing. Cardio: Other: Regular rate and rhythm without murmurs rubs or gallops GI: Other: Abdomen is soft nontender Skin: Other: No rash Course Course Course Narrative: Asthma exacerbation Bronchitis Pneumonia Respiratory failure Workup shows x-ray with right upper lobe pulmonary nodules but no obvious pneumonia. Will treat with IV Solu-Medrol, high-dose albuterol, 8:43 p.m.. Re-evaluation shows patient states he is feeling much better. He is still wheezing on exam but he is moving more air He is requesting discharge home. Will discharge him home with a prescription for prednisone, albuterol pump, albuterol nebulizer MDM - Asthma Lab Data Result diagrams: 01/09/21 19:43 01/09/21 20:09 Labs: Lab Results 01/09/21 01/09/21 01/09/21 Range/Units 17:40 19:43 20:09 WBC 6.8 (4.8-10.8) X10*3/uL RBC 5.01 (4.60-5.80) X10*6/uL Hgb 16.0 (14.0-18.0) g/dl Hct 46.3 (42.0-52.0) % MCV 92.4 (80.0-98.0) fL MCH 31.9 (27.0-33.0) pg MCHC 34.6 (31.0-36.0) g/dl RDW 12.4 (11.0-16.0) % Plt Count 255 (160-400) X10*3/uL MPV 10.0 (9.4-12.4) fL Immature Gran % (Auto) 0.1 (0.0-0.4) % Neut % (Auto) 58.9 (45-73) % Lymph % (Auto) 24.0 (20-40) % [place] % (Auto) 10.1 (2-11) % Eos % (Auto) 6.6 H (0-4) % Baso % (Auto) 0.3 (0-2) % Lymph # (Auto) 1.6 (1.2-4.9) X10*3/uL [place] # (Auto) 0.7 (0.1-1.2) X10*3/uL Eos # (Auto) 0.5 H (0.0-0.4) X10*3/uL Baso # (Auto) 0.0 (0.0-0.2) X10*3/uL Abs Immat Gran (auto) 0.01 (0.00-0.03) X10*3/uL Absolute Neuts (auto) 4.0 (2.0-8.3) x10*3/uL Absolute Nucleated RBC 0.000 (0.0-0.012) X10*3/uL Nucleated RBC % (auto) 0.0 (0.0-0.2) /100WBC D-Dimer NG/ML Sodium 139 (135-145) mmol/L Potassium 4.1 (3.3-5.1) mmol/L Chloride 105 (96-108) mmol/L Carbon Dioxide 27 (22-29) mmol/L Anion Gap 11 L (12-20) BUN 8 L (9-16) mg/dL Creatinine 1.04 (0.5-1.4) mg/dL Estim Creat Clear Calc 64.8 Estimated GFR > 60 Random Glucose 81 (60-115) mg/dL Calcium 8.5 D (8.4-10.2) mg/dL Total Bilirubin 0.4 (0.0-1.0) mg/dL AST 38 H (5-37) U/L ALT 28 (0-40) U/L Alkaline Phosphatase 54 D (39-117) U/L Total Protein 6.6 (6.5-8.0) g/dL Albumin 3.9 (3.5-5.0) g/dL COVID-19 ([facility]) Negative (Negative) COVID-19 Clin Com See Note 01/09/21 Range/Units 20:09 WBC (4.8-10.8) X10*3/uL RBC (4.60-5.80) X10*6/uL Hgb (14.0-18.0) g/dl Hct (42.0-52.0) % MCV (80.0-98.0) fL MCH (27.0-33.0) pg MCHC (31.0-36.0) g/dl RDW (11.0-16.0) % Plt Count (160-400) X10*3/uL MPV (9.4-12.4) fL Immature Gran % (Auto) (0.0-0.4) % Neut % (Auto) (45-73) % Lymph % (Auto) (20-40) % [place] % (Auto) (2-11) % Eos % (Auto) (0-4) % Baso % (Auto) (0-2) % Lymph # (Auto) (1.2-4.9) X10*3/uL [place] # (Auto) (0.1-1.2) X10*3/uL Eos # (Auto) (0.0-0.4) X10*3/uL Baso # (Auto) (0.0-0.2) X10*3/uL Abs Immat Gran (auto) (0.00-0.03) X10*3/uL Absolute Neuts (auto) (2.0-8.3) x10*3/uL Absolute Nucleated RBC (0.0-0.012) X10*3/uL Nucleated RBC % (auto) (0.0-0.2) /100WBC D-Dimer < 200 NG/ML Sodium (135-145) mmol/L Potassium (3.3-5.1) mmol/L Chloride (96-108) mmol/L Carbon Dioxide (22-29) mmol/L Anion Gap (12-20) BUN (9-16) mg/dL Creatinine (0.5-1.4) mg/dL Estim Creat Clear Calc Estimated GFR Random Glucose (60-115) mg/dL Calcium (8.4-10.2) mg/dL Total Bilirubin (0.0-1.0) mg/dL AST (5-37) U/L ALT (0-40) U/L Alkaline Phosphatase (39-117) U/L Total Protein (6.5-8.0) g/dL Albumin (3.5-5.0) g/dL COVID-19 ([facility]) (Negative) COVID-19 Clin Com Critical Care Time Critical Care Time Critical Care Time: Yes Total Critical Care Time: 60 Attestation: Critical care time outside of separately billable procedures. Critical care secondary to high-dose albuterol for respiratory distress secondary to severe asthma Discharge Plan Discharge Clinical Impression: Asthma with acute exacerbation Patient Disposition: Home, Self-Care Instructions: Asthma (ED), How to Use a Metered-Dose Inhaler (ED), How to Use a Nebulizer (ED) Prescriptions: New prednisone 20 mg tablet 40 mg PO DAILY Qty: 10 RF: 0 albuterol sulfate 0.63 mg/3 mL solution for nebulization 0.63 mg inhalation QID PRN (Reason: shortness of breath or wheezing) Qty: 75 RF: 0 albuterol sulfate 90 mcg/actuation HFA aerosol inhaler 2 puff inhalation Q6H PRN (Reason: shortness of breath or wheezing) Qty: 8.5 RF: 0 (DME) Aeroneb Go Nebulizer Misc See Rx Instructions .Route Qty: 1 RF: 0 No Action doxycycline hyclate 100 mg capsule 100 mg PO BID 7 Days Qty: 14 RF: 0 prednisone 20 mg tablet 40 mg PO DAILY 5 Days Qty: 10 RF: 0 albuterol sulfate [Ventolin HFA] 90 mcg/actuation HFA aerosol inhaler 2 puff inhalation Q4H PRN (Reason: wheezing) RF: 0 azithromycin 500 mg Tablet 500 mg PO Q24H Qty: 3 RF: 0 prednisone 20 mg tablet 40 mg PO DAILY Qty: 6 RF: 0 AirDuo Digihaler 55-14 mcg/actuation aero powdr breath act w/sensor 1 inh inhalation BID Qty: 1 RF: 2 doxycycline hyclate 100 mg Tablet 100 mg PO BID Qty: 6 RF: 0 Combivent Respimat 20-100 mcg/actuation mist 1 puff inhalation QID Qty: 4 RF: 0 Proair Digihaler 90 mcg/actuation aero powdr breath act w/sensor 2 inh inhalation Q4-6H PRN (Reason: shortness of breath or wheezing) Qty: 1 R F: 0 prednisone 20 mg tablet 40 mg PO DAILY Qty: 10 RF: 0
--- NOTE | 2021-01-09 19:26 | ECG_ITS ---
Test Reason : SOB Blood Pressure : / mmHG Vent. Rate : 088 BPM Atrial Rate : 088 BPM P-R Int : 144 ms QRS Dur : 080 ms QT Int : 362 ms P-R-T Axes : 078 -63 049 degrees QTc Int : 438 ms Normal sinus rhythm Right atrial enlargement Left anterior fascicular block Abnormal ECG When compared with ECG of 11-DEC-2020 08:37, No significant changes seen Referred By: Terrence Baker Electronically Signed By:YOHANA SÁNCHEZ MD
[2021-01-09] MEDS: methylPREDNISolone Sod Succ 125 MG/2 ML VIAL IVPUSH (19:44)
[2021-01-09 19:45] VITALS: BP 158/101; PULSE 87; RESP 19; TEMP 37.1; O2SAT 89
[2021-01-09] MEDS: 0.9 % Sodium Chloride 500 ML IV (19:45)
[2021-01-09] MEDS: Albuterol Sulfate (0.083%) 2.5 MG/3 ML VIAL.NEB 10 MG INHALE (19:53)
[2021-01-09 19:55] VITALS: PULSE 82; O2SAT 93
[2021-01-09 19:55] LABS: MANUAL DIFF FLAG NO
[2021-01-09] MEDS: Magnesium Sulfate/H2O 2 GM/50 ML PIGGYBACK IV (19:55)
[2021-01-09 19:56] LABS: Basophils Percent Auto 0.3 % (0-2); Eosinophils Absolute Auto 0.5 X10*3/uL (0.0-0.4); Eosinophils Percent Auto 6.6 % (0-4); Hematocrit 46.3 % (42.0-52.0); Imm Gran Abs Auto 0.01 X10*3/uL (0.00-0.03); Imm Gran Pct Auto 0.1 % (0.0-0.4); Lymphocytes Absolute Auto 1.6 X10*3/uL (1.2-4.9); Mean Corpuscular HGB Conc 34.6 g/dl (31.0-36.0); Mean Corpuscular Hemoglobin 31.9 pg (27.0-33.0); Mean Corpuscular Volume 92.4 fL (80.0-98.0); Monocytes Absolute Auto 0.7 X10*3/uL (0.1-1.2); Monocytes Percent Auto 10.1 % (2-11); Neutrophils Percent Auto 58.9 % (45-73); Platelet Count 255 X10*3/uL (160-400); Red Blood Count 5.01 X10*6/uL (4.60-5.80); Red Cell Distribution Width 12.4 % (11.0-16.0); White Blood Count 6.8 X10*3/uL (4.8-10.8)
[2021-01-09 20:26] LABS: D Dimer < 200 NG/ML
[2021-01-09 20:33] LABS: Alanine Aminotransferase 28 U/L (0-40); Albumin Level 3.9 g/dL (3.5-5.0); Alkaline Phosphatase 54 U/L (39-117); Anion Gap 11 (12-20); Aspartate Amino Transferase 38 U/L (5-37); Bilirubin Total 0.4 mg/dL (0.0-1.0); Blood Urea Nitrogen 8 mg/dL (9-16); Calcium 8.5 mg/dL (8.4-10.2); Carbon Dioxide 27 mmol/L (22-29); Chloride 105 mmol/L (96-108); Creatinine Clr Calc Pharmacy 64.8; Estimated Glomerular Filt Rate > 60; Glucose Random 81 mg/dL (60-115); Potassium 4.1 mmol/L (3.3-5.1); Sodium 139 mmol/L (135-145); Total Protein 6.6 g/dL (6.5-8.0)
[2021-01-09 20:56] VITALS: BP 159/81; PULSE 92; RESP 19; O2SAT 94
--- NOTE | 2021-01-09 21:02 | PC.NURSE ---
Pt remains alert and oriented x4, calm and cooperative. Pt denies pain. Pt states I feel much better . Denies SOB at this time, wheezing has improved. Pt O2 sat on room air is 95%. Pt denies cough at this time. Pt educated on discharge and stated an understanding. IV removed. Vitals stable. Pt ambulated out privately, steady on his feet. Pt voided in ER 750ml in urinal.
== END 2021-01-09 21:14 | disposition home or self-care (01) ==
PROVIDERS: Emergency Provider Emergency Medicine
DX: J45.901 Unspecified asthma with (acute) exacerbation (principal); F14.90 Cocaine use, unspecified, uncomplicated; F12.90 Cannabis use, unspecified, uncomplicated; Z20.822 Contact with and (suspected) exposure to COVID-19; Z79.899 Other long term (current) drug therapy
CPT/HCPCS: 36415; 71046; 80053; 85025; 85379; 87635; 93005; 94640; 94644; 96365; 96366; 96375; 99285; 99291; J2930; J3475

== ENCOUNTER 2021-02-17 09:35 | Inpatient (IN) | payer MEDICAID, SELFPAY ==
[2021-02-17] VITALS (11 sets, daily range): BP systolic 144–189; BP diastolic 78–93; PULSE 91–127; RESP 15–20; TEMP 36.6; O2SAT 92–98; BMI 23.3
--- NOTE | ~2021-02-17 | XR_ITS ---
EXAMINATION: XR CHEST CLINICAL INFORMATION: Cough and shortness of breath 5 days COMPARISON: January 09, 2021, December 11, 2020, and February 04, 2017. CT scan of October 21, 2015. TECHNIQUE: AP portable view of the chest was obtained. FINDINGS: There are few stable densities present within the right lung which were present on prior CT scan of October 21, 2015. No new region of acute parenchymal disease is noted. No pneumothorax or pleural effusion. Heart normal size. No evidence of pulmonary edema. XR/XR chest 1V IMPRESSION: No definite acute parenchymal disease.
--- NOTE | 2021-02-17 10:05 | ED.URI ---
HPI - URI/Sore Throat General Chief Complaint: Upper Respiratory Symptoms Stated Complaint: asthma Time Seen by Provider: 02/17/21 09:53 Source: patient Mode of arrival: ambulatory Limitations: language barrier (Patient's 1st language is Taiwanese, he speaks some Telugu, sign language interpreter was used) History of Present Illness HPI Narrative: 60-year-old male who presents emergency department for evaluation of shortness of breath x5 days and a productive cough. Patient states that he has been short of breath for approximately 5 days. The patient states that he has asthma and he has been using his inhaler 4 to 5 times a day over past 5 days with no relief his shortness of breath. States that he has a cough which is productive of thick yellow phlegm, with no blood in the sputum. He also complains of dyspnea on exertion but states that he was able to ride his bicycle to the emergency department to be evaluated. He has had 2-3 loose diarrheal stools per day. Denies myalgias or arthralgias. He denies chest pain, loss of sense smell or taste. The patient has not been vaccinated for COVID-19. Related Data Home Medications Medication Instructions Recorded Confirmed albuterol sulfate 90 mcg/actuation 2 puff INHALATION Q4H PRN 08/19/20 08/19/20 aerosol inhaler (Ventolin HFA) Previous Rx's Medication Instructions Recorded azithromycin 500 mg tablet 500 mg PO Q24H #3 tab 08/23/20 fluticasone 55 mcg-salmeterol 1 inh INHALATION BID #1 ea 08/23/20 14mcg/actuation breath act,powder sensor (AirDuo Digihaler) prednisone 20 mg tablet 40 mg PO DAILY #6 tab 08/23/20 doxycycline hyclate 100 mg capsule 100 mg PO BID 7 Days #14 cap 10/15/20 prednisone 20 mg tablet 40 mg PO DAILY 5 Days #10 tab 10/15/20 albuterol sulfate 90 mcg/actuation 2 inh INHALATION Q4-6H PRN #1 ea 12/13/20 breath activated powder inhaler,sensor (Proair Digihaler) doxycycline hyclate 100 mg tablet 100 mg PO BID #6 tab 12/13/20 ipratropium 20 mcg-albuterol 100 1 puff INHALATION QID #4 g 12/13/20 mcg/actuation mist for inhalation (Combivent Respimat) prednisone 20 mg tablet 40 mg PO DAILY #10 tab 12/13/20 albuterol sulfate 0.63 mg/3 mL 0.63 mg (3 mL) INHALATION QID PRN 01/09/21 solution for nebulization #75 ml albuterol sulfate 90 mcg/actuation 2 puff INHALATION Q6H PRN #8.5 g 01/09/21 aerosol inhaler nebulizers (Aeroneb Go Nebulizer) #1 ea 01/09/21 prednisone 20 mg tablet 40 mg PO DAILY #10 tab 01/09/21 Allergies Allergy/AdvReac Type Severity Reaction Status Date / Time crab Allergy Severe SWELLING/RA Verified 01/02/21 13:59 SH Review of Systems Review of Systems: Yes all other systems are reviewed and are negative Neurologic: Reports Abnormal speech present COUNT INCLUDES THE [facility] Past Medical History COUNT INCLUDES THE [facility] Narrative: Social history: The patient states that he drinks a pint to a 5th of vodka daily but he has not drank in 2-3 days since he has not been feeling well. He denies tobacco use. He states that he uses crack cocaine but has not used in a week. He does smoke marijuana daily. Medical History Alcohol abuse Asthma Asthma HCV (hepatitis C virus) Surgical History No pertinent past surgical history Social History Social History Household Members: None Housing: Apartment Do you presently have visiting nurse or other home services: No Alcohol intake: current Alcohol intake frequency: 3 or more drinks per day Alcohol type: hard liquor Patient Tobacco Use Status: Never used Tobacco Use of substances other than those prescribed or required for medical reasons: Yes Substance Use Type: Crack/Cocaine Advance Directives: Yes Advance Directives on File: Yes Advance Directives Date on File: 01/24/20 service: No Current occupational status: unemployed Physical Exam Vital Signs: Vital Signs: Last Vital Signs Temp 98 F 02/17/21 09:51 Pulse 97 02/17/21 14:11 Resp 20 02/17/21 14:11 BP 144/78 H 02/17/21 14:11 Pulse Ox 94 02/17/21 14:11 Oxygen Flow Rate 2 02/17/21 12:24 BMI result Body Mass Index 23.3 Const: General: cooperative, no acute distress, well developed, alert and awake Orientation/consciousness: oriented to person HENMT: Head: Yes normal to inspection, Yes normocephalic and Yes atraumatic Ears: hearing grossly normal bilaterally General nose exam: Normal external nose present Face and sinus: Yes normal facial exam Mouth: Normal oral and palatal mucosa present, lip normal, tongue normal, oropharynx normal and moist mucous membranes Throat: Yes posterior oropharynx normal, Yes tonsils normal and Yes uvula midline Eyes: General: appearance normal, both eyes and all related structures Eyelids: Yes eyelids normal Conjunctivae: conjunctivae normal Sclerae: sclerae normal Corneas: corneas normal Pupils: Equal, round and reactive pupils present Neck: Neck: Yes normal visual inspection, Yes no lymphadenopathy, Yes trachea midline and Yes supple Thyroid: Thyroid normal Lymphatic: no lymphadenopathy noted Chest: Chest palpation & inspection: normal inspection of the chest and normal palpation of entire chest wall Resp: Effort & Inspection: normal respiratory effort and able to speak in complete sentences Auscultation: wheezes (Diffuse wheezing) Cardio: Rate: regular rate Rhythm: regular rhythm Heart sounds: S1 normal heart sound present, S2 normal heart sound present and no murmurs GI: Inspection: Yes normal to inspection Palpation (GI): Soft to palpation, nontender and No hepatosplenomegaly present Auscultation: normal bowel sounds : General: Yes no CVA tenderness Back/Spine/Pelvis: Back: no CVA tenderness Thoracic/Lumbar Spine: thoracic and lumbar spine normal to inspection Skin: General skin exam: no rashes or lesions noted, no erythema and no jaundice Lesions: no lesions Rashes: no rashes Trauma: no lacerations or abrasions Wounds: no wounds Neuro: General: oriented to person, moves all extremities and no focal motor deficits Cranial nerves: Yes Equal, round and reactive pupils present Cognition (Neuro): normal cognition Speech: Abnormal speech present Motor exam (neuro): Motor abnormalities not present Extrem: General: Yes normal to inspection, Yes no pedal edema and Yes no calf tenderness Right upper extremity: normal to inspection Left upper extremity: normal to inspection Right lower extremity: normal to inspection Left lower extremity: normal to inspection Psych: Appearance: grossly normal Mental Status: mental status grossly normal Speech and movement: Normal speech and movement present Affect: normal affect Attitude: cooperative Thought process: Normal thought process present Insight: Good insight present (Psych) Course Course Course Narrative: 60-year-old male with a history of asthma, alcohol use disorder and cocaine use disorder who presents emergency department for evaluation of 5 days of shortness of breath with a productive cough. Patient has been using his albuterol inhaler with only minimal relief shortness of breath. The patient did ride his bike to the emergency department in his nurse will vital signs did reveal a pulse of 127. Repeat pulse was 94. Patient had an elevated blood pressure of 189/88. O2 saturation was 92-95% on room air. He was afebrile. Examination did reveal diffuse wheezing otherwise was unremarkable. I did order a chest x-ray and a COVID-19 test on this patient. Patient was ordered to get an albuterol nebulizer treatment 5 mg and prednisone 60 mg orally. 1223: Chest x-ray revealed no pneumonia. COVID-19 is pending. The patient did get some improvement after the 1st albuterol treatment. The nurse noted that the patient was hypoxic with an O2 saturation of 87% so he is placed on oxygen 2 L via nasal cannula with improvement his O2 saturation to 94-96%. Repeat lung exam revealed diffuse wheezing therefore he was ordered to get a DuoNeb. Given his hypoxic, I did order laboratory evaluation. 1328: Patient's laboratory evaluation was unremarkable. COVID-19 test was negative. Patient did get some improvement after the DuoNeb however he is still wheezing. Patient's O2 saturation on room air is 92 to 94%. I will obtain a blood gas on the patient. Patient was ordered to get a 3rd albuterol treatment. I also ordered Solu-Medrol 125 mg IV. Given his persistent wheezing and his episode of hypoxia, I will discuss admission with the covering hospitalist. 1414: ABG: PH 7.45, pCO2 33, PO2 68, O2 sat 92%, this was done on room air. This is reassuring since the patient is not retaining CO2 and does not appear to be hypoxic. Patient will be admitted to the hospitalist on the medical floor for further management. MDM - URI/Sore Throat Lab Data Result diagrams: 02/17/21 12:20 02/17/21 12:20 Labs: Lab Results 02/17/21 02/17/2102/17/21 Range/Units 10:11 12:20 12:20 WBC 7.7 (4.8-10.8) X10*3/uL RBC 5.41 (4.60-5.80) X10*6/uL Hgb 16.8 (14.0-18.0) g/dl Hct 49.9 (42.0-52.0) % MCV 92.2 (80.0-98.0) fL MCH 31.1 (27.0-33.0) pg MCHC 33.7 (31.0-36.0) g/dl RDW 12.6 (11.0-16.0) % Plt Count 266 (160-400) X10*3/uL MPV 9.6 (9.4-12.4) fL Immature Gran % (Auto) 0.3 (0.0-0.4) % Neut % (Auto) 83.8 H (45-73) % Lymph % (Auto) 9.2 L (20-40) % [place] % (Auto) 3.6 (2-11) % Eos % (Auto) 2.8 (0-4) % Baso % (Auto) 0.3 (0-2) % Lymph # (Auto) 0.7 L (1.2-4.9) X10*3/uL [place] # (Auto) 0.3 (0.1-1.2) X10*3/uL Eos # (Auto) 0.2 (0.0-0.4) X10*3/uL Baso # (Auto) 0.0 (0.0-0.2) X10*3/uL Abs Immat Gran (auto) 0.02 (0.00-0.03) X10*3/uL Absolute Neuts (auto) 6.5 (2.0-8.3) x10*3/uL Absolute Nucleated RBC 0.000 (0.0-0.012) X10*3/uL Nucleated RBC % (auto) 0.0 (0.0-0.2) /100WBC O2 Saturation % ABG pH at Pt Temp (7.35-7.45) ABG pH (Temp Correct) (7.35-7.45) ABG pCO2 at Pt Temp (32-45) mmHg ABG pCO2 (Temp Corrct (32-45) mmHg ABG pO2 at Pt Temp (83-108) mmHg ABG pO2 (Temp Correct (83-108) ABG HCO3 (22-26) mmol/L ABG Base Excess (Actual) mmol/L Sodium 139 (135-145) mmol/L Potassium 4.2 (3.3-5.1) mmol/L Chloride 103 (96-108) mmol/L Carbon Dioxide 27 (22-29) mmol/L Anion Gap 13 (12-20) BUN 13 (9-16) mg/dL Creatinine 1.12 (0.5-1.4) mg/dL Estim Creat Clear Calc 60.2 Estimated GFR > 60 Random Glucose 115 D (60-115) mg/dL Lactic Acid (0.5-2.0) mmol/L Calcium 9.4 D (8.4-10.2) mg/dL Total Bilirubin 0.5 (0.0-1.0) mg/dL AST 49 H (5-37) U/L ALT 46 H (0-40) U/L Alkaline Phosphatase 70 D (39-117) U/L Total Protein 7.6 (6.5-8.0) g/dL Albumin 4.2 (3.5-5.0) g/dL COVID-19 ([facility]) Negative (Negative) COVID-19 Clin Com See Note 02/17/21 02/17/21 Range/Units 12:20 13:42 WBC (4.8-10.8) X10*3/uL RBC (4.60-5.80) X10*6/uL Hgb (14.0-18.0) g/dl Hct (42.0-52.0) % MCV (80.0-98.0) fL MCH (27.0-33.0) pg MCHC (31.0-36.0) g/dl RDW (11.0-16.0) % Plt Count (160-400) X10*3/uL MPV (9.4-12.4) fL Immature Gran % (Auto) (0.0-0.4) % Neut % (Auto) (45-73) % Lymph % (Auto) (20-40) % [place] % (Auto) (2-11) % Eos % (Auto) (0-4) % Baso % (Auto) (0-2) % Lymph # (Auto) (1.2-4.9) X10*3/uL [place] # (Auto) (0.1-1.2) X10*3/uL Eos # (Auto) (0.0-0.4) X10*3/uL Baso # (Auto) (0.0-0.2) X10*3/uL Abs Immat Gran (auto) (0.00-0.03) X10*3/uL Absolute Neuts (auto) (2.0-8.3) x10*3/uL Absolute Nucleated RBC (0.0-0.012) X10*3/uL Nucleated RBC % (auto) (0.0-0.2) /100WBC O2 Saturation 92.0 % ABG pH at Pt Temp 7.45 (7.35-7.45) ABG pH (Temp Correct) 7.46 H (7.35-7.45) ABG pCO2 at Pt Temp 33 (32-45) mmHg ABG pCO2 (Temp Corrct 32 (32-45) mmHg ABG pO2 at Pt Temp 68 L (83-108) mmHg ABG pO2 (Temp Correct 66 L (83-108) ABG HCO3 23 (22-26) mmol/L ABG Base Excess (Actual) 0.7 mmol/L Sodium (135-145) mmol/L Potassium (3.3-5.1) mmol/L Chloride (96-108) mmol/L Carbon Dioxide (22-29) mmol/L Anion Gap (12-20) BUN (9-16) mg/dL Creatinine (0.5-1.4) mg/dL Estim Creat Clear Calc Estimated GFR Random Glucose (60-115) mg/dL Lactic Acid 1.6 (0.5-2.0) mmol/L Calcium (8.4-10.2) mg/dL Total Bilirubin (0.0-1.0) mg/dL AST (5-37) U/L ALT (0-40) U/L Alkaline Phosphatase (39-117) U/L Total Protein (6.5-8.0) g/dL Albumin (3.5-5.0) g/dL COVID-19 ([facility]) (Negative) COVID-19 Clin Com Critical Care Time Critical Care Time Critical Care Time: Yes Total Critical Care Time: 35 Attestation: Critical Care: The patient was critically ill with a high probability of imminent or life threatening deterioration. I spent greater than 30 minutes of discontinuous time evaluating the patient,delivering critical care at the bedside, discussing and evaluating pertinent data with consultants. Critical care time does not include time spent performing separately billable procedures or teaching. Total time spent performing critical care was 35 minutes. Discharge Plan Discharge Clinical Impression: Acute respiratory failure with hypoxia, Hypoxia Patient Disposition: Admitted As Inpatient
[2021-02-17] MEDS: Albuterol Sulfate (0.083%) 2.5 MG/3 ML VIAL.NEB 5 MG INHALE (10:15)
[2021-02-17] MEDS: predniSONE 20 MG TABLET 60 MG PO (10:35)
--- NOTE | 2021-02-17 11:07 | PC.NURSE ---
Updraft completed, RA sat 87-88%, placed on 2lpm and sat up to 93%
[2021-02-17 12:26] LABS: MANUAL DIFF FLAG NO
[2021-02-17 12:30] LABS: Basophils Percent Auto 0.3 % (0-2); Eosinophils Absolute Auto 0.2 X10*3/uL (0.0-0.4); Eosinophils Percent Auto 2.8 % (0-4); Hematocrit 49.9 % (42.0-52.0); Hemoglobin 16.8 g/dl (14.0-18.0); Imm Gran Abs Auto 0.02 X10*3/uL (0.00-0.03); Imm Gran Pct Auto 0.3 % (0.0-0.4); Lymphocytes Absolute Auto 0.7 X10*3/uL (1.2-4.9); Lymphocytes Percent Auto 9.2 % (20-40); Mean Corpuscular HGB Conc 33.7 g/dl (31.0-36.0); Mean Corpuscular Hemoglobin 31.1 pg (27.0-33.0); Mean Corpuscular Volume 92.2 fL (80.0-98.0); Mean Platelet Volume 9.6 fL (9.4-12.4); Monocytes Absolute Auto 0.3 X10*3/uL (0.1-1.2); Monocytes Percent Auto 3.6 % (2-11); Neutrophils Absolute Auto 6.5 x10*3/uL (2.0-8.3); Neutrophils Percent Auto 83.8 % (45-73); Platelet Count 266 X10*3/uL (160-400); Red Blood Count 5.41 X10*6/uL (4.60-5.80); Red Cell Distribution Width 12.6 % (11.0-16.0); White Blood Count 7.7 X10*3/uL (4.8-10.8)
--- NOTE | 2021-02-17 12:34 | PC.NURSE ---
Dr juarez to bedside and plan to admit if no change s/p second updraft ordered, pt agreeable. IV start and labs drawn. SR on tele rate 95-105 LS remains wheezy. No increased work of breathing with rest.
[2021-02-17 12:39] LABS: Lactic Acid 1.6 mmol/L (0.5-2.0)
[2021-02-17 12:41] LABS: COVID-19 Test Negative (Negative)
[2021-02-17] MEDS: Albuterol/Iprat 2.5/0.5MG 3 ML AMPUL.NEB INHALE ×3 (12:43→20:04)
[2021-02-17 12:44] LABS: Alanine Aminotransferase 46 U/L (0-40); Albumin Level 4.2 g/dL (3.5-5.0); Alkaline Phosphatase 70 U/L (39-117); Anion Gap 13 (12-20); Aspartate Amino Transferase 49 U/L (5-37); Bilirubin Total 0.5 mg/dL (0.0-1.0); Blood Urea Nitrogen 13 mg/dL (9-16); Calcium 9.4 mg/dL (8.4-10.2); Carbon Dioxide 27 mmol/L (22-29); Chloride 103 mmol/L (96-108); Creatinine Clr Calc Pharmacy 60.2; Estimated Glomerular Filt Rate > 60; Glucose Random 115 mg/dL (60-115); Potassium 4.2 mmol/L (3.3-5.1); Sodium 139 mmol/L (135-145); Total Protein 7.6 g/dL (6.5-8.0)
[2021-02-17 13:50] LABS: ABG Base Excess 0.7 mmol/L; ABG HCO3 23 mmol/L (22-26); ABG pCO2 33 mmHg (32-45); ABG pCO2 TC 32 mmHg (32-45); ABG pH 7.45 (7.35-7.45); ABG pH TC 7.46 (7.35-7.45); ABG pO2 68 mmHg (83-108); ABG pO2 TC 66 (83-108)
[2021-02-17] MEDS: Albuterol Sulfate (0.083%) 2.5 MG/3 ML VIAL.NEB INHALE (13:59)
[2021-02-17] MEDS: methylPREDNISolone Sod Succ 125 MG/2 ML VIAL IVPUSH (14:10)
--- NOTE | 2021-02-17 14:43 | P.HPHOSP_ITS ---
History of Present Illness Date of Service: 02/17/21 Attending physician on admission: Everette Goldberg Chief Complaint: Shortness of breath 60-year-old gentle with past medical history significant for asthma/COPD, history of heavy alcohol use last intake 1 week ago, history of cocaine use last use 6 days ago, nonsmoker, presented to [facility] due to symptoms of shortness of breath associated with productive cough of several days duration, patient took his home inhalers without significant improvement he denies any recent sick contacts, denies recent travel patient has not been immunized against COVID-19, patient this a.m. felt feverish otherwise denies chills, in emergency room patient noted to have hypoxia, finger oximetry 87% on room air, ABG showed PO2 of 68 with pH of 7.46, patient treated in the emergency room with IV steroids updraft treatment but since he had persistent shortness of breath wheeze and hypoxia he has been not admitted to [facility] with a diagnosis of acute hypoxic respiratory failure due to acute asthma exacerbation. Patient denies tremors or anxiety. Review of Systems Review of Systems: General - denies fevers or chills, denies weakness or fatigue HEENT -denies blurred vision,? denies headache,? denies sore throat Cardiovascular - denies chest pain or palpitations,? denies edema Respiratory - positive for:? Shortness of breath, productive cough of yellow sputum Gastrointestinal - denies abdominal pain, nausea, vomiting, diarrhea - denies flank pain, denies dysuria, denies frequency? or urgency Musculoskeletal - denies back pain, denies hip pain, denies knee pain, denies shoulder pain Neurological - denies any focal weakness or numbness Skin, denies any bruising or redness Psychiatric - denies any suicidal ideation, hallucinations, homicidal ideation Endocrinology - denies intolerance to hot / cold temperatures ? [facility] Medical History Alcohol abuse Asthma Asthma HCV (hepatitis C virus) Pertinent family history: Denies any significant family history. Surgical History No pertinent past surgical history Social History Household Members: None Housing: Apartment Do you presently have visiting nurse or other home services: No Alcohol intake: current Alcohol intake frequency: 3 or more drinks per day Alcohol type: hard liquor Patient Tobacco Use Status: Never used Tobacco Use of substances other than those prescribed or required for medical reasons: Yes Substance Use Type: Crack/Cocaine Advance Directives: Yes Advance Directives on File: Yes Advance Directives Date on File: 01/24/20 service: No Current occupational status: unemployed Meds Allergies Allergy/AdvReac Type Severity Reaction Status Date / Time crab Allergy Severe SWELLING/RA Verified 01/02/21 13:59 SH Active Medications: Current Medications Acetaminophen (Acetaminophen 325 Mg Tablet) 650 mg PO Q6H PRN PRN Reason: Pain, Mild (Pain Scale 1-3) Albuterol/Ipratropium (Albuterol/Iprat 2.5/0.5mg 3 Ml Ampul.Neb) 3 ml INHALE RQ4H WHILE AWAKE EMIGDIO Albuterol/Ipratropium (Albuterol/Iprat 2.5/0.5mg 3 Ml Ampul.Neb) 3 ml INHALE RQ4H PRN PRN Reason: Shortness of Breath Azithromycin (Azithromycin 500 Mg Tablet) 500 mg PO Q24H EMIGDIO Guaifenesin/Dextromethorphan (Guaifenesin Dm 100/10/5 Ml 5 Ml Syrup) 10 ml PO Q6H PRN PRN Reason: cough Methylprednisolone Sodium Succinate (Methylprednisolone Sod Succ 40 Mg/Ml Vial) 40 mg IVPUSH Q8H EMIGDIO Ondansetron HCl (Ondansetron Hcl 4 Mg/2 Ml Vial) 4 mg IVPUSH Q8H PRN PRN Reason: Nausea and Vomiting Sodium Chloride (0.9 % Sodium Chloride Flush 3 Ml Syringe) 3 ml IVFLUSH QSHIFT [facility] Home Medications Medication Instructions Recorded Confirmed Last Taken Type albuterol sulfate 90 mcg/actuation 2 puff INHALATION Q4H PRN 08/19/20 08/19/20 Unknown History aerosol inhaler (Ventolin HFA) Physical Exam Vital Signs and Narrative: Vital Signs: Last Vital Signs Temp 98 F 02/17/21 09:51 Pulse 97 02/17/21 14:11 Resp 20 02/17/21 14:11 BP 144/78 H 02/17/21 14:11 Pulse Ox 94 02/17/21 14:11 Oxygen Flow Rate 2 02/17/21 12:24 BMI result Body Mass Index 23.3 General awake alert x3, no acute distress. HEENT pupils equal round reactive to light and accommodation. Neck supple, no JVD. CVS regular rate rhythm, Respiratory lungs bilateral expiratory wheeze, no use of accessory muscles Gastrointestinal abdomen soft, nontender, bowel sounds audible, no guarding , no rigidity. Extremities no edema. no CVA tenderness Neuro nonfocal , speech clear. No tremors Skin no rash Psychological appropriate affect Results Labs CBC and Chem 7: 02/17/21 12:20 02/17/21 12:20 Labs: Laboratory Results - last 24 hr 02/17/21 02/17/21 02/17/21 10:11 12:20 12:20 MCV 92.2 MCH 31.1 MCHC 33.7 RDW 12.6 Plt Count 266 MPV 9.6 Immature Gran % (Auto) 0.3 Neut % (Auto) 83.8 H Lymph % (Auto) 9.2 L [place] % (Auto) 3.6 Eos % (Auto) 2.8 Baso % (Auto) 0.3 Lymph # (Auto) 0.7 L [place] # (Auto) 0.3 Eos # (Auto) 0.2 Baso # (Auto) 0.0 Abs Immat Gran (auto) 0.02 Absolute Neuts (auto) 6.5 Absolute Nucleated RBC 0.000 Nucleated RBC % (auto) 0.0 O2 Saturation ABG pH at Pt Temp ABG pH (Temp Correct) ABG pCO2 at Pt Temp ABG pCO2 (Temp Corrct ABG pO2 at Pt Temp ABG pO2 (Temp Correct ABG HCO3 ABG Base Excess (Actual) Anion Gap 13 Estim Creat Clear Calc 60.2 Estimated GFR > 60 Random Glucose 115 D Lactic Acid Calcium 9.4 D Total Bilirubin 0.5 AST 49 H ALT 46 H Alkaline Phosphatase 70 D Total Protein 7.6 Albumin 4.2 COVID-19 ([facility]) Negative COVID-19 Clin Com See Note 02/17/21 02/17/21 12:20 13:42 MCV MCH MCHC RDW Plt Count MPV Immature Gran % (Auto) Neut % (Auto) Lymph % (Auto) [place] % (Auto) Eos % (Auto) Baso % (Auto) Lymph # (Auto) [place] # (Auto) Eos # (Auto) Baso # (Auto) Abs Immat Gran (auto) Absolute Neuts (auto) Absolute Nucleated RBC Nucleated RBC % (auto) O2 Saturation 92.0 ABG pH at Pt Temp 7.45 ABG pH (Temp Correct) 7.46 H ABG pCO2 at Pt Temp 33 ABG pCO2 (Temp Corrct 32 ABG pO2 at Pt Temp 68 L ABG pO2 (Temp Correct 66 L ABG HCO3 23 ABG Base Excess (Actual) 0.7 Anion Gap Estim Creat Clear Calc Estimated GFR Random Glucose Lactic Acid 1.6 Calcium Total Bilirubin AST ALT Alkaline Phosphatase Total Protein Albumin COVID-19 ([facility]) COVID-19 Clin Com Imaging Radiologist's Impressions: Impressions Chest X-Ray 02/17/21 10:11 IMPRESSION: No definite acute parenchymal disease. Assessment and Plan (1) Acute respiratory failure with hypoxia: Status: Acute (2) Acute asthma exacerbation: Status: Acute 60 yo M with a PMH of asthma who presents to the hospital with complaints of SOB, productive cough for 5 days duration, patient noted to have hypoxia in the emergency room with diffuse bilateral expiratory wheeze therefore being admitted for continued monitoring and treatment. 1. Acute Resp Failure with hypoxia due to acute asthma exacerbation Admit to medical floor, will treat with scheduled and as needed updraft treatment, IV Solu Medrol and azithromycin Add cough medication, wean oxygen as tolerated since patient not on home oxygen Will recommend outpatient pulmonary follow-up Anticipate 2-3 days of hospitalization due to hypoxia and significant bilateral wheeze. 2. Alcohol abuse with dependence Last alcohol intake 1 week ago, denies withdrawal symptoms , monitor with CIWA and start pheno if needed Strongly recommend to abstain from alcohol 3. Cocaine use disorder will obtain Addiction Team consult, as needed anxiolytics Full Code DVT pptx, Lovenox Quality Stroke Does the patient have a stroke diagnosis?: No VTE Prior VTE?: No VTE Risk Level:: Medical - moderate - high VTE Device Contraindication: Treatment Not Indicated VTE Drug Contraindication: N/A - Med Ordered
--- NOTE | 2021-02-17 15:12 | MHC.CM.PN ---
PATIENT LIVES ALONE. HE SUES NO DME OR [facility] SERVICES DOES NOT RECALL NAME OF PCP BUT DOES REPORTS USING [facility] [facility] [facility] FOR MEDICAL NEEDS. CURRENT PLAN IS HOME NO SERVICES. PATIENT AWARE THAT HE IS ADMITTED INPATIENT AND WILL BE TRANSFERRED TO THE 3RD FLOOR. CM TO FOLLOW UP ON THE UNIT WITH PATIENT FOR ANY CHANGES IN DC PLAN.
[2021-02-17 15:40] LABS: ABG Refer to POC result
[2021-02-17] MEDS: Azithromycin 500 MG TABLET PO (17:15)
--- NOTE | 2021-02-17 19:04 | PC.NURSE ---
This RN spoke with Paola who states this pt does not require a second set of BC
[2021-02-18 01:22] VITALS: BP 131/80; PULSE 97; RESP 17; TEMP 36.7; O2SAT 96
[2021-02-18] MEDS: methylPREDNISolone Sod Succ 40 MG/ML VIAL IVPUSH (01:27)
--- NOTE | 2021-02-18 04:19 | PC.NURSE ---
Pt resting on stretcher in NAD, breathing with ease on RA. Pt asleep with equal chest rise and fall bilaterally.
[2021-02-18 05:16] VITALS: BP 134/83; PULSE 88; RESP 15; TEMP 37.1; O2SAT 96
[2021-02-18] MEDS: Albuterol/Iprat 2.5/0.5MG 3 ML AMPUL.NEB INHALE (09:02)
[2021-02-18 09:03] VITALS: PULSE 91; RESP 17; O2SAT 95
--- NOTE | 2021-02-18 09:14 | PHA.MEDREC ---
Addendum entered by Heather Jenkins [facility] 02/18/21 09:18: Called [facility]- He has only picked up the albuterol inhaler in the last few months. Original Note: Pharmacy Consult ? Medication Reconciliation Pharmacy has completed the medication reconciliation. Spoke with patient in ED.
--- NOTE | 2021-02-18 11:19 | P.DS_ITS ---
DS: Providers Provider Date of Service: 02/18/21 Date of admission: 02/17/21 14:36 Primary care physician: [facility] DS: Diagnosis Discharge Diagnosis (1) Acute respiratory failure with hypoxia: Status: Acute (2) Acute asthma exacerbation: Status: Acute DS: Summary Hospital Course Hospital Course: History of presenting illness Chief Complaint: Shortness of breath 60-year-old gentle with past medical history significant for asthma/COPD, history of heavy alcohol use last intake 1 week ago, history of cocaine use last use 6 days ago, nonsmoker, presented to [facility] due to symptoms of shortness of breath associated with productive cough of several days duration, patient took his home inhalers without significant improvement he denies any recent sick contacts, denies recent travel patient has not been immunized against COVID-19, patient this a.m. felt feverish otherwise denies chills, in emergency room patient noted to have hypoxia, finger oximetry 87% on room air, ABG showed PO2 of 68 with pH of 7.46, patient treated in the emergency room with IV steroids updraft treatment but since he had persistent shortness of breath wheeze and hypoxia he has been not admitted to [facility] with a diagnosis of acute hypoxic respiratory failure due to acute asthma exacerbation.? Patient denies tremors or anxiety. Hospital course 60-year-old gentleman with past medical history of asthma, heavy alcohol use and illicit drug use presented to [facility] due to symptoms of shortness of breath and productive cough, patient diagnosed to have acute exacerbation treated in the emergency room with IV steroids and updraft treatment with no significant improvement and was also hypoxic therefore admitted with a diagnosis of acute hypoxic respiratory failure, patient treated with IV steroids, updraft treatments and antibiotics with good response, this morning patient is eager to be discharged home since he has work to be done and refusing to stay, to be seen by care team, since patient is clinically stable he is being discharged home on 5 days of by mouth steroids, albuterol inhaler, and azithromycin he has been strongly advised of abstain from alcohol and cocaine use. Time Spent with Patient Time attestation: Total time spent providing and/or coordinating discharge services: Discharge coordination time: Greater than 30 minutes Quality: Stroke Does the patient have a stroke diagnosis?: No Physical Exam Vital Signs: Vital Signs: Last Vital Signs Temp 98.8 F 02/18/21 05:16 Pulse 91 02/18/21 09:03 Resp 17 02/18/21 09:03 BP 134/83 02/18/21 05:16 Pulse Ox 96 02/18/21 05:16 Oxygen Flow Rate 2 02/17/21 12:24 BMI result Body Mass Index 23.3 General awake alert x3, no acute distress.? Neck supple, no JVD. CVS? regular rate rhythm, Respiratory lungs scattered expiratory wheeze, no use of accessory muscles, no respiratory distress talking in full sentences Gastrointestinal abdomen soft, nontender, bowel sounds audible, no guarding , no rigidity. Extremities no edema. Neuro nonfocal , speech clear.? No tremors Skin no rash Psychological appropriate affect DS: Data Data Completed and Pending Completed studies during hospitalization [Text1]: Procedures Detoxification Services for Substance Abuse Treatment (08/19/20) Labs on day of discharge: Laboratory Results - last 24 hr 02/17/21 02/17/21 02/17/21 10:11 12:20 12:20 WBC 7.7 RBC 5.41 Hgb 16.8 Hct 49.9 MCV 92.2 MCH 31.1 MCHC 33.7 RDW 12.6 Plt Count 266 MPV 9.6 Immature Gran % (Auto) 0.3 Neut % (Auto) 83.8 H Lymph % (Auto) 9.2 L Saline % (Auto) 3.6 Eos % (Auto) 2.8 Baso % (Auto) 0.3 Lymph # (Auto) 0.7 L Saline # (Auto) 0.3 Eos # (Auto) 0.2 Baso # (Auto) 0.0 Abs Immat Gran (auto) 0.02 Absolute Neuts (auto) 6.5 Absolute Nucleated RBC 0.000 Nucleated RBC % (auto) 0.0 O2 Saturation ABG pH at Pt Temp ABG pH (Temp Correct) ABG pCO2 at Pt Temp ABG pCO2 (Temp Corrct ABG pO2 at Pt Temp ABG pO2 (Temp Correct ABG HCO3 ABG Base Excess (Actual) Sodium 139 Potassium 4.2 Chloride 103 Carbon Dioxide 27 Anion Gap 13 BUN 13 Creatinine 1.12 Estim Creat Clear Calc 60.2 Estimated GFR > 60 Random Glucose 115 D Lactic Acid Calcium 9.4 D Total Bilirubin 0.5 AST 49 H ALT 46 H Alkaline Phosphatase 70 D Total Protein 7.6 Albumin 4.2 COVID-19 ([facility]) Negative COVID-19 Clin Com See Note 02/17/21 02/17/21 12:20 13:42 WBC RBC Hgb Hct MCV MCH MCHC RDW Plt Count MPV Immature Gran % (Auto) Neut % (Auto) Lymph % (Auto) Saline % (Auto) Eos % (Auto) Baso % (Auto) Lymph # (Auto) Saline # (Auto) Eos # (Auto) Baso # (Auto) Abs Immat Gran (auto) Absolute Neuts (auto) Absolute Nucleated RBC Nucleated RBC % (auto) O2 Saturation 92.0 ABG pH at Pt Temp 7.45 ABG pH (Temp Correct) 7.46 H ABG pCO2 at Pt Temp 33 ABG pCO2 (Temp Corrct 32 ABG pO2 at Pt Temp 68 L ABG pO2 (Temp Correct 66 L ABG HCO3 23 ABG Base Excess (Actual) 0.7 Sodium Potassium Chloride Carbon Dioxide Anion Gap BUN Creatinine Estim Creat Clear Calc Estimated GFR Random Glucose Lactic Acid 1.6 Calcium Total Bilirubin AST ALT Alkaline Phosphatase Total Protein Albumin COVID-19 ([facility]) COVID-19 Clin Com Discharge Plan Discharge Patient Disposition: Home, Self-Care Discharge Diagnosis: Acute hypoxic respiratory failure due to asthma exacerbation Alcohol abuse and dependence Substance abuse disorder Referrals: [facility] [Primary Care Provider] - 1 Week Discharge Medications: New dextromethorphan-guaifenesin 10-100 mg/5 mL Syrup 10 ml PO Q6H PRN (Reason: cough) Qty: 240 RF: 0 azithromycin 500 mg Tablet 500 mg PO Q24H Qty: 4 RF: 0 prednisone 20 mg tablet 20 mg PO DAILY Qty: 5 RF: 0 albuterol sulfate 90 mcg/actuation HFA aerosol inhaler 2 puff inhalation Q4-6H PRN (Reason: shortness of breath or wheezing) Qty: 8.5 RF: 0 Continued albuterol sulfate 90 mcg/actuation HFA aerosol inhaler 2 puff inhalation Q6H PRN (Reason: shortness of breath or wheezing) Qty: 8.5 RF: 0 (DME) Aeroneb Go Nebulizer Misc See Rx Instructions .Route Qty: 1 RF: 0 Discharge Orders: Discharge Order (Routine); Ordered 02/18/21 Ordered By: Everette Goldberg Diet: advance to usual diet Activity on Discharge: As tolerated Stand Alone Forms: Patient Portal Discharge page Care Plan Goals: Asthma exacerbation/alcohol dependence and substance use strongly advised to abstain from alcohol and drug use, take albuterol inhaler 2 puffs every 4 hour as needed take prednisone 20 mg daily for 5 days with food Health Concerns: Alcohol dependence/asthma and substance use Plan of Treatment: Follow-up with primary care physician in 1-2 weeks Assessment: As per discharge summary
--- NOTE | 2021-02-18 14:59 | MHC.CM.PN ---
PATIENT IS DISCHARGED HOME - SELF CARE
== END 2021-02-18 11:30 | disposition home or self-care (01) | DRG 141 ==
LOC: HO.ED 10:29 → HO.EDOVER 14:41
PROVIDERS: Admitting Provider Hospitalist; Emergency Provider Emergency Medicine Emergency Medical Services; Visit Provider Hospitalist
DX: J45.901 Unspecified asthma with (acute) exacerbation (principal); J96.01 Acute respiratory failure with hypoxia; F14.90 Cocaine use, unspecified, uncomplicated; F10.20 Alcohol dependence, uncomplicated; Z20.822 Contact with and (suspected) exposure to COVID-19; Z79.899 Other long term (current) drug therapy
CPT/HCPCS: 36415; 71045; 80053; 82803; 83605; 85025; 87040; 87635; 94640; 94644; 99285; J2920; J2930

== ENCOUNTER 2021-02-28 12:37 | Emergency (ER) | payer MEDICAID, SELFPAY ==
--- NOTE | ~2021-02-28 | XR_ITS ---
EXAMINATION: XR CHEST CLINICAL INFORMATION: Shortness of breath COMPARISON: February 17, 2021 and January 09, 2021 TECHNIQUE: 2 views of the chest were obtained. FINDINGS: There is hyperinflation of the lungs. No pneumothorax or pleural effusion. Heart normal size. No evidence of pulmonary edema. Region of scarring is seen at the left base. There are some stable density seen within the right upper lobe and right middle lobe. There appears to be an old healed left posterior rib fracture. XR/XR chest 2V IMPRESSION: No acute disease. Chronic findings as described.
[2021-02-28 12:44] VITALS: BP 140/103; PULSE 106; RESP 18; TEMP 36.4; O2SAT 95; BMI 23.3
[2021-02-28 13:23] LABS: COVID-19 Test Negative (Negative)
--- NOTE | 2021-02-28 17:15 | ED.ASTHMA ---
HPI - Asthma General Chief Complaint: Asthma Stated Complaint: Asthma Time Seen by Provider: 02/28/21 17:13 Source: patient Mode of arrival: ambulatory Limitations: no limitations History of Present Illness HPI Narrative: 60-year-old male presents to emergency department complaining of shortness of breath. Patient has known asthma he states he has never smoked he is feeling worse over the past few days. He has been using his inhaler without any relief he denies any fevers or chills he is not vaccinated for COVID. Patient does have normal x-ray and negative COVID swab after waiting waiting on for some time. MD complaint: asthma attack , shortness of breath and wheezing Related Data Previous Rx's Medication Instructions Recorded albuterol sulfate 90 mcg/actuation 2 puff INHALATION Q6H PRN #8.5 g 01/09/21 aerosol inhaler nebulizers (Aeroneb Go Nebulizer) #1 ea 01/09/21 albuterol sulfate 90 mcg/actuation 2 puff INHALATION Q4-6H PRN #8.5 g 02/18/21 aerosol inhaler azithromycin 500 mg tablet 500 mg PO Q24H #4 tab 02/18/21 dextromethorphan-guaifenesin 10 10 ml PO Q6H PRN #240 ml 02/18/21 mg-100 mg/5 mL oral syrup prednisone 20 mg tablet 20 mg PO DAILY #5 tab 02/18/21 albuterol sulfate 90 mcg/actuation 1 inh INHALATION Q6H PRN #1 ea 02/28/21 breath activated powder inhaler,sensor prednisone 20 mg tablet 60 mg PO DAILY 5 Days #15 tab 02/28/21 Allergies Allergy/AdvReac Type Severity Reaction Status Date / Time crab Allergy Severe SWELLING/RA Verified 02/28/21 12:43 Review of Systems Review of Systems: Review of systems: General: Patient denies any fever chills recent illness or falls Musculoskeletal: Denies back pain or body aches or other injuries HEENT: denies headache, runny nose, ear pain Respiratory: shortness of breath, cough Cardiovascular: no chest pain or palpitations : denies dysuria, frequency Abdomen: no nausea vomiting denies abdominal pain Extremities: no swelling, no pain Skin: no diaphoresis Yes all other systems are reviewed and are negative PMFSH Past Medical History Medical History Alcohol abuse Asthma Asthma HCV (hepatitis C virus) Surgical History No pertinent past surgical history Social History Social History Household Members: None Housing: Apartment Do you presently have visiting nurse or other home services: No Alcohol intake: current Alcohol intake frequency: 3 or more drinks per day Alcohol type: hard liquor Patient Tobacco Use Status: Never used Tobacco Substance Use Type: Crack/Cocaine Advance Directives: Yes Advance Directives on File: Yes Advance Directives Date on File: 01/24/20 service: No Current occupational status: unemployed Physical Exam Vital Signs: Vital Signs: Last Vital Signs Temp 97.5 F 02/28/21 12:44 Pulse 83 02/28/21 17:38 Resp 14 02/28/21 17:38 BP 140/103 H 02/28/21 12:44 Pulse Ox 95 02/28/21 12:44 BMI result Body Mass Index 23.3 General: Well-appearing well-nourished in no signs of distress HEENT: Normocephalic atraumatic Neck: No signs of JVD, no masses no tenderness or lymphadenopathy Cardiovascular: Regular rate and rhythm Respiratory: Wheezing bilaterally Abdomen: Soft nontender no masses Extremities: Normal pedal pulses no signs of edema Skin: Dry warm no rashes Back: No tenderness full ROM MDM - Asthma MDM Narrative Medical decision making narrative: Patient has a negative x-ray negative COVID swab give patient a breathing treatment start patient on prednisone and reassess. 1826 patient with a couple breathing treatments feeling much better I did send prednisone to his pharmacy as well as albuterol. Patient is happy with the plan to go home. Lab Data Labs: Lab Results 02/28/21 Range/Units 12:47 COVID-19 ([facility]) Negative (Negative) COVID-19 Clin Com See Note Discharge Plan Discharge Clinical Impression: Asthma with acute exacerbation Patient Disposition: Home, Self-Care Instructions: Asthma (ED), How to Use a Metered-Dose Inhaler (ED), Wheezing (ED) Additional Instructions: Please call the doctor if you have any other concerns please do not hesitate to come back to emergency department. Prescriptions: New prednisone 20 mg tablet 60 mg PO DAILY 5 Days Qty: 15 RF: 0 albuterol sulfate 90 mcg/actuation aero powdr breath act w/sensor 1 inh inhalation Q6H PRN (Reason: shortness of breath or wheezing) Qty: 1 RF: 0 No Action albuterol sulfate 90 mcg/actuation HFA aerosol inhaler 2 puff inhalation Q6H PRN (Reason: shortness of breath or wheezing) Qty: 8.5 RF: 0 (DME) Aeroneb Go Nebulizer Misc See Rx Instructions .Route Qty: 1 RF: 0 dextromethorphan-guaifenesin 10-100 mg/5 mL Syrup 10 ml PO Q6H PRN (Reason: cough) Qty: 240 RF: 0 azithromycin 500 mg Tablet 500 mg PO Q24H Qty: 4 RF: 0 prednisone 20 mg tablet 20 mg PO DAILY Qty: 5 RF: 0 albuterol sulfate 90 mcg/actuation HFA aerosol inhaler 2 puff inhalation Q4-6H PRN (Reason: shortness of breath or wheezing) Qty: 8.5 RF: 0
[2021-02-28] MEDS: Albuterol Sulfate (0.083%) 2.5 MG/3 ML VIAL.NEB 5 MG INHALE (17:36)
[2021-02-28 17:38] VITALS: PULSE 83; RESP 14; O2SAT 96
[2021-02-28] MEDS: predniSONE 20 MG TABLET 60 MG PO (18:03)
== END 2021-02-28 18:39 | disposition home or self-care (01) ==
PROVIDERS: Emergency Provider Student in an Organized Health Care Education/Training Program
DX: J45.901 Unspecified asthma with (acute) exacerbation (principal); Z20.822 Contact with and (suspected) exposure to COVID-19
CPT/HCPCS: 71046; 87635; 94640; 99282; 99284

== ENCOUNTER 2021-03-31 10:24 | Emergency (ER) | payer MEDICAID, SELFPAY ==
--- NOTE | ~2021-03-31 | XR_ITS ---
EXAMINATION: XR CHEST CLINICAL INFORMATION: Cough. Wheezing. COMPARISON: Chest done on 02/28/2021 and 01/09/2021. TECHNIQUE: 2 views of the chest were obtained. FINDINGS: Both upper lobes appear abnormal (right greater than left) with ill-defined subtle nodular opacities at right upper lobe however, appears similar to prior chest radiograph done on 01/09/2021. The remainder of the lung rosado are clear. The cardiac mediastinal silhouette is within normal limits. No visible pleural effusion or pneumothorax. XR/XR chest 2V IMPRESSION: Abnormal chest radiograph however, appears similar to prior study dated 01/09/2021.
[2021-03-31 10:27] VITALS: BP 167/78; PULSE 79; RESP 20; TEMP 36.8; O2SAT 94; O2SAT 96; BMI 23.3
--- NOTE | 2021-03-31 11:18 | ED_ITS ---
HPI - Asthma General Chief Complaint: Asthma Stated Complaint: ASTHMA EXAC Time Seen by Provider: 03/31/21 10:52 Source: patient Mode of arrival: ambulatory Limitations: language barrier History of Present Illness HPI Narrative: 60-year-old male with a past medical history of asthma, hep C, and alcohol abuse, presents for 1 week of progressive cough and wheezing. Patient states he feels he is having an asthma attack. He has had a cough that is productive for the last week without fever. He has been using his albuterol inhaler all night but can not sleep. States he normally drinks daily, 5 beers a day, but can not drink this week due to coughing. Denies recent drug use. He has no primary care provider. This is his 5th the emergency room visit within 3 months for the same presentation. MD complaint: asthma attack Onset (ago): week(s) (1) Severity: moderate Associated symptoms: productive cough Asthma History: history of frequent attacks Treatments Prior to Arrival: inhaled bronchodilator Related Data Current Asthma Therapy: inhaled bronchodilator Previous Rx's Medication Instructions Recorded albuterol sulfate 90 mcg/actuation 2 puff INHALATION Q6H PRN #8.5 g 01/09/21 aerosol inhaler nebulizers (Aeroneb Go Nebulizer) #1 ea 01/09/21 albuterol sulfate 90 mcg/actuation 2 puff INHALATION Q4-6H PRN #8.5 02/18/21 g aerosol inhaler azithromycin 500 mg tablet 500 mg PO Q24H #4 tab 02/18/21 dextromethorphan-guaifenesin 10 10 ml PO Q6H PRN #240 ml 02/18/21 mg-100 mg/5 mL oral syrup prednisone 20 mg tablet 20 mg PO DAILY #5 tab 02/18/21 albuterol sulfate 90 mcg/actuation 1 inh INHALATION Q6H PRN #1 ea 02/28/21 breath activated powder inhaler,sensor prednisone 20 mg tablet 60 mg PO DAILY 5 Days #15 tab 02/28/21 albuterol sulfate 90 mcg/actuation 2 puff INHALATION Q4-6H PRN #8.5 03/31/21 g aerosol inhaler fluticasone propionate 110 1 puff INHALATION BID #12 g 03/31/21 mcg/actuation HFA aerosol inhaler (Flovent HFA) prednisone 20 mg tablet 60 mg PO DAILY 5 Days #15 tab 03/31/21 Allergies Allergy/AdvReac Type Severity Reaction Status Date / Time crab Allergy Severe SWELLING/RA Verified 03/31/21 13:05 Review of Systems Verdana 4l Constitutional: Verdana 4d Constitutional: Verdana 4d Verdana 4d Denies body ache(s), Denies chills, Reports fatigue, Denies fever(s), Denies malaise and Denies weakness Verdana 4l Eyes: Verdana 4d Verdana 4d Eyes: Verdana 4d Denies diplopia Verdana 4l ENT: Verdana 4d Denies vertigo, Denies dizziness, Denies otalgia, Denies post nasal drip and Denies sore throat Verdana 4l Cardiovascular: Verdana 4d Cardiovascular: Verdana 4d Verdana 4d Denies chest pain, Denies syncope, Denies leg edema, Denies lightheadedness, Denies Loss of Consciousness, Denies palpitations and Reports dyspnea Verdana 4l Respiratory: Verdana 4d Verdana 4d Respiratory: Verdana 4d Reports chest congestion, Reports cough, Denies hemoptysis, Reports dyspnea and Reports wheezing Verdana 4l Gastrointestinal: Verdana 4d Gastrointestinal: Verdana 4d Verdana 4d Denies abdominal pain, Denies hematochezia, Denies constipation, Denies diarrhea, Denies nausea and Denies vomiting Verdana 4l Musculoskeletal: Verdana 4d Musculoskeletal: Verdana 4d Verdana 4d Reports no additional musculoskeletal complaints Verdana 4l Neurologic: Verdana 4d Denies confusion, Denies vertigo, Denies dizziness, Denies syncope and Denies weakness Verdana 4l Psychiatric: Verdana 4d Verdana 4d Psychiatric: Verdana 4d Denies anxiety, Denies confusion and Denies depression Verdana 4l Endocrine: Verdana 4d Verdana 4d Endocrine: Verdana 4d Reports fatigue and Denies palpitations Verdana 4l Allergic/Immunologic: Verdana 4d Allergic/Immunologic: Verdana 4d Verdana 4d Reports wheezing PMFSH Past Medical History Medical History Alcohol abuse Asthma Asthma HCV (hepatitis C virus) Surgical History No pertinent past surgical history Social History Social History Household Members: None Housing: Apartment Do you presently have visiting nurse or other home services: No Alcohol intake: current Alcohol intake frequency: 3 or more drinks per day Alcohol type: hard liquor Patient Tobacco Use Status: Never used Tobacco Substance Use Type: Crack/Cocaine Advance Directives: Yes Advance Directives on File: Yes Advance Directives Date on File: 01/24/20 service: No Current occupational status: unemployed Physical Exam Verdana 4l Vital Signs: Verdana 4d Verdana 4d Vital Signs: Verdana 4d Verdana 4Bd Last Vital Signs Verdana 4d [employer] New 4d [employer] New 4d Temp 98.3 F 03/31/21 12:34 [employer] New 4d Pulse 70 03/31/21 12:34 [employer] New 4d Resp 17 03/31/21 12:34 BP 149/78 H 03/31/21 12:34 Pulse Ox 96 03/31/21 12:34 BMI result Body Mass Index 23.3 Const: General: alert, awake and acute distress mild and respiratory; No confusion Nutritional Appearance: cachectic Orientation/consciousness: patient oriented x3 and No confusion Limitations: no limitations HENMT: Head: Yes normal to inspection, Yes normocephalic and Yes atraumatic Ears: hearing grossly normal bilaterally, external ears normal, TM's normal bilaterally and EAC's normal General nose exam: Normal external nose present Face and sinus: Yes normal facial exam and Yes sinuses nontender Mouth: Normal oral and palatal mucosa present Throat: Yes posterior oropharynx normal Eyes: Conjunctivae: conjunctivae normal Pupils: Equal, round and reactive pupils present EOM: EOMs intact bilaterally Neck: Neck: Yes full ROM, Yes no lymphadenopathy and Yes supple Resp: Other: RR 20 Effort & Inspection: normal respiratory effort, able to speak in complete sentences, no pursed lip breathing, no retractions and no tripod positioning Auscultation: no crackles, no rales, rhonchi throughout and wheezes throughout Cardio: Rate: regular rate Rhythm: regular rhythm Heart sounds: S1 normal heart s ound present and S2 normal heart sound present GI: Inspection: Yes normal to inspection Palpation (GI): Soft to palpation, nontender, no guarding and not rigid Percussion: Yes normal to percussion Auscultation: normal bowel sounds Skin: Other: track felton/excoriation right forearm, no redness, swelling or warmth surrounding Neuro: General: patient oriented x3 and No confusion Cranial nerves: Yes Equal, r ound and reactive pupils present Extrem: General: Yes normal to inspection and Yes full ROM Psych: Appearance: grossly normal Affect: normal affect Attitude: cooperative Thought process: Normal thought process present Course Course Course Narrative: 60-year-old alcoholic presents with asthma exacerbation, cough that is worsening for the past week that is productive. On exam, patient has 96% oxygen saturation on room air, respiration rate 20. Patient has no retractions, no work of breathing. Lung exam reveals wheezes and rhonchi throughout. Patient actively coughing. Will test for COVID, get chest x-ray, get labs, give Solu-Medrol, give breathing treatment with DuoNeb and reassessed Reevaluation(s) Reevaluation #1: COVID is negative. Labs are unremarkable. Chest x-ray below Chest XR: FINDINGS: Both upper lobes appear abnormal (right greater than left) with ill-defined subtle nodular opacities at right upper lobe however, appears similar to prior chest radiograph done on 01/09/2021. The remainder of the lung rosado are clear. The cardiac mediastinal silhouette is within normal limits. No visible pleural effusion or pneumothorax. XR/XR chest 2V IMPRESSION: Abnormal chest radiograph however, appears similar to prior study dated 01/09/2021. After DuoNeb, patient feeling much better. Respirations 17 per minute, satting 98% on room air Still wheezy, will prescribe prednisone for home Plan is to refer patient to [facility] so that he he is able to get set up with a primary care provider to help him manage his asthma, will send him home on prednisone, albuterol, and Flovent. Discussed with patient the importance of using corticosteroid to help control his asthma. Counseled patient to use his albuterol inhaler, 2 puffs every 4 hours for the next few days. MDM - Asthma Lab Data Result diagrams: 03/31/21 12:50 03/31/21 12:50 Labs: Lab Results 03/31/21 03/31/21 03/31/21 Range/Units 12:50 12:50 12:50 WBC 5.3 (4.8-10.8) X10*3/uL RBC 4.83 (4.60-5.80) X10*6/uL Hgb 15.1 (14.0-18.0) g/dl Hct 45.0 (42.0-52.0) % MCV 93.2 (80.0-98.0) fL MCH 31.3 (27.0-33.0) pg MCHC 33.6 (31.0-36.0) g/dl RDW 13.3 (11.0-16.0) % Plt Count 243 (160-400) X10*3/uL MPV 9.8 (9.4-12.4) fL Immature Gran % (Auto) 0.2 (0.0-0.4) % Neut % (Auto) 89.0 H (45-73) % Lymph % (Auto) 8.3 L (20-40) % [place] % (Auto) 1.5 L (2-11) % Eos % (Auto) 0.8 (0-4) % Baso % (Auto) 0.2 (0-2) % Lymph # (Auto) 0.4 L (1.2-4.9) X10*3/uL [place] # (Auto) 0.1 (0.1-1.2) X10*3/uL Eos # (Auto) 0.0 (0.0-0.4) X10*3/uL Baso # (Auto) 0.0 (0.0-0.2) X10*3/uL Abs Immat Gran (auto) 0.01 (0.00-0.03) X10*3/uL Absolute Neuts (auto) 4.7 (2.0-8.3) x10*3/uL Absolute Nucleated RBC 0.000 (0.0-0.012) X10*3/uL Nucleated RBC % (auto) 0.0 (0.0-0.2) /100WBC Sodium 143 (135-145) mmol/L Potassium 4.1 (3.3-5.1) mmol/L Chloride 106 (96-108) mmol/L Carbon Dioxide 30 H (22-29) mmol/L Anion Gap 11 L (12-20) BUN 9 (9-16) mg/dL Creatinine 0.98 (0.5-1.4) mg/dL Estim Creat Clear Calc 68.8 Estimated GFR > 60 Random Glucose 135 H (60-115) mg/dL Calcium 8.8 D (8.4-10.2) mg/dL Total Bilirubin 0.7 (0.0-1.0) mg/dL AST 45 H (5-37) U/L ALT 39 (0-40) U/L Alkaline Phosphatase 58 (39-117) U/L Total Protein 6.9 (6.5-8.0) g/dL Albumin 4.0 (3.5-5.0) g/dL COVID-19 ([facility]) Negative (Negative) COVID-19 Clin Com See Note Discharge Plan Discharge Clinical Impression: Asthma with acute exacerbation Patient Disposition: Home, Self-Care Instructions: Asthma (ED) Additional Instructions: I have prescribed you Flovent as well as an albuterol inhaler. Flovent is a preventative medicine that you should take daily that will help you with your asthma Please use your albuterol inhaler, 2 puffs every 4 hours for the next few days. Please start prednisone tomorrow. You have had your dose of prednisone like medication here in the emergency room. Please call [facility] at for an appointment to establish with a primary care provider. I have referred you as well so they should be aware of you. You need a PCP because you need to manage your asthma better Return to the emergency room if you have shortness of breath, chest pain, fevers , or any other new or concerning symptoms. Le he recetado Flovent y un inhalador de albuterol. Flovent es un medicamento preventivo que debes brandee a diario que te ayudar? con tu asma Utilice joya inhalador de albuterol, 2 inhalaciones cada 4 horas mathew los pr?ximos d?as. Por favor, empiece con prednisona ma?hira. Ortega recibido joya dosis de prednisona yoko medicamento aqu? en la bay de emergencias. Llame al [facility] al para programar shari angela con un proveedor de atenci?n primaria. Tambi?n te he referido a ti, as? que deber?an estar al tanto de ti. Necesita un PCP porque necesita controlar mejor joya asma Regrese a la bay de emergencias si tiene dificultad para respirar, dolor en el pecho, fiebre o cualquier otro s?ntoma nuevo o preocupante. Prescriptions: New Flovent HFA 110 mcg/actuation HFA aerosol inhaler 1 puff inhalation BID Qty: 12 0RF albuterol sulfate 90 mcg/actuation HFA aerosol inhaler 2 puff inhalation Q4-6H PRN (Reason: shortness of breath or wheezing) Qty: 8.5 1RF prednisone 20 mg tablet 60 mg PO DAILY 5 Days Qty: 15 0RF No Action albuterol sulfate 90 mcg/actuation HFA aerosol inhaler 2 puff inhalation Q6H PRN (Reason: shortness of breath or wheezing) Qty: 8.5 0RF (DME) Aeroneb Go Nebulizer Misc See Rx Instructions .Route Qty: 1 0RF Rx Instructions: As directed prednisone 20 mg tablet 60 mg PO DAILY 5 Days Qty: 15 0RF albuterol sulfate 90 mcg/actuation aero powdr breath act w/sensor 1 inh inhalation Q6H PRN (Reason: shortness of breath or wheezing) Qty: 1 0RF dextromethorphan-guaifenesin 10-100 mg/5 mL Syrup 10 ml PO Q6H PRN (Reason: cough) Qty: 240 0RF azithromycin 500 mg Tablet 500 mg PO Q24H Qty: 4 0RF prednisone 20 mg tablet 20 mg PO DAILY Qty: 5 0RF Rx Instructions: take with food albuterol sulfate 90 mcg/actuation HFA aerosol inhaler 2 puff inhalation Q4-6H PRN (Reason: shortness of breath or wheezing) Qty: 8.5 0RF Referrals: [facility] [Primary Care Provider] - 2 days (pt needs PCP for asthma management) Print Language: [place]
[2021-03-31] MEDS: 0.9 % Sodium Chloride 1,000 ML 999 ML IV (11:50)
[2021-03-31] MEDS: methylPREDNISolone Sod Succ 125 MG/2 ML VIAL IVPUSH (11:50)
[2021-03-31] MEDS: Albuterol/Iprat 2.5/0.5MG 3 ML AMPUL.NEB INHALE (12:02)
[2021-03-31 12:05] VITALS: PULSE 68; RESP 18; O2SAT 97
[2021-03-31 12:34] VITALS: BP 149/78; PULSE 70; RESP 17; TEMP 36.8; O2SAT 96
[2021-03-31 12:55] LABS: MANUAL DIFF FLAG NO
[2021-03-31 13:08] LABS: Basophils Percent Auto 0.2 % (0-2); Eosinophils Percent Auto 0.8 % (0-4); Hemoglobin 15.1 g/dl (14.0-18.0); Imm Gran Abs Auto 0.01 X10*3/uL (0.00-0.03); Imm Gran Pct Auto 0.2 % (0.0-0.4); Lymphocytes Absolute Auto 0.4 X10*3/uL (1.2-4.9); Lymphocytes Percent Auto 8.3 % (20-40); Mean Corpuscular HGB Conc 33.6 g/dl (31.0-36.0); Mean Corpuscular Hemoglobin 31.3 pg (27.0-33.0); Mean Corpuscular Volume 93.2 fL (80.0-98.0); Mean Platelet Volume 9.8 fL (9.4-12.4); Monocytes Absolute Auto 0.1 X10*3/uL (0.1-1.2); Monocytes Percent Auto 1.5 % (2-11); Neutrophils Absolute Auto 4.7 x10*3/uL (2.0-8.3); Platelet Count 243 X10*3/uL (160-400); Red Blood Count 4.83 X10*6/uL (4.60-5.80); Red Cell Distribution Width 13.3 % (11.0-16.0); White Blood Count 5.3 X10*3/uL (4.8-10.8)
[2021-03-31 13:16] LABS: Alanine Aminotransferase 39 U/L (0-40); Alkaline Phosphatase 58 U/L (39-117); Anion Gap 11 (12-20); Aspartate Amino Transferase 45 U/L (5-37); Bilirubin Total 0.7 mg/dL (0.0-1.0); Blood Urea Nitrogen 9 mg/dL (9-16); Calcium 8.8 mg/dL (8.4-10.2); Carbon Dioxide 30 mmol/L (22-29); Chloride 106 mmol/L (96-108); Creatinine Clr Calc Pharmacy 68.8; Estimated Glomerular Filt Rate > 60; Glucose Random 135 mg/dL (60-115); Potassium 4.1 mmol/L (3.3-5.1); Sodium 143 mmol/L (135-145); Total Protein 6.9 g/dL (6.5-8.0)
[2021-03-31 13:22] LABS: COVID-19 Test Negative (Negative); IDNOW Serial# 9DD0AD1C
== END 2021-03-31 14:08 | disposition home or self-care (01) ==
PROVIDERS: Physician Assistant; Emergency Provider Emergency Medicine
DX: J45.901 Unspecified asthma with (acute) exacerbation (principal); Z20.822 Contact with and (suspected) exposure to COVID-19
CPT/HCPCS: 71046; 80053; 85025; 87635; 94640; 96361; 96374; 99284; J2930

== ENCOUNTER 2022-01-30 03:15 | Emergency (ER) | payer MEDICAID, SELFPAY ==
--- NOTE | ~2022-01-30 | XR_ITS ---
EXAMINATION: XR CHEST CLINICAL INFORMATION: Shortness of breath. COMPARISON: Chest radiograph 03/31/2021. TECHNIQUE: Frontal view of the chest was obtained. FINDINGS: Normal appearance of the cardiomediastinal structures. No effusions or pneumothoraces. Biapical chronic pleural parenchymal scarring noted. No focal pulmonary consolidation visualized. Of note, a skinfold overlies the upper lung zones bilaterally. XR/XR chest 1V IMPRESSION: *No acute cardiopulmonary abnormalities identified. *Chronic biapical pleural parenchymal scarring of the lungs.
[2022-01-30 03:17] VITALS: BP 131/89; PULSE 109; RESP 20; TEMP 37.1; O2SAT 94; BMI 23.3
--- NOTE | 2022-01-30 03:22 | ECG_ITS ---
Test Reason : SOB Blood Pressure : / mmHG Vent. Rate : 097 BPM Atrial Rate : 097 BPM P-R Int : 160 ms QRS Dur : 090 ms QT Int : 360 ms P-R-T Axes : 080 -58 044 degrees QTc Int : 457 ms Sinus rhythm with Premature supraventricular complexes Right atrial enlargement Pulmonary disease pattern Left anterior fascicular block Moderate voltage criteria for LVH, may be normal variant ( Sokolow-Chong , Kapil product ) Septal infarct , age undetermined Cannot rule out Inferior infarct (cited on or before 30-JAN-2022) Abnormal ECG When compared with ECG of 09-JAN-2021 19:45, Premature supraventricular complexes are now Present Septal infarct is now Present Questionable change in initial forces of Inferior leads Referred By: Generic ED Physician Electronically Signed By:ADA GRANT MD
[2022-01-30 03:36] LABS: Basophils Percent Auto 0.4 % (0-2); Eosinophils Absolute Auto 0.6 X10*3/uL (0.0-0.4); Eosinophils Percent Auto 7.1 % (0-4); Hematocrit 49.4 % (42.0-52.0); Hemoglobin 16.9 g/dl (14.0-18.0); Imm Gran Abs Auto 0.01 X10*3/uL (0.00-0.03); Imm Gran Pct Auto 0.1 % (0.0-0.4); Lymphocytes Absolute Auto 1.8 X10*3/uL (1.2-4.9); Lymphocytes Percent Auto 22.8 % (20-40); MANUAL DIFF FLAG NO; Mean Corpuscular HGB Conc 34.2 g/dl (31.0-36.0); Mean Corpuscular Hemoglobin 31.5 pg (27.0-33.0); Mean Platelet Volume 9.7 fL (9.4-12.4); Monocytes Absolute Auto 0.8 X10*3/uL (0.1-1.2); Monocytes Percent Auto 9.9 % (2-11); Neutrophils Absolute Auto 4.7 x10*3/uL (2.0-8.3); Neutrophils Percent Auto 59.7 % (45-73); Platelet Count 246 X10*3/uL (160-400); Red Blood Count 5.37 X10*6/uL (4.60-5.80); Red Cell Distribution Width 12.6 % (11.0-16.0); White Blood Count 7.9 X10*3/uL (4.8-10.8)
[2022-01-30 03:37] VITALS: BP 155/82; PULSE 102; RESP 20; TEMP 36.7; O2SAT 94
[2022-01-30 03:48] LABS: Anion Gap 16 (12-20); Blood Urea Nitrogen 18 mg/dL (9-16); Calcium 9.7 mg/dL (8.4-10.2); Carbon Dioxide 28 mmol/L (22-29); Chloride 100 mmol/L (96-108); Creatinine Clr Calc Pharmacy 56.9; Estimated Glomerular Filt Rate > 60; Glucose Random 142 mg/dL (60-115); Potassium 4.5 mmol/L (3.3-5.1); Sodium 139 mmol/L (135-145)
[2022-01-30 03:55] LABS: B Type Natriuretic Peptide 62 pg/mL (<100)
[2022-01-30 04:02] LABS: Troponin-I High Sensitivity 3.4 ng/L (<3.5-35.0)
[2022-01-30 04:13] LABS: Influenza A PCR NEGATIVE (Negative); Influenza B PCR NEGATIVE (Negative); Resp Syncy Virus RNA Qual PCR NEGATIVE (Negative); SARS COV2 PCR INHOUSE NEGATIVE (Negative)
[2022-01-30] MEDS: predniSONE 20 MG TABLET 60 MG PO (05:16)
[2022-01-30] MEDS: Albuterol Sulfate 2.5 MG, Albuterol Sulfate (0.083%) 2.5 MG 5 MG INHALE (05:53)
[2022-01-30] MEDS: Albuterol/Iprat 2.5/0.5MG 3 ML AMPUL.NEB INHALE (05:54)
--- NOTE | 2022-01-30 06:02 | ED.SOB ---
HPI - SOB/Dyspnea General Chief Complaint: Dyspnea Stated Complaint: SOB, asthma Time Seen by Provider: 01/30/22 03:47 Source: patient Mode of arrival: ambulatory Limitations: no limitations History of Present Illness HPI Narrative: 61-year-old male history of asthma presented with a week of wheezing and shortness of breath. Patient has no fever or chills, sporadic dry coughing with no sputum. No recent travel or prolonged immobilization or lower extremity swelling. Related Data Previous Rx's Medication Instructions Recorded albuterol sulfate 90 mcg/actuation 2 puff inhalation Q6H PRN 01/09/21 aerosol inhaler shortness of breath or wheezing #8.5 grams nebulizers (Aeroneb Go Nebulizer) #1 ea 01/09/21 albuterol sulfate 90 mcg/actuation 2 puff inhalation Q4-6H PRN 02/18/21 aerosol inhaler shortness of breath or wheezing #8.5 grams azithromycin 500 mg tablet 500 mg PO Q24H #4 tabs 02/18/21 dextromethorphan-guaifenesin 10 10 ml PO Q6H PRN cough #240 mL 02/18/21 mg-100 mg/5 mL oral syrup prednisone 20 mg tablet 20 mg PO DAILY #5 tabs 02/18/21 albuterol sulfate 90 mcg/actuation 1 inh inhalation Q6H PRN shortness 02/28/21 breath activated powder of breath or wheezing #1 ea inhaler,sensor prednisone 20 mg tablet 60 mg PO DAILY Asthma 5 days #15 02/28/21 tabs albuterol sulfate 90 mcg/actuation 2 puff inhalation Q4-6H PRN 03/31/21 aerosol inhaler shortness of breath or wheezing #8.5 grams fluticasone propionate 110 1 puff inhalation BID #12 grams 03/31/21 mcg/actuation HFA aerosol inhaler (Flovent HFA) prednisone 20 mg tablet 60 mg PO DAILY 5 days #15 tabs 03/31/21 albuterol sulfate 90 mcg/actuation 1 inh inhalation QID PRN shortness 01/30/22 aerosol inhaler of breath or wheezing #8.5 grams prednisone 20 mg tablet 20 mg PO BID #10 tabs 01/30/22 Allergies Allergy/AdvReac Type Severity Reaction Status Date / Time crab Allergy Severe SWELLING/RA Verified 01/30/22 03:21 SH Review of Systems Review of Systems: All other systems are reviewed and are negative Constitutional: Reports as per HPI and Reports no additional constitutional complaints Eyes: Reports as per HPI and Reports no additional eye complaints Reports system reviewed and no additional complaints, except as documented Cardiovascular: Reports as per HPI and Reports no additional cardiovascular complaints Respiratory: Reports as per HPI and Reports no additional respiratory complaints Gastrointestinal: Reports as per HPI and Reports no additional gastrointestinal complaints Genitourinary: Reports no additional female genitourinary complaints Musculoskeletal: Reports no additional musculoskeletal complaints Skin/Breast: Reports system reviewed and no additional complaints, except as docu Psychiatric: Reports no additional psychiatric complaints Endocrine: Reports no additional endocrine complaints Hematologic/Lymphatic: Reports no additional hematologic/lymphatic complaints Allergic/Immunologic: Reports no additional allergic/immunologic complaints Reports system reviewed and no additional complaints, except as documented and Reports Abnormal speech present [facility] Past Medical History Medical History Alcohol abuse Asthma Asthma HCV (hepatitis C virus) Surgical History No pertinent past surgical history Social History Social History Household Members: None Housing: Apartment Do you presently have visiting nurse or other home services: No Alcohol intake: current Alcohol intake frequency: 3 or more drinks per day Alcohol type: hard liquor Patient Tobacco Use Status: Never used Tobacco Substance Use Type: Crack/Cocaine Advance Directives: Yes Advance Directives on File: Yes Advance Directives Date on File: 01/24/20 service: No Current occupational status: unemployed Physical Exam Vital Signs: Vital Signs: Last Vital Signs Temp 98.0 F 01/30/22 03:37 Pulse 102 H 01/30/22 03:37 Resp 20 01/30/22 03:37 BP 155/82 H 01/30/22 03:37 Pulse Ox 94 01/30/22 03:37 O2 Del Method 01/30/22 03:37 BMI result Body Mass Index 23.3 Vital signs have been reviewed as appeared to be correct. Blood pressure normal. Heart rate normal. Respiration rate normal. Temperature normal. Oxygen saturation normal. Appearance: Alert. Oriented X3. No acute distress. Head: Normal external exam. Normocephalic. Atraumatic. No Chavez signs noted. No raccoon eyes noted Eyes: PERRLA. EOMI. Conjunctiva and sclera normal. Eyelids normal. ENT: TM's Normal. Pharynx normal. Uvula midline. Moist mucous membranes. No trismus noted. No drooling noted. No muffled voice noted. Neck: Normal inspection. Neck supple. FROM. No adenopathy. Thyroid Normal. No meningeal signs. No neck mass noted. CVS: Normal heart rate and rhythm. Heart sound normal. No murmurs noted. Pulses normal throughout. Respiratory: No respiratory distress. Painless inspiration. Breath sounds normal. Diffuse mild expiratory wheezing, prolonged expiration noted. Chest nontender. No accessory muscle usage noted or decreased air movement noted. Abdomen: Soft and nontender. Bowel sounds normal in all 4 quadrants. No distention noted. No organomegaly noted. No visible injury noted. Back: No CVA tenderness. Full range of motion noted. Skin: Skin warm and dry. Normal skin color. Normal skin turgor. No rashes/lesions/lacerations noted. Extremities: No lower extremity edema. Extremities exhibit normal range of motion. Extremities nontender. Neuro: Oriented X 3. Cranial nerve exam: II-XII are grossly intact No motor deficit. No sensory deficit. Reflexes normal. Course Course Course Narrative: 61-year-old male with history of asthma presented with acute asthma exacerbation. Patient with stable vital sign no hypoxia no tachypnea improved after was started on prednisone in the ED will discharge the patient on bronchodilator/prednisone. Medications Administered Discontinued Medications Generic Name Dose Route Start Last Admin Trade Name Freq PRN Reason Stop Dose Admin Albuterol Sulfate 2.5 mg/ 5 mg 01/30/22 04:07 01/30/22 05:53 Albuterol Sulfate 2.5 mg INHALE 01/30/22 04:08 5 mg ONCE ONE Administration Albuterol/Ipratropium 3 ml 01/30/22 04:07 01/30/22 05:54 Albuterol/Iprat 2.5/0.5mg 3 Ml Ampul.Neb INHALE 01/30/22 04:08 3 ml ONCE ONE Administration Prednisone 60 mg 01/30/22 04:07 01/30/22 05:16 Prednisone 20 Mg Tablet PO 01/30/22 04:08 60 mg ONCE ONE Administration Medical Decision Making Medical Decision Making Differential Diagnoses: Differential diagnosis Differential Diagnosis: The differential diagnosis associated with the patient?s presentation includes: Acute asthma exacerbation, pneumonia, CHF. Lab Attestation: I reviewed the patient's lab results. Independent interpretation of EKG, rhythm strip, radiology study: Independent interp EKG,rhythm strip, radiology study I performed an independent interpretation of the: Plain X-Ray (Chest) My interpretation is no acute intrathoracic pathology Discussion of test interpretation with radiology: Discussion of test interpretation with radiology Discussed with radiology regarding test interpretation. Discharge Plan Discharge Clinical Impression: Asthma with exacerbation Patient Disposition: Home, Self-Care Instructions: Asthma (ED) Prescriptions: New albuterol sulfate 90 mcg/actuation HFA aerosol inhaler 1 inh inhalation QID PRN (Reason: shortness of breath or wheezing) Qty: 8.5 0RF prednisone 20 mg tablet 20 mg PO BID Qty: 10 0RF No Action albuterol sulfate 90 mcg/actuation HFA aerosol inhaler 2 puff inhalation Q6H PRN (Reason: shortness of breath or wheezing) Qty: 8.5 0RF (DME) Aeroneb Go Nebulizer Misc See Rx Instructions .Route Qty: 1 0RF Rx Instructions: As directed prednisone 20 mg tablet 60 mg PO DAILY 5 Days Qty: 15 0RF albuterol sulfate 90 mcg/actuation aero powdr breath act w/sensor 1 inh inhalation Q6H PRN (Reason: shortness of breath or wheezing) Qty: 1 0RF dextromethorphan-guaifenesin 10-100 mg/5 mL Syrup 10 ml PO Q6H PRN (Reason: cough) Qty: 240 0RF azithromycin 500 mg Tablet 500 mg PO Q24H Qty: 4 0RF prednisone 20 mg tablet 20 mg PO DAILY Qty: 5 0RF Rx Instructions: take with food albuterol sulfate 90 mcg/actuation HFA aerosol inhaler 2 puff inhalation Q4-6H PRN (Reason: shortness of breath or wheezing) Qty: 8.5 0RF Flovent HFA 110 mcg/actuation HFA aerosol inhaler 1 puff inhalation BID Qty: 12 0RF albuterol sulfate 90 mcg/actuation HFA aerosol inhaler 2 puff inhalation Q4-6H PRN (Reason: shortness of breath or wheezing) Qty: 8.5 1RF prednisone 20 mg tablet 60 mg PO DAILY 5 Days Qty: 15 0RF Referrals: [facility] [Primary Care Provider] -
[2022-01-30 06:22] VITALS: BP 153/80; PULSE 94; RESP 19; O2SAT 99
== END 2022-01-30 07:17 | disposition home or self-care (01) ==
PROVIDERS: Emergency Provider Emergency Medicine
DX: J45.901 Unspecified asthma with (acute) exacerbation (principal); R06.02 Shortness of breath; Z20.822 Contact with and (suspected) exposure to COVID-19; Z79.899 Other long term (current) drug therapy
CPT/HCPCS: 0241U; 36415; 71045; 80048; 83880; 84484; 85025; 93005; 99284

== ENCOUNTER 2022-02-07 10:37 | Emergency (ER) | payer MEDICAID, SELFPAY ==
--- NOTE | ~2022-02-07 | XR_ITS ---
EXAMINATION: XR CHEST CLINICAL INFORMATION: Asthma COMPARISON: Examination of 8 days previous. March 2021. TECHNIQUE: Frontal view of the chest was obtained. 10:55 AM. FINDINGS: No new airspace consolidation or vascular congestion. The hilar regions appear stable. No distinct pleural effusions. Previously noted upper lobe region reticular markings and subtle small nodular opacities toward the right upper lobe not significantly changed. XR/XR chest 1V IMPRESSION: No new focal infiltrates or effusions. Chronic changes in the upper lungs and small right upper lobe nodularity not appreciably changed.
[2022-02-07 10:46] VITALS: BP 135/90; PULSE 99; RESP 18; TEMP 36.9; O2SAT 95; BMI 23.3
--- NOTE | 2022-02-07 11:22 | ED.ASTHMA ---
HPI - Asthma General Chief Complaint: Asthma Stated Complaint: asthma Time Seen by Provider: 02/07/22 11:19 Source: patient Mode of arrival: ambulatory Limitations: no limitations History of Present Illness HPI Narrative: 61 yo male with history of HCV, ETOH use and withdrawal in the past, history of asthma who presents to the ER c/o asthma symptoms for the last 3 days. He has been using his inhaler with minimal relief. He states he has been coughing a lot which is making his asthma worse. He states he is a nonsmoker and is not around 2nd hand smoke. His asthma tends to worse when he is sick. He has not been around anyone who has been ill. He denies any fevers, chills, chest pain, difficulty breathing, N/V/D or abdominal pain. MD complaint: asthma attack and wheezing Onset (ago): day(s) (3) Severity: moderate and similar to prior Context: none known Associated symptoms: dry cough Asthma History: history of prior ED visit Treatments Prior to Arrival: inhaled bronchodilator Related Data Current Asthma Therapy: inhaled bronchodilator Previous Rx's Medication Instructions Recorded albuterol sulfate 90 mcg/actuation 2 puff inhalation Q6H PRN 01/09/21 aerosol inhaler shortness of breath or wheezing #8.5 grams nebulizers (Aeroneb Go Nebulizer) #1 ea 01/09/21 albuterol sulfate 90 mcg/actuation 2 puff inhalation Q4-6H PRN 02/18/21 aerosol inhaler shortness of breath or wheezing #8.5 grams azithromycin 500 mg tablet 500 mg PO Q24H #4 tabs 02/18/21 dextromethorphan-guaifenesin 10 10 ml PO Q6H PRN cough #240 mL 02/18/21 mg-100 mg/5 mL oral syrup prednisone 20 mg tablet 20 mg PO DAILY #5 tabs 02/18/21 albuterol sulfate 90 mcg/actuation 1 inh inhalation Q6H PRN shortness 02/28/21 breath activated powder of breath or wheezing #1 ea inhaler,sensor prednisone 20 mg tablet 60 mg PO DAILY Asthma 5 days #15 02/28/21 tabs albuterol sulfate 90 mcg/actuation 2 puff inhalation Q4-6H PRN 03/31/21 aerosol inhaler shortness of breath or wheezing #8.5 grams fluticasone propionate 110 1 puff inhalation BID #12 grams 03/31/21 mcg/actuation HFA aerosol inhaler (Flovent HFA) prednisone 20 mg tablet 60 mg PO DAILY 5 days #15 tabs 03/31/21 albuterol sulfate 90 mcg/actuation 1 inh inhalation QID PRN shortness 01/30/22 aerosol inhaler of breath or wheezing #8.5 grams prednisone 20 mg tablet 20 mg PO BID #10 tabs 01/30/22 azithromycin 250 mg tablet See Rx Instructions PO .COMPLEX #6 02/07/22 (Zithromax Z-Roderick) tabs guaifenesin 1,200 mg tablet, 1,200 mg PO Q12H #10 tabs 02/07/22 extended release 12 hr (Mucinex) prednisone 20 mg tablet 40 mg PO DAILY #10 tabs 02/07/22 Allergies Allergy/AdvReac Type Severity Reaction Status Date / Time crab Allergy Severe SWELLING/RA Verified 01/30/22 03:21 Review of Systems Review of Systems: Constitutional: No Fever, No Chills ENT/Mouth: No sore throat, No Rhinorrhea Cardiovascular: No Chest Pain, +SOB, No Orthopnea, No Edema Respiratory: + Cough, No Sputum, + Wheezing, No dyspnea Gastrointestinal: No Nausea, No Vomiting, No Diarrhea, No abdominal Pain Musculoskeletal: No joint pain, +Myalgias Skin: No Skin Lesions, No rash Neuro: No Weakness, No Dizziness, No Headache Psych: No Anxiety/Panic Heme/Lymph: No Bruising, No Lymphadenopathy PMFSH Past Medical History Medical History Alcohol abuse Asthma Asthma HCV (hepatitis C virus) Surgical History No pertinent past surgical history Social History Social History Household Members: None Housing: Apartment Do you presently have visiting nurse or other home services: No Alcohol intake: current Alcohol intake frequency: 3 or more drinks per day Alcohol type: hard liquor Patient Tobacco Use Status: Never used Tobacco Substance Use Type: Crack/Cocaine Advance Directives: Yes Advance Directives on File: Yes Advance Directives Date on File: 01/24/20 service: No Current occupational status: unemployed Physical Exam Vital Signs: Vital Signs: Last Vital Signs Temp 98.5 F 02/07/22 10:46 Pulse 92 02/07/22 11:51 Resp 18 02/07/22 11:51 BP 135/90 H 02/07/22 10:46 Pulse Ox 95 02/07/22 10:46 O2 Del Method 02/07/22 10:46 BMI result Body Mass Index 23.3 Appearance: Alert. Oriented X3. No acute distress. Eyes: Pupils equal, round and reactive to light. ENT: Pharynx normal. Neck: Normal inspection. Neck supple. CVS: Normal heart rate and rhythm. Pulses normal. Respiratory: No respiratory distress. Breath sounds with diffuse expriatory wheezes throughout. able to speak in complete sentences. Skin: Skin warm and dry. Normal skin color. Normal skin turgor. No rashes. Extremities: No lower extremity edema. Neuro: Oriented X 3. nonfocal Course Course Course Narrative: 61 yo male with history of asthma presenting with 3 days of cough and wheezing. Diffusely wheezy but not in any respiratory distress and saturating well. CXR and viral swabs pending. Will give 10 mg albuterol and oral prednisoen now and reassess. Reevaluation(s) Reevaluation #1: CXR without PNA. COVID and Flu are negative. He is feeling much better after neb. Aeration improved but still somewhat wheezy. He was offered a 2nd treatment but feels better and would like to be discharged. Comfortable with d/c home with prednisone, PRN albuterol and z-pack for bronchitis. Given return precautions. Stable for d/c. Medications Administered Discontinued Medications Generic Name Dose Route Start Last Admin Trade Name Freq PRN Reason Stop Dose Admin Albuterol Sulfate 7.5 mg/ 10 mg 02/07/22 11:21 02/07/22 11:47 Albuterol Sulfate 2.5 mg INHALE 02/07/22 11:22 10 mg ONCE ONE Administration Prednisone 60 mg 02/07/22 11:21 02/07/22 12:00 Prednisone 20 Mg Tablet PO 02/07/22 11:22 60 mg ONCE ONE Administration Medical Decision Making Lab Data Labs: Lab Results 02/07/22 02/07/22 Range/Units 10:53 10:53 COVID-19 (HENRY) Negative (Negative) COVID-19 Clin Com See Note Influenza Type A (MIRELLA) Negative (Negative) Influenza Type B (MIRELLA) Negative (Negative) Influenza A & B Note See Note Discharge Plan Discharge Clinical Impression: Asthma with acute exacerbation, Bronchitis Patient Disposition: Home, Self-Care Instructions: Asthma (ED), Acute Bronchitis (ED) Additional Instructions: Your x-ray showed NO pneumonia. You are negative for COVID and Flu. Take the prescribed medications as directed. Continue to use your inhaler every few hours as needed for wheezing. Follow up with your doctor. Prescriptions: New prednisone 20 mg tablet 40 mg PO DAILY Qty: 10 0RF azithromycin [Zithromax Z-Roderick] 250 mg tablet See Rx Instructions .ROUTE .COMPLEX Qty: 6 0RF Rx Instructions: take 500 mg today (day 1), then 250 mg for 4 days (days 2-5) Mucinex 1,200 mg tablet extended release 12hr 1,200 mg PO Q12H Qty: 10 0RF No Action albuterol sulfate 90 mcg/actuation HFA aerosol inhaler 2 puff inhalation Q6H PRN (Reason: shortness of breath or wheezing) Qty: 8.5 0RF (DME) Aeroneb Go Nebulizer Misc See Rx Instructions .Route Qty: 1 0RF Rx Instructions: As directed prednisone 20 mg tablet 60 mg PO DAILY 5 Days Qty: 15 0RF albuterol sulfate 90 mcg/actuation aero powdr breath act w/sensor 1 inh inhalation Q6H PRN (Reason: shortness of breath or wheezing) Qty: 1 0RF albuterol sulfate 90 mcg/actuation HFA aerosol inhaler 1 inh inhalation QID PRN (Reason: shortness of breath or wheezing) Qty: 8.5 0RF prednisone 20 mg tablet 20 mg PO BID Qty: 10 0RF dextromethorphan-guaifenesin 10-100 mg/5 mL Syrup 10 ml PO Q6H PRN (Reason: cough) Qty: 240 0RF azithromycin 500 mg Tablet 500 mg PO Q24H Qty: 4 0RF prednisone 20 mg tablet 20 mg PO DAILY Qty: 5 0RF Rx Instructions: take with food albuterol sulfate 90 mcg/actuation HFA aerosol inhaler 2 puff inhalation Q4-6H PRN (Reason: shortness of breath or wheezing) Qty: 8.5 0RF Flovent HFA 110 mcg/actuation HFA aerosol inhaler 1 puff inhalation BID Qty: 12 0RF albuterol sulfate 90 mcg/actuation HFA aerosol inhaler 2 puff inhalation Q4-6H PRN (Reason: shortness of breath or wheezing) Qty: 8.5 1RF prednisone 20 mg tablet 60 mg PO DAILY 5 Days Qty: 15 0RF Referrals: [place] [Primary Care Provider] - Discharge Date/Time: 02/07/22 12:37 Print Language: Kinyarwanda
[2022-02-07 11:26] LABS: COVID-19 Test Negative (Negative); IDNOW Serial# 16C4AD1C; IDNOW Serial# 9DB6401D; Influenza A Negative (Negative); Influenza B2 Negative (Negative)
[2022-02-07] MEDS: Albuterol Sulfate 7.5 MG, Albuterol Sulfate (0.083%) 2.5 MG 10 MG INHALE (11:47)
[2022-02-07 11:51] VITALS: PULSE 92; RESP 18; O2SAT 97
[2022-02-07] MEDS: predniSONE 20 MG TABLET 60 MG PO (12:00)
== END 2022-02-07 12:37 | disposition home or self-care (01) ==
PROVIDERS: Emergency Provider Student in an Organized Health Care Education/Training Program
DX: J45.901 Unspecified asthma with (acute) exacerbation (principal); Z20.822 Contact with and (suspected) exposure to COVID-19; Z79.899 Other long term (current) drug therapy
CPT/HCPCS: 71045; 87502; 87635; 94640; 99283; 99284

== ENCOUNTER 2022-02-26 11:03 | Emergency (ER) | payer MEDICAID, SELFPAY ==
--- NOTE | ~2022-02-26 | XR_ITS ---
EXAMINATION: XR CHEST CLINICAL INFORMATION: Shortness of breath. History asthma. COMPARISON: Chest radiographs 02/07/2022, 01/30/2022, 03/31/2021, 02/28/2021 TECHNIQUE: Frontal view of the chest was obtained. FINDINGS: Cardiopulmonary appearance is similar to prior studies. There is mild hyperinflation with chronic mild coarsening bronchiolar markings upper zones and some subtle reticulonodular changes as before. There is no interval lobar or segmental airspace consolidation or definite groundglass opacity. No effusion. The heart is normal in size. The vascularity is normal. No pneumothorax or pneumomediastinum. XR/XR chest 1V IMPRESSION: -Chronic appearing changes similar to prior exams. -No acute intrathoracic disease.
[2022-02-26 11:08] VITALS: BP 133/80; PULSE 99; RESP 20; TEMP 37.2; O2SAT 94; BMI 24.1
--- NOTE | 2022-02-26 11:11 | ECG_ITS ---
Test Reason : SOB Blood Pressure : / mmHG Vent. Rate : 078 BPM Atrial Rate : 078 BPM P-R Int : 156 ms QRS Dur : 088 ms QT Int : 374 ms P-R-T Axes : 081 -55 -24 degrees QTc Int : 426 ms Normal sinus rhythm Left anterior fascicular block Moderate voltage criteria for LVH, may be normal variant ( Sokolow-Chong , [place] product ) Anteroseptal infarct (cited on or before 30-JAN-2022) Abnormal ECG When compared with ECG of 30-JAN-2022 03:47, T wave inversion now evident in Inferior leads Referred By: Alina Guaman Electronically Signed By:KRISTOPHER MINA
--- NOTE | 2022-02-26 11:16 | ED_ITS ---
HPI - SOB/Dyspnea General Chief Complaint: Dyspnea <SILVINO Brandon - Last Filed: 02/26/22 11:23> Stated Complaint: Asthma <SILVINO Brandon - Last Filed: 02/26/22 11:23> Time Seen by Provider: 02/26/22 13:55 <SILVINO Brandon - Last Filed: 02/26/22 11:23> Source: patient <Anyi Jiang CNP - Last Filed: 02/26/22 16:03> Mode of arrival: ambulatory <Anyi Jiang CNP - Last Filed: 02/26/22 16:03> Limitations: no limitations <Anyi Jiang CNP - Last Filed: 02/26/22 16:03> History of Present Illness HPI Narrative: Patient is a 61-year-old male who presents to emergency department for evaluation of shortness of breath, nonproductive cough, and wheezing. Reports symptom onset to be about 4 days ago. He has no uteri inhaler but states this has not been helping overall. He denies fevers, chills, nasal congestion, sore throat, chest pain, palpitations, dizziness, lightheadedness, nausea, vomiting, abdominal pain. Denies any known sick contacts. <Anyi Jiang CNP - Last Filed: 02/26/22 16:03> Related Data Home Medications: Previous Rx's Medication Instructions Recorded albuterol sulfate 90 mcg/actuation 2 puff inhalation Q6H PRN 01/09/21 aerosol inhaler shortness of breath or wheezing #8.5 grams nebulizers (Aeroneb Go Nebulizer) #1 ea 01/09/21 albuterol sulfate 90 mcg/actuation 2 puff inhalation Q4-6H PRN 02/18/21 aerosol inhaler shortness of breath or wheezing #8.5 grams azithromycin 500 mg tablet 500 mg PO Q24H #4 tabs 02/18/21 dextromethorphan-guaifenesin 10 10 ml PO Q6H PRN cough #240 mL 02/18/21 mg-100 mg/5 mL oral syrup prednisone 20 mg tablet 20 mg PO DAILY #5 tabs 02/18/21 albuterol sulfate 90 mcg/actuation 1 inh inhalation Q6H PRN shortness 02/28/21 breath activated powder of breath or wheezing #1 ea inhaler,sensor prednisone 20 mg tablet 60 mg PO DAILY Asthma 5 days #15 02/28/21 tabs albuterol sulfate 90 mcg/actuation 2 puff inhalation Q4-6H PRN 03/31/21 aerosol inhaler shortness of breath or wheezing #8.5 grams fluticasone propionate 110 1 puff inhalation BID #12 grams 03/31/21 mcg/actuation HFA aerosol inhaler (Flovent HFA) prednisone 20 mg tablet 60 mg PO DAILY 5 days #15 tabs 03/31/21 albuterol sulfate 90 mcg/actuation 1 inh inhalation QID PRN shortness 01/30/22 aerosol inhaler of breath or wheezing #8.5 grams prednisone 20 mg tablet 20 mg PO BID #10 tabs 01/30/22 azithromycin 250 mg tablet See Rx Instructions PO .COMPLEX #6 02/07/22 (Zithromax Z-Roderick) tabs guaifenesin 1,200 mg tablet, 1,200 mg PO Q12H #10 tabs 02/07/22 extended release 12 hr (Mucinex) prednisone 20 mg tablet 40 mg PO DAILY #10 tabs 02/07/22 prednisone 20 mg tablet 40 mg PO DAILY #8 tabs 02/26/22 <SILVINO Brandon - Last Filed: 02/26/22 11:23> Allergies/Adverse Reactions: Allergies Allergy/AdvReac Type Severity Reaction Status Date / Time crab Allergy Severe SWELLING/RA Verified 01/30/22 03:21 SH <SILVINO Brandon - Last Filed: 02/26/22 11:23> Review of Systems Review of Systems: Constitutional : No Fever, No Chills ENT/Mouth : No Hoarseness, No sore throat, No Rhinorrhea Eyes: No Redness, No Discharge, No Vision Changes Cardiovascular : No Chest Pain, positive SOB, positive Dyspnea on Exertion, No Edema Respiratory : positive Cough, No Sputum, positive Wheezing, Gastrointestinal : No Nausea, No Vomiting, No Diarrhea, No abdominal Pain Genitourinary : No Dysuria, No Hematuria Musculoskeletal : No joint pain, No Myalgias Skin : No rash Neuro : No Weakness, No Numbness, No Headache Psych : No anxiety, depression Heme/Lymph: No Bruising, No Bleeding Endocrine : No Polyuria, No Polydipsia <Anyi Jiang CNP - Last Filed: 02/26/22 16:03> Yes all other systems are reviewed and are negative <Anyi Jiang CNP - Last Filed: 02/26/22 16:03> [facility] Past Medical History Attestation statement: The following information was validated with the patient. <Anyi Jiang CNP - Last Filed: 02/26/22 16:03> Source: old records reviewed <Anyi Jiang CNP - Last Filed: 02/26/22 16:03> Medical History: Medical History Alcohol abuse Asthma Asthma HCV (hepatitis C virus) <SILVINO Brandon - Last Filed: 02/26/22 11:23> Surgical History: Surgical History No pertinent past surgical history <SILVINO Brandon - Last Filed: 02/26/22 11:23> Social History Social History: Social History Household Members: None Housing: Apartment Do you presently have visiting nurse or other home services: No Alcohol intake: never Patient Tobacco Use Status: Never used Tobacco Smoked in Last 30 Days: No Use of substances other than those prescribed or required for medical reasons: Yes Substance Use Type: Marijuana Advance Directives: Yes Advance Directives on File: Yes Advance Directives Date on File: 01/24/20 service: No Current occupational status: unemployed <SILVINO Brandon - Last Filed: 02/26/22 11:23> Physical Exam Vital Signs: Vital Signs: Last Vital Signs Temp 98.8 F 02/26/22 14:12 Pulse 71 02/26/22 14:13 Resp 18 02/26/22 14:13 BP 134/82 02/26/22 14:12 Pulse Ox 97 02/26/22 14:12 O2 Del Method 02/26/22 14:12 BMI result Body Mass Index 24.1 <SILVINO Brandon - Last Filed: 02/26/22 11:23> Vital Signs: Last Vital Signs Temp 98.8 F 02/26/22 14:12 Pulse 71 02/26/22 14:13 Resp 18 02/26/22 14:13 BP 134/82 02/26/22 14:12 Pulse Ox 97 02/26/22 14:12 O2 Del Method 02/26/22 14:12 BMI result Body Mass Index 24.1 <Anyi Jiang CNP - Last Filed: 02/26/22 16:03> Appearance: Alert.?Oriented to person, place and time. No acute distress.?Normal affect. Eyes: Pupils equal, round and reactive to light.? ENT: Pharynx normal.?? Neck: Normal inspection.? Neck supple.?? CVS: Heart sounds normal. Normal heart rate and rhythm.? Pulses normal.?? Respiratory: No respiratory distress.? Lung sounds with diffuse expiratory wheezing Abdomen: Soft and non-tender. Normoactive bowel sounds. Skin: Skin warm and dry.? Normal skin color.? Extremities: No lower extremity edema.? No calf ttp? Neuro: Moves all extremities spontaneously. Sensation intact bilaterally. No focal neuro deficits. Ambulates with normal steady gait. <Anyi Jiang CNP - Last Filed: 02/26/22 16:03> Course Course Course Narrative: RME--61-year-old male with past medical history of asthma complaining of shortness of breath, cough, and wheezing x1 week. Reports albuterol inhaler has not been working Diffuse expiratory wheeze noted on exam EKG, labs, CXR, COVID19/influenza/RSV, IV Solu-Medrol, DuoNeb <SILVINO Brandon - Last Filed: 02/26/22 11:23> Reevaluation(s) Reevaluation #1: Chest x-ray without evidence of pneumonia, no acute cardiopulmonary findings. Testing for COVID-19, influenza, and RSV are negative. CBC is overall unremarkable, no leukocytosis. BMP is overall unremarkable. Troponin 5.5, EKG revealing normal sinus rhythm with left anterior fascicular block, no ST elevation, ST depression, does not appear to have acute ischemic findings when compared to prior EKG from January 2022, low suspicion for ACS at this time. Patient reporting symptomatic improvement after nebulizer treatment. He remains without any respiratory distress, vital signs are stable. No hypoxia or tachypnea. At this time will discharge patient home with prescription for prednisone to use in addition to albuterol inhaler for asthma exacerbation. Discussed worrisome signs and symptoms that would warrant re-evaluation in the emergency department, advised outpatient follow-up with his primary care provider as needed for persistent symptoms. All questions were answered. Ambulatory with a steady gait, stable for discharge. <Anyi Jiang CNP - Last Filed: 02/26/22 16:03> Time: 15:59 <Anyi Jiang CNP - Last Filed: 02/26/22 16:03> Medications Administered Discontinued Medications Generic Name Dose Route Start Last Admin Trade Name Freq PRN Reason Stop Dose Admin Albuterol Sulfate 5 mg/ 7.5 mg 02/26/22 11:11 02/26/22 14:13 Albuterol Sulfate 2.5 mg INHALE 02/26/22 11:12 7.5 mg ONCE ONE Administration Albuterol Sulfate 4 puff 02/26/22 11:35 02/26/22 11:44 Albuterol Sulfate 90 Mcg 8 Gm Inhaler INHALE 02/26/22 11:36 4 puff ONCE ONE Administration Albuterol/Ipratropium 3 ml 02/26/22 11:11 02/26/22 14:13 Albuterol/Iprat 2.5/0.5mg 3 Ml Ampul.Neb INHALE 02/26/22 11:12 3 ml ONCE ONE Administration Methylprednisolone Sodium Succinate 125 mg 02/26/22 11:11 02/26/22 14:25 Methylprednisolone Sod Succ 125 Mg/2 Ml Vial IVPUSH 02/26/22 11:12 125 mg ONCE ONE Administration <SILVINO Brandon - Last Filed: 02/26/22 11:23> Medications Administered Discontinued Medications Generic Name Dose Route Start Last Admin Trade Name Freq PRN Reason Stop Dose Admin Albuterol Sulfate 5 mg/ 7.5 mg 02/26/22 11:11 02/26/22 14:13 Albuterol Sulfate 2.5 mg INHALE 02/26/22 11:12 7.5 mg ONCE ONE Administration Albuterol Sulfate 4 puff 02/26/22 11:35 02/26/22 11:44 Albuterol Sulfate 90 Mcg 8 Gm Inhaler INHALE 02/26/22 11:36 4 puff ONCE ONE Administration Albuterol/Ipratropium 3 ml 02/26/22 11:11 02/26/22 14:13 Albuterol/Iprat 2.5/0.5mg 3 Ml Ampul.Neb INHALE 02/26/22 11:12 3 ml ONCE ONE Administration Methylprednisolone Sodium Succinate 125 mg 02/26/22 11:11 02/26/22 14:25 Methylprednisolone Sod Succ 125 Mg/2 Ml Vial IVPUSH 02/26/22 11:12 125 mg ONCE ONE Administration <Anyi Jiang CNP - Last Filed: 02/26/22 16:03> Medical Decision Making Medical Decision Making [facility] Narrative: Patient is a 61-year-old male with past medical history of asthma, hepatitis-C, presents emergency department for evaluation of cough with shortness of breath. At the time of examination he is in no respiratory distress, no tachypnea, room air saturation of 94%, expiratory wheezing diffusely throughout. Will obtain testing for COVID-19/influenza, an additional obtain chest x-ray to evaluate for pneumonia, consolidation, infiltrate, pneumothorax, pulmonary congestion. Patient is without any chest pain, low suspicion for ACS however will obtain EKG and troponin. In addition will obtain CBC to evaluate for leukocytosis or anemia and BMP to evaluate for abnormal electrolytes or renal function. Patient to receive Solu-Medrol IV in addition to DuoNeb nebulizer. Disposition pending results. <Anyi Jiang CNP - Last Filed: 02/26/22 16:03> Differential Diagnosis Differential Diagnoses: The differential diagnosis associated with the presentation includes (As noted above) <Anyi Jiang CNP - Last Filed: 02/26/22 16:03> Admission/Observation Consideration of admission/observation: Escalation of care including admission/observation considered (I considered admission for asthma exacerbation, however after receiving nebulizer treatment, patient stable for discharge home.) <Anyi Jiang CNP - Last Filed: 02/26/22 16:03> Lab Data [facility] Lab Attestation statement: I reviewed the patient's lab results. <Anyi Jiang CNP - Last Filed: 02/26/22 16:03> Result Diagrams: : 02/26/22 11:24 02/26/22 11:24 <SILVINO Brandon - Last Filed: 02/26/22 11:23> Labs: Lab Results 02/26/22 02/26/22 02/26/22 Range/Units 11:24 11:24 11:24 WBC 5.3 (4.8-10.8) X10*3/uL RBC 5.00 (4.60-5.80) X10*6/uL Hgb 15.7 (14.0-18.0) g/dl Hct 46.3 (42.0-52.0) % MCV 92.6 (80.0-98.0) fL MCH 31.4 (27.0-33.0) pg MCHC 33.9 (31.0-36.0) g/dl RDW 12.9 (11.0-16.0) % Plt Count 179 D (160-400) X10*3/uL MPV 9.4 (9.4-12.4) fL Immature Gran % (Auto) 0.2 (0.0-0.4) % Neut % (Auto) 59.0 (45-73) % Lymph % (Auto) 21.8 (20-40) % Ida % (Auto) 12.0 H (2-11) % Eos % (Auto) 6.6 H (0-4) % Baso % (Auto) 0.4 (0-2) % Lymph # (Auto) 1.2 (1.2-4.9) X10*3/uL Ida # (Auto) 0.6 (0.1-1.2) X10*3/uL Eos # (Auto) 0.4 (0.0-0.4) X10*3/uL Baso # (Auto) 0.0 (0.0-0.2) X10*3/uL Abs Immat Gran (auto) 0.01 (0.00-0.03) X10*3/uL Absolute Neuts (auto) 3.1 (2.0-8.3) x10*3/uL Absolute Nucleated RBC 0.000 (0.0-0.012) X10*3/uL Nucleated RBC % (auto) 0.0 (0.0-0.2) /100WBC Sodium 137 (135-145) mmol/L Potassium 4.2 (3.3-5.1) mmol/L Chloride 102 (96-108) mmol/L Carbon Dioxide 28 (22-29) mmol/L Anion Gap 11 L (12-20) BUN 15 D (9-16) mg/dL Creatinine 1.31 (0.5-1.4) mg/dL Estim Creat Clear Calc 50.8 Estimated GFR 55 Random Glucose 197 H D (60-115) mg/dL Calcium 8.9 D (8.4-10.2) mg/dL Troponin I High Sens (<3.5-35.0) ng/L Influenza Type A (PCR) NEGATIVE (Negative) Influenza Type B (PCR) NEGATIVE (Negative) RSV RNA Qual (PCR) NEGATIVE (Negative) SARS-CoV-2 RNA (RT-PCR) NEGATIVE (Negative) 02/26/22 Range/Units 11:24 WBC (4.8-10.8) X10*3/uL RBC (4.60-5.80) X10*6/uL Hgb (14.0-18.0) g/dl Hct (42.0-52.0) % MCV (80.0-98.0) fL MCH (27.0-33.0) pg MCHC (31.0-36.0) g/dl RDW (11.0-16.0) % Plt Count (160-400) X10*3/uL MPV (9.4-12.4) fL Immature Gran % (Auto) (0.0-0.4) % Neut % (Auto) (45-73) % Lymph % (Auto) (20-40) % Ida % (Auto) (2-11) % Eos % (Auto) (0-4) % Baso % (Auto) (0-2) % Lymph # (Auto) (1.2-4.9) X10*3/uL Ida # (Auto) (0.1-1.2) X10*3/uL Eos # (Auto) (0.0-0.4) X10*3/uL Baso # (Auto) (0.0-0.2) X10*3/uL Abs Immat Gran (auto) (0.00-0.03) X10*3/uL Absolute Neuts (auto) (2.0-8.3) x10*3/uL Absolute Nucleated RBC (0.0-0.012) X10*3/uL Nucleated RBC % (auto) (0.0-0.2) /100WBC Sodium (135-145) mmol/L Potassium (3.3-5.1) mmol/L Chloride (96-108) mmol/L Carbon Dioxide (22-29) mmol/L Anion Gap (12-20) BUN (9-16) mg/dL Creatinine (0.5-1.4) mg/dL Estim Creat Clear Calc Estimated GFR Random Glucose (60-115) mg/dL Calcium (8.4-10.2) mg/dL Troponin I High Sens 5.5 (<3.5-35.0) ng/L Influenza Type A (PCR) (Negative) Influenza Type B (PCR) (Negative) RSV RNA Qual (PCR) (Negative) SARS-CoV-2 RNA (RT-PCR) (Negative) <SILVINO Brandon - Last Filed: 02/26/22 11:23> Lab Results 02/26/22 02/26/22 02/26/22 Range/Units 11:24 11:24 11:24 WBC 5.3 (4.8-10.8) X10*3/uL RBC 5.00 (4.60-5.80) X10*6/uL Hgb 15.7 (14.0-18.0) g/dl Hct 46.3 (42.0-52.0) % MCV 92.6 (80.0-98.0) fL MCH 31.4 (27.0-33.0) pg MCHC 33.9 (31.0-36.0) g/dl RDW 12.9 (11.0-16.0) % Plt Count 179 D (160-400) X10*3/uL MPV 9.4 (9.4-12.4) fL Immature Gran % (Auto) 0.2 (0.0-0.4) % Neut % (Auto) 59.0 (45-73) % Lymph % (Auto) 21.8 (20-40) % Ida % (Auto) 12.0 H (2-11) % Eos % (Auto) 6.6 H (0-4) % Baso % (Auto) 0.4 (0-2) % Lymph # (Auto) 1.2 (1.2-4.9) X10*3/uL Ida # (Auto) 0.6 (0.1-1.2) X10*3/uL Eos # (Auto) 0.4 (0.0-0.4) X10*3/uL Baso # (Auto) 0.0 (0.0-0.2) X10*3/uL Abs Immat Gran (auto) 0.01 (0.00-0.03) X10*3/uL Absolute Neuts (auto) 3.1 (2.0-8.3) x10*3/uL Absolute Nucleated RBC 0.000 (0.0-0.012) X10*3/uL Nucleated RBC % (auto) 0.0 (0.0-0.2) /100WBC Sodium 137 (135-145) mmol/L Potassium 4.2 (3.3-5.1) mmol/L Chloride 102 (96-108) mmol/L Carbon Dioxide 28 (22-29) mmol/L Anion Gap 11 L (12-20) BUN 15 D (9-16) mg/dL Creatinine 1.31 (0.5-1.4) mg/dL Estim Creat Clear Calc 50.8 Estimated GFR 55 Random Glucose 197 H D (60-115) mg/dL Calcium 8.9 D (8.4-10.2) mg/dL Troponin I High Sens (<3.5-35.0) ng/L Influenza Type A (PCR) NEGATIVE (Negative) Influenza Type B (PCR) NEGATIVE (Negative) RSV RNA Qual (PCR) NEGATIVE (Negative) SARS-CoV-2 RNA (RT-PCR) NEGATIVE (Negative) 02/26/22 Range/Units 11:24 WBC (4.8-10.8) X10*3/uL RBC (4.60-5.80) X10*6/uL Hgb (14.0-18.0) g/dl Hct (42.0-52.0) % MCV (80.0-98.0) fL MCH (27.0-33.0) pg MCHC (31.0-36.0) g/dl RDW (11.0-16.0) % Plt Count (160-400) X10*3/uL MPV (9.4-12.4) fL Immature Gran % (Auto) (0.0-0.4) % Neut % (Auto) (45-73) % Lymph % (Auto) (20-40) % Ida % (Auto) (2-11) % Eos % (Auto) (0-4) % Baso % (Auto) (0-2) % Lymph # (Auto) (1.2-4.9) X10*3/uL Ida # (Auto) (0.1-1.2) X10*3/uL Eos # (Auto) (0.0-0.4) X10*3/uL Baso # (Auto) (0.0-0.2) X10*3/uL Abs Immat Gran (auto) (0.00-0.03) X10*3/uL Absolute Neuts (auto) (2.0-8.3) x10*3/uL Absolute Nucleated RBC (0.0-0.012) X10*3/uL Nucleated RBC % (auto) (0.0-0.2) /100WBC Sodium (135-145) mmol/L Potassium (3.3-5.1) mmol/L Chloride (96-108) mmol/L Carbon Dioxide (22-29) mmol/L Anion Gap (12-20) BUN (9-16) mg/dL Creatinine (0.5-1.4) mg/dL Estim Creat Clear Calc Estimated GFR Random Glucose (60-115) mg/dL Calcium (8.4-10.2) mg/dL Troponin I High Sens 5.5 (<3.5-35.0) ng/L Influenza Type A (PCR) (Negative) Influenza Type B (PCR) (Negative) RSV RNA Qual (PCR) (Negative) SARS-CoV-2 RNA (RT-PCR) (Negative) <Anyi Jiang CNP - Last Filed: 02/26/22 16:03> Independent Interpretation I performed an independent interpretation of an: Plain X-Ray <Anyi Jiang CNP - Last Filed: 02/26/22 16:03> Interpretation: I personally interpreted chest x-ray and agree with the radiologist impression. <Anyi Jiang CNP - Last Filed: 02/26/22 16:03> Radiology Impression Discussion of test interpretation with radiology: I have reviewed the radiologist's reading. <Anyi Jiang CNP - Last Filed: 02/26/22 16:03> Radiologist Impression: XR/XR chest 1V IMPRESSION: -Chronic appearing changes similar to prior exams. -No acute intrathoracic disease. <Anyi Jiang CNP - Last Filed: 02/26/22 16:03> Prescription Management I considered prescription management with: Other (Prescription for prednisone was sent to patient's pharmacy) <Anyi Jiang CNP - Last Filed: 02/26/22 16:03> Chronic Conditions Patient?s care impacted by: Other (Asthma) <Anyi Jiang CNP - Last Filed: 02/26/22 16:03> Discharge Plan Discharge Clinical Impression: Asthma with exacerbation <SILVINO Brandon - Last Filed: 02/26/22 11:23> Patient Disposition: Home, Self-Care <SILVINO Brandon - Last Filed: 02/26/22 11:23> Additional Instructions: As discussed, your testing for COVID-19 and flu were negative today. Your chest x-ray does not show pneumonia. Your blood work was unremarkable. Use albuterol inhaler 2 puffs every 4-6 hours as needed for shortness of breath or wheezing, you were given this inhaler in the emergency department. In addition, you have been given a prescription for prednisone which was sent to your pharmacy. You may return to the emergency department with any new or worsening symptoms or concerns. Please contact your primary care provider to arrange for a follow-up visit as needed for persistent symptoms. <SILVINO Brandon - Last Filed: 02/26/22 11:23> Prescriptions: New prednisone 20 mg tablet 40 mg PO DAILY Qty: 8 0RF No Action albuterol sulfate 90 mcg/actuation HFA aerosol inhaler 2 puff inhalation Q6H PRN (Reason: shortness of breath or wheezing) Qty: 8.5 0RF (DME) Aeroneb Go Nebulizer Misc See Rx Instructions .Route Qty: 1 0RF Rx Instructions: As directed prednisone 20 mg tablet 60 mg PO DAILY 5 Days Qty: 15 0RF albuterol sulfate 90 mcg/actuation aero powdr breath act w/sensor 1 inh inhalation Q6H PRN (Reason: shortness of breath or wheezing) Qty: 1 0RF albuterol sulfate 90 mcg/actuation HFA aerosol inhaler 1 inh inhalation QID PRN (Reason: shortness of breath or wheezing) Qty: 8.5 0RF prednisone 20 mg tablet 20 mg PO BID Qty: 10 0RF dextromethorphan-guaifenesin 10-100 mg/5 mL Syrup 10 ml PO Q6H PRN (Reason: cough) Qty: 240 0RF azithromycin 500 mg Tablet 500 mg PO Q24H Qty: 4 0RF prednisone 20 mg tablet 20 mg PO DAILY Qty: 5 0RF Rx Instructions: take with food albuterol sulfate 90 mcg/actuation HFA aerosol inhaler 2 puff inhalation Q4-6H PRN (Reason: shortness of breath or wheezing) Qty: 8.5 0RF Flovent HFA 110 mcg/actuation HFA aerosol inhaler 1 puff inhalation BID Qty: 12 0RF albuterol sulfate 90 mcg/actuation HFA aerosol inhaler 2 puff inhalation Q4-6H PRN (Reason: shortness of breath or wheezing) Qty: 8.5 1RF prednisone 20 mg tablet 60 mg PO DAILY 5 Days Qty: 15 0RF prednisone 20 mg tablet 40 mg PO DAILY Qty: 10 0RF azithromycin [Zithromax Z-Roderick] 250 mg tablet See Rx Instructions .ROUTE .COMPLEX Qty: 6 0RF Rx Instructions: take 500 mg today (day 1), then 250 mg for 4 days (days 2-5) Mucinex 1,200 mg tablet extended release 12hr 1,200 mg PO Q12H Qty: 10 0RF <SILVINO Brandon - Last Filed: 02/26/22 11:23> Referrals: Physician,Unknown J [Primary Care Provider] - <SILVINO Brandon - Last Filed: 02/26/22 11:23>
[2022-02-26 11:30] LABS: MANUAL DIFF FLAG NO
[2022-02-26 11:34] LABS: Basophils Percent Auto 0.4 % (0-2); Eosinophils Absolute Auto 0.4 X10*3/uL (0.0-0.4); Eosinophils Percent Auto 6.6 % (0-4); Hematocrit 46.3 % (42.0-52.0); Hemoglobin 15.7 g/dl (14.0-18.0); Imm Gran Abs Auto 0.01 X10*3/uL (0.00-0.03); Imm Gran Pct Auto 0.2 % (0.0-0.4); Lymphocytes Absolute Auto 1.2 X10*3/uL (1.2-4.9); Lymphocytes Percent Auto 21.8 % (20-40); Mean Corpuscular HGB Conc 33.9 g/dl (31.0-36.0); Mean Corpuscular Hemoglobin 31.4 pg (27.0-33.0); Mean Corpuscular Volume 92.6 fL (80.0-98.0); Mean Platelet Volume 9.4 fL (9.4-12.4); Monocytes Absolute Auto 0.6 X10*3/uL (0.1-1.2); Neutrophils Absolute Auto 3.1 x10*3/uL (2.0-8.3); Platelet Count 179 X10*3/uL (160-400); Red Cell Distribution Width 12.9 % (11.0-16.0); White Blood Count 5.3 X10*3/uL (4.8-10.8)
[2022-02-26] MEDS: Albuterol Sulfate 90 MCG 8 GM INHALER 4 PUFF INHALE (11:44)
[2022-02-26 11:50] LABS: Anion Gap 11 (12-20); Blood Urea Nitrogen 15 mg/dL (9-16); Calcium 8.9 mg/dL (8.4-10.2); Carbon Dioxide 28 mmol/L (22-29); Chloride 102 mmol/L (96-108); Creatinine Clr Calc Pharmacy 50.8; Estimated Glomerular Filt Rate 55; Glucose Random 197 mg/dL (60-115); Potassium 4.2 mmol/L (3.3-5.1); Sodium 137 mmol/L (135-145)
[2022-02-26 11:54] VITALS: PULSE 96; RESP 20; O2SAT 95
[2022-02-26 11:57] LABS: Troponin-I High Sensitivity 5.5 ng/L (<3.5-35.0)
[2022-02-26 12:08] LABS: Influenza A PCR NEGATIVE (Negative); Influenza B PCR NEGATIVE (Negative); Resp Syncy Virus RNA Qual PCR NEGATIVE (Negative); SARS COV2 PCR INHOUSE NEGATIVE (Negative)
[2022-02-26 14:12] VITALS: BP 134/82; PULSE 66; RESP 12; TEMP 37.1; O2SAT 97
[2022-02-26 14:13] VITALS: PULSE 71; RESP 18; O2SAT 98
[2022-02-26] MEDS: Albuterol Sulfate 5 MG, Albuterol Sulfate (0.083%) 2.5 MG 7.5 MG INHALE (14:13)
[2022-02-26] MEDS: Albuterol/Iprat 2.5/0.5MG 3 ML AMPUL.NEB INHALE (14:13)
[2022-02-26] MEDS: methylPREDNISolone Sod Succ 125 MG/2 ML VIAL IVPUSH (14:25)
--- NOTE | 2022-02-26 14:28 | PC.NURSE ---
patient a&ox3, updraft being given by RT at this time, iv inserted, pt medicated per order, vss, will continue to monitor.
[2022-02-26 16:08] VITALS: BP 151/99; PULSE 80; RESP 18; TEMP 36.8; O2SAT 99
--- NOTE | 2022-02-26 16:10 | PC.NURSE ---
patient a&ox3, vss, pt lungs still wheezing but pt states she feels much better, pt to discharge home
== END 2022-02-26 16:11 | disposition home or self-care (01) ==
PROVIDERS: Physician Assistant; Emergency Provider Emergency Medicine
DX: J45.901 Unspecified asthma with (acute) exacerbation (principal); Z20.828 Contact with and (suspected) exposure to other viral communicable diseases; F12.90 Cannabis use, unspecified, uncomplicated; Z79.899 Other long term (current) drug therapy
CPT/HCPCS: 0241U; 36415; 71045; 80048; 84484; 85025; 93005; 94640; 96374; 99285; J2930

== ENCOUNTER 2022-03-13 09:03 | Emergency (ER) | payer MEDICAID, SELFPAY ==
--- NOTE | ~2022-03-13 | XR_ITS ---
EXAMINATION: XR CHEST CLINICAL INFORMATION: Shortness of breath COMPARISON: Multiple prior chest radiographs the most recent of which was 02/26/2022 TECHNIQUE: 2 views of the chest were obtained. FINDINGS: Compared to the prior exam there is been no interval change once again noted is hyperinflation consistent with COPD and coarse reticulonodular changes at the upper lobes, right greater than left. No acute infiltrates or pleural effusions are seen. XR/XR chest 2V IMPRESSION: COPD. No acute intrathoracic disease.
[2022-03-13 09:20] VITALS: BP 155/77; PULSE 90; RESP 19; TEMP 36.6; O2SAT 93; BMI 24.1
--- NOTE | 2022-03-13 10:28 | ED.SOB ---
HPI - SOB/Dyspnea General Chief Complaint: Upper Respiratory Symptoms Stated Complaint: Difficulty breathing Time Seen by Provider: 03/13/22 10:26 Source: patient Mode of arrival: ambulatory Limitations: no limitations History of Present Illness HPI Narrative: 61 yo male with history of asthma, hepatitis C, hx ETOH abuse and withdrawal in the past who presents to the ER for evaluation f 1 week of SOB, wheezing and cough. He states he ran out of his inhaler recently. He does not have a primary care doctor. No fever or chills. No known sick contacts. He states he has been bringing up some clear phlegm. He denies any chest pain or difficulty breathing. MD elicited complaint: shortness of breath and cough Pertinent past history: asthma Onset (ago): week(s) (1) Context: recent illness Timing: progressively worsening Severity: moderate Exacerbating factors: exertion Relieving factors: bronchodilators Known history of: asthma Associated symptoms: cough, wheezing and sputum production Treatment prior to arrival: bronchodilator Related Data Home oxygen amount: none Previous Rx's Medication Instructions Recorded albuterol sulfate 90 mcg/actuation 2 puff inhalation Q6H PRN 01/09/21 aerosol inhaler shortness of breath or wheezing #8.5 grams nebulizers (Aeroneb Go Nebulizer) #1 ea 01/09/21 albuterol sulfate 90 mcg/actuation 2 puff inhalation Q4-6H PRN 02/18/21 aerosol inhaler shortness of breath or wheezing #8.5 grams azithromycin 500 mg tablet 500 mg PO Q24H #4 tabs 02/18/21 dextromethorphan-guaifenesin 10 10 ml PO Q6H PRN cough #240 mL 02/18/21 mg-100 mg/5 mL oral syrup prednisone 20 mg tablet 20 mg PO DAILY #5 tabs 02/18/21 albuterol sulfate 90 mcg/actuation 1 inh inhalation Q6H PRN shortness 02/28/21 breath activated powder of breath or wheezing #1 ea inhaler,sensor prednisone 20 mg tablet 60 mg PO DAILY Asthma 5 days #15 02/28/21 tabs albuterol sulfate 90 mcg/actuation 2 puff inhalation Q4-6H PRN 03/31/21 aerosol inhaler shortness of breath or wheezing #8.5 grams fluticasone propionate 110 1 puff inhalation BID #12 grams 03/31/21 mcg/actuation HFA aerosol inhaler (Flovent HFA) prednisone 20 mg tablet 60 mg PO DAILY 5 days #15 tabs 03/31/21 albuterol sulfate 90 mcg/actuation 1 inh inhalation QID PRN shortness 01/30/22 aerosol inhaler of breath or wheezing #8.5 grams prednisone 20 mg tablet 20 mg PO BID #10 tabs 01/30/22 azithromycin 250 mg tablet See Rx Instructions PO .COMPLEX #6 02/07/22 (Zithromax Z-Roderick) tabs guaifenesin 1,200 mg tablet, 1,200 mg PO Q12H #10 tabs 02/07/22 extended release 12 hr (Mucinex) prednisone 20 mg tablet 40 mg PO DAILY #10 tabs 02/07/22 prednisone 20 mg tablet 40 mg PO DAILY #8 tabs 02/26/22 albuterol sulfate 90 mcg/actuation 2 puff inhalation Q4-6H PRN 03/13/22 aerosol inhaler shortness of breath or wheezing #8.5 grams prednisone 20 mg tablet 40 mg PO DAILY #10 tabs 03/13/22 Allergies Allergy/AdvReac Type Severity Reaction Status Date / Time crab Allergy Severe SWELLING/RA Verified 01/30/22 03:21 Review of Systems Review of Systems: Yes all other systems are reviewed and are negative [facility] Past Medical History Medical History Alcohol abuse Asthma Asthma HCV (hepatitis C virus) Surgical History No pertinent past surgical history Social History Social History Household Members: None Housing: Apartment Do you presently have visiting nurse or other home services: No Alcohol intake: current Alcohol intake frequency: 3 or more drinks per day Alcohol type: hard liquor Patient Tobacco Use Status: Never used Tobacco Smoked in Last 30 Days: Yes Use of substances other than those prescribed or required for medical reasons: No Substance Use Type: Marijuana Advance Directives: Yes Advance Directives on File: Yes Advance Directives Date on File: 01/24/20 service: No Current occupational status: unemployed Physical Exam Vital Signs: Vital Signs: Last Vital Signs Temp 97.6 F 03/13/22 11:25 Pulse 109 H 03/13/22 11:25 Resp 18 03/13/22 10:57 BP 149/73 H 03/13/22 11:25 Pulse Ox 96 03/13/22 11:25 O2 Del Method 03/13/22 11:25 BMI result Body Mass Index 24.1 Appearance: Alert. Oriented X3. Appears older than stated age. No acute distress. Eyes: Pupils equal, round and reactive to light. ENT: Pharynx normal. Neck: Normal inspection. Neck supple. CVS: Normal heart rate and rhythm. Pulses normal. Respiratory: No respiratory distress. Expiratory wheezes throughout, speaks in complete sentences. Abdomen: Soft and nontender. +BS x4 Skin: Skin warm and dry. Normal skin color. Normal skin turgor. No rashes. Extremities: No lower extremity edema. Neuro: Oriented X 3. Nonfocal, steady gait Course Course Course Narrative: 61-year-old male with history of asthma, ETOH use and withdrawal in the past, HCV presents to the ER for evaluation of asthma exacerbation. He recently ran out of inhaler. He saturating 93% on room air, , afebrile. He has diffuse wheezes throughout but is PE the sentences not in respiratory distress. Will give us a view to roll breathing treatment and reassess. Will check chest x-ray viral swabs. Reevaluation(s) Reevaluation #1: Aeration improved after 5 mg of albuterol as well as oral prednisone. Slightly tachycardic after the nebulizer. SpO2 96%. Chest x-ray is clear, showing some evidence of COPD with hyperinflation. No focal infiltrate. Viral swabs are negative. Will treat for asthma/COPD exacerbation with steroids, albuterol. Encouraged mucolytic and [id number] cold and flu medicine for his other symptoms. Stable for discharge home. Encouraged to get PCP Medications Administered Discontinued Medications Generic Name Dose Route Start Last Admin Trade Name Freq PRN Reason Stop Dose Admin Albuterol Sulfate 5 mg 03/13/22 10:29 03/13/22 10:55 Albuterol Sulfate (0.083%) 2.5 Mg/3 Ml Vial.Neb INHALE 03/13/22 10:30 5 mg ONCE ONE Administration Prednisone 40 mg 03/13/22 10:29 03/13/22 11:18 Prednisone 20 Mg Tablet PO 03/13/22 10:30 40 mg ONCE ONE Administration Medical Decision Making Differential Diagnosis Differential Diagnoses: The differential diagnosis associated with the presentation includes asthma exacerbation, COPD exacerbation, PNA, bronchitis, COVID, Flu, RSV, less likely CHF exacerbation Lab Data MDM Lab Attestation statement: I reviewed the patient's lab results. swabs negative Labs: Lab Results 03/13/22 Range/Units 09:36 Influenza Type A (PCR) NEGATIVE (Negative) Influenza Type B (PCR) NEGATIVE (Negative) RSV RNA Qual (PCR) NEGATIVE (Negative) SARS-CoV-2 RNA (RT-PCR) NEGATIVE (Negative) Independent Interpretation I performed an independent interpretation of an: Plain X-Ray Interpretation: hyperinflated lungs, no infilatrate. Radiology Impression Discussion of test interpretation with radiology: I have reviewed the radiologist's reading. Radiologist Impression: FINDINGS: Compared to the prior exam there is been no interval change once again noted is hyperinflation consistent with COPD and coarse reticulonodular changes at the upper lobes, right greater than left. No acute infiltrates or pleural effusions are seen. XR/XR chest 2V IMPRESSION: COPD. No acute intrathoracic disease. External Record Review External record reviewed: Outpatient record and Prior outpatient labs Prescription Management I considered prescription management with: Antibiotic no pneumonia Critical Care Time Critical Care Time Critical Care Time: No Discharge Plan Discharge Clinical Impression: Viral infection, Asthma exacerbation Patient Disposition: Home, Self-Care Instructions: Asthma (ED), Viral Syndrome (ED) Additional Instructions: You tested negative for influenza, COVID-19 and RSV today. Your chest x-ray did not show any evidence of pneumonia. Take the prescribed steroids as directed. Start taking them tomorrow. Your given 1st dose today in the ER. Use the prescribed inhaler as needed for shortness of breath and wheezing. Recommend following up with the primary care doctor for ongoing management of your lung disease. Also recommend following up with a office administration instructor for further evaluation. Call the office to arrange an appointment. If you develop new or worsening symptoms call 911 or come back to the ER for further evaluation. Prescriptions: New albuterol sulfate 90 mcg/actuation HFA aerosol inhaler 2 puff inhalation Q4-6H PRN (Reason: shortness of breath or wheezing) Qty: 8.5 0RF prednisone 20 mg tablet 40 mg PO DAILY Qty: 10 0RF No Action albuterol sulfate 90 mcg/actuation HFA aerosol inhaler 2 puff inhalation Q6H PRN (Reason: shortness of breath or wheezing) Qty: 8.5 0RF (DME) Aeroneb Go Nebulizer [facility] [place] See Rx Instructions .Route Qty: 1 0RF Rx Instructions: As directed prednisone 20 mg tablet 60 mg PO DAILY 5 Days Qty: 15 0RF albuterol sulfate 90 mcg/actuation aero powdr breath act w/sensor 1 inh inhalation Q6H PRN (Reason: shortness of breath or wheezing) Qty: 1 0RF albuterol sulfate 90 mcg/actuation HFA aerosol inhaler 1 inh inhalation QID PRN (Reason: shortness of breath or wheezing) Qty: 8.5 0RF prednisone 20 mg tablet 20 mg PO BID Qty: 10 0RF dextromethorphan-guaifenesin 10-100 mg/5 mL Syrup 10 ml PO Q6H PRN (Reason: cough) Qty: 240 0RF azithromycin 500 mg Tablet 500 mg PO Q24H Qty: 4 0RF prednisone 20 mg tablet 20 mg PO DAILY Qty: 5 0RF Rx Instructions: take with food albuterol sulfate 90 mcg/actuation HFA aerosol inhaler 2 puff inhalation Q4-6H PRN (Reason: shortness of breath or wheezing) Qty: 8.5 0RF Flovent HFA 110 mcg/actuation HFA aerosol inhaler 1 puff inhalation BID Qty: 12 0RF albuterol sulfate 90 mcg/actuation HFA aerosol inhaler 2 puff inhalation Q4-6H PRN (Reason: shortness of breath or wheezing) Qty: 8.5 1RF prednisone 20 mg tablet 60 mg PO DAILY 5 Days Qty: 15 0RF prednisone 20 mg tablet 40 mg PO DAILY Qty: 10 0RF azithromycin [Zithromax Z-Roderick] 250 mg tablet See Rx Instructions .ROUTE .COMPLEX Qty: 6 0RF Rx Instructions: take 500 mg today (day 1), then 250 mg for 4 days (days 2-5) Mucinex 1,200 mg tablet extended release 12hr 1,200 mg PO Q12H Qty: 10 0RF prednisone 20 mg tablet 40 mg PO DAILY Qty: 8 0RF Referrals: [facility] [Provider Group] [facility] [Provider Group] Interventions: ED Discharge Assessment Last Done: 03/13/22 11:59 Discharge Date/Time: 03/13/22 12:06 Print Language: Macedonian
[2022-03-13 10:31] LABS: Influenza A PCR NEGATIVE (Negative); Influenza B PCR NEGATIVE (Negative); Resp Syncy Virus RNA Qual PCR NEGATIVE (Negative); SARS COV2 PCR INHOUSE NEGATIVE (Negative)
[2022-03-13] MEDS: Albuterol Sulfate (0.083%) 2.5 MG/3 ML VIAL.NEB 5 MG INHALE (10:55)
[2022-03-13 10:57] VITALS: PULSE 86; RESP 18; O2SAT 94
[2022-03-13] MEDS: predniSONE 20 MG TABLET 40 MG PO (11:18)
[2022-03-13 11:25] VITALS: BP 149/73; PULSE 109; TEMP 36.4; O2SAT 96
== END 2022-03-13 12:06 | disposition home or self-care (01) ==
PROVIDERS: Emergency Provider Emergency Medicine
DX: B34.9 Viral infection, unspecified (principal); J45.901 Unspecified asthma with (acute) exacerbation; F12.90 Cannabis use, unspecified, uncomplicated; B19.20 Unspecified viral hepatitis C without hepatic coma; Z20.822 Contact with and (suspected) exposure to COVID-19; Z20.828 Contact with and (suspected) exposure to other viral communicable diseases
CPT/HCPCS: 0241U; 71046; 94640; 99284

== ENCOUNTER 2022-04-04 14:58 | Emergency (ER) | payer MEDICAID, SELFPAY ==
--- NOTE | ~2022-04-04 | XR_ITS ---
EXAMINATION: XR CHEST CLINICAL INFORMATION: Shortness of breath COMPARISON: 03/13/2022. TECHNIQUE: Portable view of the chest was obtained. 4:05 PM FINDINGS: Emphysematous changes again observed. No new airspace consolidations. Small reticular and reticulonodular opacities are again observed toward the upper lungs, not appearing significantly changed. No new hilar adenopathy. Pulmonary vascularity is stable. No new pleural effusions observed. XR/XR chest 1V IMPRESSION: Emphysematous changes. No evidence for acute process. Interstitial opacities toward the upper lungs, not appearing significantly changed.
--- NOTE | 2022-04-04 15:14 | ECG_ITS ---
Test Reason : sob Blood Pressure : / mmHG Vent. Rate : 083 BPM Atrial Rate : 083 BPM P-R Int : 158 ms QRS Dur : 090 ms QT Int : 370 ms P-R-T Axes : 080 -64 036 degrees QTc Int : 434 ms Normal sinus rhythm Right atrial enlargement Left anterior fascicular block Minimal voltage criteria for LVH, may be normal variant ( Kapil product ) Anteroseptal infarct (cited on or before 30-JAN-2022) Abnormal ECG When compared with ECG of 26-FEB-2022 11:25, Nonspecific T wave abnormality has replaced inverted T waves in Inferior leads Referred By: Generic ED Physician Electronically Signed By:ADA GRANT MD
--- NOTE | 2022-04-04 15:35 | ED.SOB ---
HPI - SOB/Dyspnea General Chief Complaint: Dyspnea <SILVINO Orozco - Last Filed: 04/04/22 15:38> Stated Complaint: diff breathing <SILVINO Orozco - Last Filed: 04/04/22 15:38> Time Seen by Provider: 04/04/22 19:59 <SILVINO Orozco - Last Filed: 04/04/22 15:38> Source: patient <Clementina Jon NP - Last Filed: 04/04/22 23:40> Mode of arrival: ambulatory <Clementina Jon NP - Last Filed: 04/04/22 23:40> Limitations: no limitations <Clementina Jon NP - Last Filed: 04/04/22 23:40> History of Present Illness HPI Narrative: 61 year old male hx of Hep c, alcohol abuse, asthma presents to the emergency department complaints of wheezing, shortness of breath times a week. +cough-nonproductive. No fever, chills, leg swelling or leg pain. <Clementina Jon NP - Last Filed: 04/04/22 23:40> Related Data Home Medications: Previous Rx's Medication Instructions Recorded albuterol sulfate 90 mcg/actuation 2 puff inhalation Q6H PRN 01/09/21 aerosol inhaler shortness of breath or wheezing #8.5 grams nebulizers (Aeroneb Go Nebulizer) #1 ea 01/09/21 albuterol sulfate 90 mcg/actuation 2 puff inhalation Q4-6H PRN 02/18/21 aerosol inhaler shortness of breath or wheezing #8.5 grams azithromycin 500 mg tablet 500 mg PO Q24H #4 tabs 02/18/21 dextromethorphan-guaifenesin 10 10 ml PO Q6H PRN cough #240 mL 02/18/21 mg-100 mg/5 mL oral syrup prednisone 20 mg tablet 20 mg PO DAILY #5 tabs 02/18/21 albuterol sulfate 90 mcg/actuation 1 inh inhalation Q6H PRN shortness 02/28/21 breath activated powder of breath or wheezing #1 ea inhaler,sensor prednisone 20 mg tablet 60 mg PO DAILY Asthma 5 days #15 02/28/21 tabs albuterol sulfate 90 mcg/actuation 2 puff inhalation Q4-6H PRN 03/31/21 aerosol inhaler shortness of breath or wheezing #8.5 grams fluticasone propionate 110 1 puff inhalation BID #12 grams 03/31/21 mcg/actuation HFA aerosol inhaler (Flovent HFA) prednisone 20 mg tablet 60 mg PO DAILY 5 days #15 tabs 03/31/21 albuterol sulfate 90 mcg/actuation 1 inh inhalation QID PRN shortness 01/30/22 aerosol inhaler of breath or wheezing #8.5 grams prednisone 20 mg tablet 20 mg PO BID #10 tabs 01/30/22 azithromycin 250 mg tablet See Rx Instructions PO .COMPLEX #6 02/07/22 (Zithromax Z-Roderick) tabs guaifenesin 1,200 mg tablet, 1,200 mg PO Q12H #10 tabs 02/07/22 extended release 12 hr (Mucinex) prednisone 20 mg tablet 40 mg PO DAILY #10 tabs 02/07/22 prednisone 20 mg tablet 40 mg PO DAILY #8 tabs 02/26/22 albuterol sulfate 90 mcg/actuation 2 puff inhalation Q4-6H PRN 03/13/22 aerosol inhaler shortness of breath or wheezing #8.5 grams prednisone 20 mg tablet 40 mg PO DAILY #10 tabs 03/13/22 doxycycline monohydrate 100 mg 100 mg PO BID #20 caps 04/04/22 capsule prednisone 20 mg tablet 60 mg PO DAILY 4 days #12 tabs 04/04/22 <SILVINO Orozco - Last Filed: 04/04/22 15:38> Allergies/Adverse Reactions: Allergies Allergy/AdvReac Type Severity Reaction Status Date / Time crab Allergy Severe SWELLING/RA Verified 01/30/22 03:21 SH <SILVINO Orozco - Last Filed: 04/04/22 15:38> Review of Systems Review of Systems: Yes all other systems are reviewed and are negative <Clementina Jon NP - Last Filed: 04/04/22 23:40> Constitutional: Constitutional: Reports no additional constitutional complaints, Denies body ache(s), Denies chills, Denies fever(s), Denies headache(s) and Denies weakness <Clementina Jon ROTARY DRYER OPERATOR - Last Filed: 04/04/22 23:40> Eyes: Eyes: Reports no additional eye complaints and Denies change in vision <Clementina Jon ROTARY DRYER OPERATOR - Last Filed: 04/04/22 23:40> ENT: Reports system reviewed and no additional complaints, except as documented, Denies dizziness, Denies headache(s), Denies nasal congestion, Denies nasal discharge and Denies neck pain <Clementina Jon ROTARY DRYER OPERATOR - Last Filed: 04/04/22 23:40> Cardiovascular: Cardiovascular: Reports no additional cardiovascular complaints, Denies chest pain, Denies leg edema and Denies dyspnea <Clementina Jon ROTARY DRYER OPERATOR - Last Filed: 04/04/22 23:40> Respiratory: Respiratory: Reports no additional respiratory complaints, Reports cough, Denies dyspnea and Reports wheezing <Clementina Jon, ROTARY DRYER OPERATOR - Last Filed: 04/04/22 23:40> Gastrointestinal: Gastrointestinal: Reports no additional gastrointestinal complaints, Denies abdominal pain, Denies diarrhea, Denies nausea and Denies vomiting <Clementina Jon, ROTARY DRYER OPERATOR - Last Filed: 04/04/22 23:40> Genitourinary: Genitourinary: Denies urinary incontinence <Clementina Jon, ROTARY DRYER OPERATOR - Last Filed: 04/04/22 23:40> Musculoskeletal: Musculoskeletal: Reports no additional musculoskeletal complaints, Denies back pain, Denies arthralgias, Denies joint swelling, Denies neck pain, Denies numbness and Denies tingling <Clementina Jon ROTARY DRYER OPERATOR - Last Filed: 04/04/22 23:40> Integumentary/Breasts: Skin/Breast: Reports system reviewed and no additional complaints, except as docu and Denies rash <Clementina Jon ROTARY DRYER OPERATOR - Last Filed: 04/04/22 23:40> Neurologic: Reports system reviewed and no additional complaints, except as documented, Denies Abnormal speech present, Denies dizziness, Denies headache(s), Denies numbness, Denies tingling and Denies weakness <Clementina Jon ROTARY DRYER OPERATOR - Last Filed: 04/04/22 23:40> Allergic/Immunologic: Allergic/Immunologic: Reports wheezing <Clementina Jon NP - Last Filed: 04/04/22 23:40> [facility] Past Medical History Attestation statement: The following information was validated with the patient. <Clementina Jon NP - Last Filed: 04/04/22 23:40> Source: old records reviewed and nursing notes reviewed <Clementina Jon NP - Last Filed: 04/04/22 23:40> Medical History: Medical History Alcohol abuse Asthma Asthma HCV (hepatitis C virus) <SILVINO Orozco - Last Filed: 04/04/22 15:38> Surgical History: Surgical History No pertinent past surgical history <SILVINO Orozco - Last Filed: 04/04/22 15:38> Social History Social History: Social History Household Members: None Housing: Apartment Do you presently have visiting nurse or other home services: No Alcohol intake: current Alcohol intake frequency: holidays/special occasions only Alcohol type: hard liquor Patient Tobacco Use Status: Never used Tobacco Smoked in Last 30 Days: No Use of substances other than those prescribed or required for medical reasons: No Substance Use Type: Marijuana Advance Directives: Yes Advance Directives on File: Yes Advance Directives Date on File: 01/24/20 service: No Current occupational status: unemployed <SILVINO Orozco - Last Filed: 04/04/22 15:38> Physical Exam Vital Signs: Vital Signs: Last Vital Signs Temp 98.5 F 04/04/22 20:03 Pulse 83 04/04/22 22:20 Resp 15 04/04/22 22:20 BP 140/80 H 04/04/22 22:20 Pulse Ox 94 04/04/22 22:20 O2 Del Method 04/04/22 22:20 BMI result Body Mass Index 23.3 <SILVINO Orozco - Last Filed: 04/04/22 15:38> Vital Signs: Last Vital Signs Temp 98.5 F 04/04/22 20:03 Pulse 83 04/04/22 22:20 Resp 15 04/04/22 22:20 BP 140/80 H 04/04/22 22:20 Pulse Ox 94 04/04/22 22:20 O2 Del Method 04/04/22 22:20 BMI result Body Mass Index 23.3 <Clementina Jon NP - Last Filed: 04/04/22 23:40> Const: General: cooperative, healthy appearing, comfortable and no acute distress <Clementina Jon ROTARY DRYER OPERATOR - Last Filed: 04/04/22 23:40> Orientation/consciousness: patient oriented x3 <Clementina Jon ROTARY DRYER OPERATOR - Last Filed: 04/04/22 23:40> Limitations: no limitations <Clementina Jon ROTARY DRYER OPERATOR - Last Filed: 04/04/22 23:40> HEENT: Head: Yes normal to inspection <Clementina Jon ROTARY DRYER OPERATOR - Last Filed: 04/04/22 23:40> Ears: hearing grossly normal bilaterally <Clementina Jon ROTARY DRYER OPERATOR - Last Filed: 04/04/22 23:40> General nose exam: Normal external nose present <Clementina Jon ROTARY DRYER OPERATOR - Last Filed: 04/04/22 23:40> Face and sinus: Yes normal facial exam <Clementina Jon ROTARY DRYER OPERATOR - Last Filed: 04/04/22 23:40> Mouth: Normal oral and palatal mucosa present <Clementina Jon ROTARY DRYER OPERATOR - Last Filed: 04/04/22 23:40> Throat: Yes posterior oropharynx normal <Clementina Jon ROTARY DRYER OPERATOR - Last Filed: 04/04/22 23:40> Eyes: General: appearance normal, both eyes and all related structures <Clementina Jon ROTARY DRYER OPERATOR - Last Filed: 04/04/22 23:40> Pupils: Equal, round and reactive pupils present <Clementina Jon ROTARY DRYER OPERATOR - Last Filed: 04/04/22 23:40> Neck: Neck: Yes normal visual inspection <Clementina Jon ROTARY DRYER OPERATOR - Last Filed: 04/04/22 23:40> Chest: Chest palpation & inspection: normal inspection of the chest <Clementina Jon ROTARY DRYER OPERATOR - Last Filed: 04/04/22 23:40> Resp: Effort & Inspection: normal respiratory effort <Clementina Jon ROTARY DRYER OPERATOR - Last Filed: 04/04/22 23:40> Auscultation: wheezes <Clementina Jon ROTARY DRYER OPERATOR - Last Filed: 04/04/22 23:40> Cardio: Rate: regular rate <Clementina Jon ROTARY DRYER OPERATOR - Last Filed: 04/04/22 23:40> Rhythm: regular rhythm <Clementina Jon, ROTARY DRYER OPERATOR - Last Filed: 04/04/22 23:40> Peripheral pulses: Peripheral pulses 2+ throughout <Clementina Jon ROTARY DRYER OPERATOR - Last Filed: 04/04/22 23:40> GI: Inspection: Yes normal to inspection <Clementina Jon ROTARY DRYER OPERATOR - Last Filed: 04/04/22 23:40> Palpation (GI): Soft to palpation and nontender <Clementina Jon ROTARY DRYER OPERATOR - Last Filed: 04/04/22 23:40> Auscultation: normal bowel sounds <Clementina Jon ROTARY DRYER OPERATOR - Last Filed: 04/04/22 23:40> Back/Spine/Pelvis: Thoracic/Lumbar Spine: thoracic and lumbar spine normal to inspection <Clementina Jon ROTARY DRYER OPERATOR - Last Filed: 04/04/22 23:40> Skin: General skin exam: no rashes or lesions noted <Clementina Jon ROTARY DRYER OPERATOR - Last Filed: 04/04/22 23:40> Neuro: General: patient oriented x3, no focal motor deficits and normal sensation to monofilament <Clementina Jon ROTARY DRYER OPERATOR - Last Filed: 04/04/22 23:40> Cranial nerves: Yes Equal, round and reactive pupils present <Clementina Jon ROTARY DRYER OPERATOR - Last Filed: 04/04/22 23:40> Cognition (Neuro): normal cognition <Clementina Jon ROTARY DRYER OPERATOR - Last Filed: 04/04/22 23:40> Speech: No Abnormal speech present <Clementina Jon ROTARY DRYER OPERATOR - Last Filed: 04/04/22 23:40> Gait exam (Neuro): Normal gait present <Clementina Jon NP - Last Filed: 04/04/22 23:40> Motor exam (neuro): 5/5 motor strength present throughout <Clementina Jon NP - Last Filed: 04/04/22 23:40> Extrem: General: Yes normal to inspection, Yes no pedal edema and Yes no calf tenderness <Clementina Jon NP - Last Filed: 04/04/22 23:40> Course Course Course Narrative: This is an RME: Additional HPI, ROS, PE not included below will be deferred to primary provider. 61 year old male hx of Hep c, alcohol abuse, asthma presents to the emergency department complaints of wheezing, shortness of breath times a week. Patient tells me this feels like his typical asthma exacerbation. Using inhalers at home with little to no relief. In triage patient is noted to have inspiratory and expiratory wheezing throughout. No labored breathing, speaking in full sentences appears to be in no acute distress. Did saturating 95% on room air. Plan at this time basic labs, influenza, COVID, chest x-ray. Will order albuterol, Solu-Medrol and magnesium as patient does have significant wheezing. <SILVINO Orozco - Last Filed: 04/04/22 15:38> Reevaluation(s) Reevaluation #1: [id number]-patient received additional 5 mg of albuterol. After this he was feeling improved. He walked with a pulse oximeter greater 95%. Overall patient feeling improved. Likely COPD exacerbation. She will be treated with course of prednisone and antibiotic. Reviewed worrisome signs and symptoms of when to return to the emergency room. Comfortable plan for discharge home. <Clementina Jon NP - Last Filed: 04/04/22 23:40> Medications Administered Discontinued Medications Generic Name Dose Route Start Last Admin Trade Name Freq PRN Reason Stop Dose Admin Albuterol Sulfate 10 mg 04/04/22 15:36 04/04/22 20:28 Albuterol Sulfate (0.083%) 2.5 Mg/3 Ml Vial.Neb INHALE 04/04/22 15:37 10 mg ONCE ONE Administration Albuterol Sulfate 5 mg 04/04/22 21:25 04/04/22 22:07 Albuterol Sulfate (0.083%) 2.5 Mg/3 Ml Vial.Neb INHALE 04/04/22 21:26 5 mg ONCE ONE Administration Albuterol Sulfate 2 puff 04/04/22 22:44 04/04/22 22:51 Albuterol Sulfate 90 Mcg 8 Gm Inhaler INHALE 04/04/22 22:45 2 puff ONCE ONE Administration Doxycycline Monohydrate 100 mg 04/04/22 22:45 04/04/22 22:51 Doxycycline Monohydrate 100 Mg Capsule PO 04/04/22 22:46 100 mg ONCE ONE Administration Magnesium Sulfate 2 gm in 50 mls @ 25 mls/hr 04/04/22 15:37 04/04/22 22:39 Magnesium Sulfate/H2o IV 04/04/22 17:36 Infused ONCE ONE Infusion Methylprednisolone Sodium Succinate 125 mg 04/04/22 15:37 04/04/22 20:11 Methylprednisolone Sod Succ 125 Mg/2 Ml Vial IVPUSH 04/04/22 15:38 125 mg ONCE ONE Administration <SILVINO Orozco - Last Filed: 04/04/22 15:38> Medications Administered Discontinued Medications Generic Name Dose Route Start Last Admin Trade Name Freq PRN Reason Stop Dose Admin Albuterol Sulfate 10 mg 04/04/22 15:36 04/04/22 20:28 Albuterol Sulfate (0.083%) 2.5 Mg/3 Ml Vial.Neb INHALE 04/04/22 15:37 10 mg ONCE ONE Administration Albuterol Sulfate 5 mg 04/04/22 21:25 04/04/22 22:07 Albuterol Sulfate (0.083%) 2.5 Mg/3 Ml Vial.Neb INHALE 04/04/22 21:26 5 mg ONCE ONE Administration Albuterol Sulfate 2 puff 04/04/22 22:44 04/04/22 22:51 Albuterol Sulfate 90 Mcg 8 Gm Inhaler INHALE 04/04/22 22:45 2 puff ONCE ONE Administration Doxycycline Monohydrate 100 mg 04/04/22 22:45 04/04/22 22:51 Doxycycline Monohydrate 100 Mg Capsule PO 04/04/22 22:46 100 mg ONCE ONE Administration Magnesium Sulfate 2 gm in 50 mls @ 25 mls/hr 04/04/22 15:37 04/04/22 22:39 Magnesium Sulfate/H2o IV 04/04/22 17:36 Infused ONCE ONE Infusion Methylprednisolone Sodium Succinate 125 mg 04/04/22 15:37 04/04/22 20:11 Methylprednisolone Sod Succ 125 Mg/2 Ml Vial IVPUSH 04/04/22 15:38 125 mg ONCE ONE Administration <Clementina Jon NP - Last Filed: 04/04/22 23:40> Medical Decision Making Medical Decision Making [facility] Narrative: 61 year old male hx of Hep c, alcohol abuse, asthma presents to the emergency department complaints of wheezing, shortness of breath times a week with nonproductive cough. No fevers, chest pain, leg swelling or leg pain. On exam stable vital signs. Inspiratory and expiratory wheezing throughout. Will obtain labs, EKG, chest x-ray, COVID screen. Will give Solu-Medrol, DuoNeb, magnesium <Clementina Jon NP - Last Filed: 04/04/22 23:40> Differential Diagnosis Differential Diagnoses: The differential diagnosis associated with the presentation includes <Clementina Jon NP - Last Filed: 04/04/22 23:40> copd exacerbation Less likely PE or ACS <Clementina Jon NP - Last Filed: 04/04/22 23:40> Lab Data [facility] Lab Attestation statement: I reviewed the patient's lab results. <Clementina Jon NP - Last Filed: 04/04/22 23:40> Result Diagrams: 04/04/22 15:54 04/04/22 15:54 <SILVINO Orozco - Last Filed: 04/04/22 15:38> Labs: Lab Results 04/04/22 04/04/22 04/04/22 Range/Units 15:54 15:54 15:54 WBC 6.9 (4.8-10.8) X10*3/uL RBC 4.98 (4.60-5.80) X10*6/uL Hgb 15.4 (14.0-18.0) g/dl Hct 45.3 (42.0-52.0) % MCV 91.0 (80.0-98.0) fL MCH 30.9 (27.0-33.0) pg MCHC 34.0 (31.0-36.0) g/dl RDW 12.9 (11.0-16.0) % Plt Count 238 D (160-400) X10*3/uL MPV 9.4 (9.4-12.4) fL Immature Gran % (Auto) 0.0 (0.0-0.4) % Neut % (Auto) 65.6 (45-73) % Lymph % (Auto) 15.9 L (20-40) % Mingo % (Auto) 11.4 H (2-11) % Eos % (Auto) 6.8 H (0-4) % Baso % (Auto) 0.3 (0-2) % Lymph # (Auto) 1.1 L (1.2-4.9) X10*3/uL Mingo # (Auto) 0.8 (0.1-1.2) X10*3/uL Eos # (Auto) 0.5 H (0.0-0.4) X10*3/uL Baso # (Auto) 0.0 (0.0-0.2) X10*3/uL Abs Immat Gran (auto) 0.00 (0.00-0.03) X10*3/uL Absolute Neuts (auto) 4.5 (2.0-8.3) x10*3/uL Absolute Nucleated RBC 0.000 (0.0-0.012) X10*3/uL Nucleated RBC % (auto) 0.0 (0.0-0.2) /100WBC Sodium 143 (135-145) mmol/L Potassium 4.3 (3.3-5.1) mmol/L Chloride 108 (96-108) mmol/L Carbon Dioxide 26 (22-29) mmol/L Anion Gap 13 (12-20) BUN 17 H (9-16) mg/dL Creatinine 1.32 (0.5-1.4) mg/dL Estim Creat Clear Calc 50.4 Estimated GFR 55 Random Glucose 99 (60-115) mg/dL Calcium 8.6 (8.4-10.2) mg/dL Magnesium 2.1 (1.6-2.6) mg/dL Total Bilirubin 0.6 (0.0-1.0) mg/dL AST 28 (5-37) U/L ALT 21 (0-40) U/L Alkaline Phosphatase 78 (39-117) U/L B-Natriuretic Peptide 42 (<100) pg/mL Total Protein 6.5 (6.5-8.0) g/dL Albumin 3.7 (3.5-5.0) g/dL COVID-19 ([facility]) (Negative) COVID-19 Clin Com Influenza Type A (MIRELLA) (Negative) Influenza Type B (MIRELLA) (Negative) Influenza A & B Note 04/04/22 04/04/22 Range/Units 15:54 15:54 WBC (4.8-10.8) X10*3/uL RBC (4.60-5.80) X10*6/uL Hgb (14.0-18.0) g/dl Hct (42.0-52.0) % MCV (80.0-98.0) fL MCH (27.0-33.0) pg MCHC (31.0-36.0) g/dl RDW (11.0-16.0) % Plt Count (160-400) X10*3/uL MPV (9.4-12.4) fL Immature Gran % (Auto) (0.0-0.4) % Neut % (Auto) (45-73) % Lymph % (Auto) (20-40) % Mingo % (Auto) (2-11) % Eos % (Auto) (0-4) % Baso % (Auto) (0-2) % Lymph # (Auto) (1.2-4.9) X10*3/uL Mingo # (Auto) (0.1-1.2) X10*3/uL Eos # (Auto) (0.0-0.4) X10*3/uL Baso # (Auto) (0.0-0.2) X10*3/uL Abs Immat Gran (auto) (0.00-0.03) X10*3/uL Absolute Neuts (auto) (2.0-8.3) x10*3/uL Absolute Nucleated RBC (0.0-0.012) X10*3/uL Nucleated RBC % (auto) (0.0-0.2) /100WBC Sodium (135-145) mmol/L Potassium (3.3-5.1) mmol/L Chloride (96-108) mmol/L Carbon Dioxide (22-29) mmol/L Anion Gap (12-20) BUN (9-16) mg/dL Creatinine (0.5-1.4) mg/dL Estim Creat Clear Calc Estimated GFR Random Glucose (60-115) mg/dL Calcium (8.4-10.2) mg/dL Magnesium (1.6-2.6) mg/dL Total Bilirubin (0.0-1.0) mg/dL AST (5-37) U/L ALT (0-40) U/L Alkaline Phosphatase (39-117) U/L B-Natriuretic Peptide (<100) pg/mL Total Protein (6.5-8.0) g/dL Albumin (3.5-5.0) g/dL COVID-19 ([facility]) Negative (Negative) COVID-19 Clin Com See Note Influenza Type A (MIRELLA) Negative (Negative) Influenza Type B (MIRELLA) Negative (Negative) Influenza A & B Note See Note <SILVINO Orozco - Last Filed: 04/04/22 15:38> Lab Results 04/04/22 04/04/22 04/04/22 Range/Units 15:54 15:54 15:54 WBC 6.9 (4.8-10.8) X10*3/uL RBC 4.98 (4.60-5.80) X10*6/uL Hgb 15.4 (14.0-18.0) g/dl Hct 45.3 (42.0-52.0) % MCV 91.0 (80.0-98.0) fL MCH 30.9 (27.0-33.0) pg MCHC 34.0 (31.0-36.0) g/dl RDW 12.9 (11.0-16.0) % Plt Count 238 D (160-400) X10*3/uL MPV 9.4 (9.4-12.4) fL Immature Gran % (Auto) 0.0 (0.0-0.4) % Neut % (Auto) 65.6 (45-73) % Lymph % (Auto) 15.9 L (20-40) % Mingo % (Auto) 11.4 H (2-11) % Eos % (Auto) 6.8 H (0-4) % Baso % (Auto) 0.3 (0-2) % Lymph # (Auto) 1.1 L (1.2-4.9) X10*3/uL Mingo # (Auto) 0.8 (0.1-1.2) X10*3/uL Eos # (Auto) 0.5 H (0.0-0.4) X10*3/uL Baso # (Auto) 0.0 (0.0-0.2) X10*3/uL Abs Immat Gran (auto) 0.00 (0.00-0.03) X10*3/uL Absolute Neuts (auto) 4.5 (2.0-8.3) x10*3/uL Absolute Nucleated RBC 0.000 (0.0-0.012) X10*3/uL Nucleated RBC % (auto) 0.0 (0.0-0.2) /100WBC Sodium 143 (135-145) mmol/L Potassium 4.3 (3.3-5.1) mmol/L Chloride 108 (96-108) mmol/L Carbon Dioxide 26 (22-29) mmol/L Anion Gap 13 (12-20) BUN 17 H (9-16) mg/dL Creatinine 1.32 (0.5-1.4) mg/dL Estim Creat Clear Calc 50.4 Estimated GFR 55 Random Glucose 99 (60-115) mg/dL Calcium 8.6 (8.4-10.2) mg/dL Magnesium 2.1 (1.6-2.6) mg/dL Total Bilirubin 0.6 (0.0-1.0) mg/dL AST 28 (5-37) U/L ALT 21 (0-40) U/L Alkaline Phosphatase 78 (39-117) U/L B-Natriuretic Peptide 42 (<100) pg/mL Total Protein 6.5 (6.5-8.0) g/dL Albumin 3.7 (3.5-5.0) g/dL COVID-19 ([facility]) (Negative) COVID-19 Clin Com Influenza Type A (MIRELLA) (Negative) Influenza Type B (MIRELLA) (Negative) Influenza A & B Note 04/04/22 04/04/22 Range/Units 15:54 15:54 WBC (4.8-10.8) X10*3/uL RBC (4.60-5.80) X10*6/uL Hgb (14.0-18.0) g/dl Hct (42.0-52.0) % MCV (80.0-98.0) fL MCH (27.0-33.0) pg MCHC (31.0-36.0) g/dl RDW (11.0-16.0) % Plt Count (160-400) X10*3/uL MPV (9.4-12.4) fL Immature Gran % (Auto) (0.0-0.4) % Neut % (Auto) (45-73) % Lymph % (Auto) (20-40) % Mingo % (Auto) (2-11) % Eos % (Auto) (0-4) % Baso % (Auto) (0-2) % Lymph # (Auto) (1.2-4.9) X10*3/uL Mingo # (Auto) (0.1-1.2) X10*3/uL Eos # (Auto) (0.0-0.4) X10*3/uL Baso # (Auto) (0.0-0.2) X10*3/uL Abs Immat Gran (auto) (0.00-0.03) X10*3/uL Absolute Neuts (auto) (2.0-8.3) x10*3/uL Absolute Nucleated RBC (0.0-0.012) X10*3/uL Nucleated RBC % (auto) (0.0-0.2) /100WBC Sodium (135-145) mmol/L Potassium (3.3-5.1) mmol/L Chloride (96-108) mmol/L Carbon Dioxide (22-29) mmol/L Anion Gap (12-20) BUN (9-16) mg/dL Creatinine (0.5-1.4) mg/dL Estim Creat Clear Calc Estimated GFR Random Glucose (60-115) mg/dL Calcium (8.4-10.2) mg/dL Magnesium (1.6-2.6) mg/dL Total Bilirubin (0.0-1.0) mg/dL AST (5-37) U/L ALT (0-40) U/L Alkaline Phosphatase (39-117) U/L B-Natriuretic Peptide (<100) pg/mL Total Protein (6.5-8.0) g/dL Albumin (3.5-5.0) g/dL COVID-19 ([facility]) Negative (Negative) COVID-19 Clin Com See Note Influenza Type A (MIRELLA) Negative (Negative) Influenza Type B (MIRELLA) Negative (Negative) Influenza A & B Note See Note <Clementina Jon NP - Last Filed: 04/04/22 23:40> Independent Interpretation I performed an independent interpretation of an: EKG and Plain X-Ray <Clementina Jon NP - Last Filed: 04/04/22 23:40> Interpretation: I independently viewed the chest x-ray agree with radiologist's report independently reviewed the EKG which shows normal sinus rhythm with a rate 83, normal KS, normal QRS, normal QT <Clementina Jon NP - Last Filed: 04/04/22 23:40> Radiology Impression Discussion of test interpretation with radiology: I have reviewed the radiologist's reading. <Clementina Jon NP - Last Filed: 04/04/22 23:40> Radiologist Impression: [place] [id number] XRay Report Signed Patient: Talha Scanlon MR#: [id number] : 1960 Acct:[id number] Age/Sex: 61 / M ADM Date: 04/04/22 Loc: .ED Attending Dr: Ordering Physician: Natalya Luo Date of Service: 04/04/22 Procedure(s): XR chest 1V Accession Number(s): [id number] cc: Natalya Luo~ EXAMINATION: XR CHEST CLINICAL INFORMATION: Shortness of breath COMPARISON: 03/13/2022. TECHNIQUE: Portable view of the chest was obtained. 4:05 PM FINDINGS: Emphysematous changes again observed. No new airspace consolidations. Small reticular and reticulonodular opacities are again observed toward the upper lungs, not appearing significantly changed. No new hilar adenopathy. Pulmonary vascularity is stable. No new pleural effusions observed. XR/XR chest 1V IMPRESSION: Emphysematous changes. No evidence for acute process. ? Interstitial opacities toward the upper lungs, not appearing significantly changed. ? <Clementina oJn NP - Last Filed: 04/04/22 23:40> Discharge Plan Discharge Clinical Impression: Acute exacerbation of chronic obstructive airways disease <SILVINO Orozco - Last Filed: 04/04/22 15:38> Patient Disposition: Home, Self-Care <SILVINO Orozco - Last Filed: 04/04/22 15:38> Instructions: COPD (Chronic Obstructive Pulmonary Disease) (ED) <SILVINO Orozco - Last Filed: 04/04/22 15:38> Additional Instructions: Start your antibiotic and steroid tomorrow Use your inhaler 2 puffs every 4 hours as needed for cough or wheezing Return for worsening symptoms <SILVINO Orozco - Last Filed: 04/04/22 15:38> Prescriptions: New prednisone 20 mg tablet 60 mg PO DAILY 4 Days Qty: 12 0RF doxycycline monohydrate 100 mg capsule 100 mg PO BID Qty: 20 0RF No Action albuterol sulfate 90 mcg/actuation HFA aerosol inhaler 2 puff inhalation Q6H PRN (Reason: shortness of breath or wheezing) Qty: 8.5 0RF (DME) Aeroneb Go Nebulizer Misc See Rx Instructions .Route Qty: 1 0RF Rx Instructions: As directed prednisone 20 mg tablet 60 mg PO DAILY 5 Days Qty: 15 0RF albuterol sulfate 90 mcg/actuation aero powdr breath act w/sensor 1 inh inhalation Q6H PRN (Reason: shortness of breath or wheezing) Qty: 1 0RF albuterol sulfate 90 mcg/actuation HFA aerosol inhaler 1 inh inhalation QID PRN (Reason: shortness of breath or wheezing) Qty: 8.5 0RF prednisone 20 mg tablet 20 mg PO BID Qty: 10 0RF albuterol sulfate 90 mcg/actuation HFA aerosol inhaler 2 puff inhalation Q4-6H PRN (Reason: shortness of breath or wheezing) Qty: 8.5 0RF prednisone 20 mg tablet 40 mg PO DAILY Qty: 10 0RF dextromethorphan-guaifenesin 10-100 mg/5 mL Syrup 10 ml PO Q6H PRN (Reason: cough) Qty: 240 0RF azithromycin 500 mg Tablet 500 mg PO Q24H Qty: 4 0RF prednisone 20 mg tablet 20 mg PO DAILY Qty: 5 0RF Rx Instructions: take with food albuterol sulfate 90 mcg/actuation HFA aerosol inhaler 2 puff inhalation Q4-6H PRN (Reason: shortness of breath or wheezing) Qty: 8.5 0RF Flovent HFA 110 mcg/actuation HFA aerosol inhaler 1 puff inhalation BID Qty: 12 0RF albuterol sulfate 90 mcg/actuation HFA aerosol inhaler 2 puff inhalation Q4-6H PRN (Reason: shortness of breath or wheezing) Qty: 8.5 1RF prednisone 20 mg tablet 60 mg PO DAILY 5 Days Qty: 15 0RF prednisone 20 mg tablet 40 mg PO DAILY Qty: 10 0RF azithromycin [Zithromax Z-Roderick] 250 mg tablet See Rx Instructions .ROUTE .COMPLEX Qty: 6 0RF Rx Instructions: take 500 mg today (day 1), then 250 mg for 4 days (days 2-5) Mucinex 1,200 mg tablet extended release 12hr 1,200 mg PO Q12H Qty: 10 0RF prednisone 20 mg tablet 40 mg PO DAILY Qty: 8 0RF <SILVINO Orozco - Last Filed: 04/04/22 15:38> Interventions: ED Discharge Assessment Last Done: 04/04/22 22:56 <SILVINO Orozco - Last Filed: 04/04/22 15:38> Discharge Date/Time: 04/04/22 22:56 <SILVINO Orozco - Last Filed: 04/04/22 15:38>
[2022-04-04 15:36] VITALS: BP 184/81; PULSE 98; RESP 18; TEMP 37.5; O2SAT 95; BMI 23.3
[2022-04-04 15:59] LABS: MANUAL DIFF FLAG NO
[2022-04-04 16:01] LABS: Basophils Percent Auto 0.3 % (0-2); Eosinophils Absolute Auto 0.5 X10*3/uL (0.0-0.4); Eosinophils Percent Auto 6.8 % (0-4); Hematocrit 45.3 % (42.0-52.0); Hemoglobin 15.4 g/dl (14.0-18.0); Lymphocytes Absolute Auto 1.1 X10*3/uL (1.2-4.9); Lymphocytes Percent Auto 15.9 % (20-40); Mean Corpuscular Hemoglobin 30.9 pg (27.0-33.0); Mean Platelet Volume 9.4 fL (9.4-12.4); Monocytes Absolute Auto 0.8 X10*3/uL (0.1-1.2); Monocytes Percent Auto 11.4 % (2-11); Neutrophils Absolute Auto 4.5 x10*3/uL (2.0-8.3); Neutrophils Percent Auto 65.6 % (45-73); Platelet Count 238 X10*3/uL (160-400); Red Blood Count 4.98 X10*6/uL (4.60-5.80); Red Cell Distribution Width 12.9 % (11.0-16.0); White Blood Count 6.9 X10*3/uL (4.8-10.8)
[2022-04-04 16:16] LABS: Alanine Aminotransferase 21 U/L (0-40); Albumin Level 3.7 g/dL (3.5-5.0); Alkaline Phosphatase 78 U/L (39-117); Anion Gap 13 (12-20); Aspartate Amino Transferase 28 U/L (5-37); Bilirubin Total 0.6 mg/dL (0.0-1.0); Blood Urea Nitrogen 17 mg/dL (9-16); Calcium 8.6 mg/dL (8.4-10.2); Carbon Dioxide 26 mmol/L (22-29); Chloride 108 mmol/L (96-108); Creatinine Clr Calc Pharmacy 50.4; Estimated Glomerular Filt Rate 55; Glucose Random 99 mg/dL (60-115); Magnesium 2.1 mg/dL (1.6-2.6); Potassium 4.3 mmol/L (3.3-5.1); Sodium 143 mmol/L (135-145); Total Protein 6.5 g/dL (6.5-8.0)
[2022-04-04 16:20] LABS: COVID-19 Test Negative (Negative); IDNOW Serial# 16C4AD1C; IDNOW Serial# BCCEAD1C; Influenza A Negative (Negative)
[2022-04-04 16:21] LABS: Influenza B2 Negative (Negative)
[2022-04-04 16:22] LABS: B Type Natriuretic Peptide 42 pg/mL (<100)
[2022-04-04 20:03] VITALS: BP 171/80; PULSE 85; RESP 18; TEMP 36.9; O2SAT 98
[2022-04-04] MEDS: methylPREDNISolone Sod Succ 125 MG/2 ML VIAL IVPUSH (20:11)
[2022-04-04] MEDS: Magnesium Sulfate/H2O 2 GM/50 ML PIGGYBACK IV (20:13)
[2022-04-04] MEDS: Albuterol Sulfate (0.083%) 2.5 MG/3 ML VIAL.NEB 10 MG INHALE (20:28)
[2022-04-04 20:31] VITALS: PULSE 73; RESP 16; O2SAT 95
[2022-04-04 22:07] VITALS: PULSE 82; RESP 16; O2SAT 92
[2022-04-04] MEDS: Albuterol Sulfate (0.083%) 2.5 MG/3 ML VIAL.NEB 5 MG INHALE (22:07)
[2022-04-04 22:20] VITALS: BP 140/80; PULSE 83; RESP 15; O2SAT 94
--- NOTE | 2022-04-04 22:41 | PC.NURSE ---
Pt ambulated with O2 monitoring. Pr O2 remained at 95% throughout the trial. Provider aware.
[2022-04-04] MEDS: Albuterol Sulfate 90 MCG 8 GM INHALER 2 PUFF INHALE (22:51)
[2022-04-04] MEDS: Doxycycline Monohydrate 100 MG CAPSULE PO (22:51)
== END 2022-04-04 22:56 | disposition home or self-care (01) ==
PROVIDERS: Physician Assistant; Emergency Provider Emergency Medicine
DX: J44.1 Chronic obstructive pulmonary disease with (acute) exacerbation (principal); R06.02 Shortness of breath; Z20.822 Contact with and (suspected) exposure to COVID-19; B19.20 Unspecified viral hepatitis C without hepatic coma; F12.90 Cannabis use, unspecified, uncomplicated; Z79.899 Other long term (current) drug therapy
CPT/HCPCS: 36415; 71045; 80053; 83735; 83880; 85025; 87502; 87635; 93005; 94640; 96365; 96366; 96375; 99285; J2930; J3475

== ENCOUNTER 2024-03-14 12:04 | Emergency (ER) | payer MEDICAID, SELFPAY ==
--- NOTE | ~2024-03-14 | XR_ITS ---
CLINICAL HISTORY: cough, fever, sob 2 view chest x-ray Comparison: CR/SR - XR CHEST 2V - 03/13/22 09:35 EST Findings: No consolidation or effusion. Hyperinflation of the lungs. Normal size heart. No acute fracture. IMPRESSION: 1. No acute findings. This document has been electronically signed by: Jairon Ogden MD on 03/14/2024 13:57:05
[2024-03-14 12:18] VITALS: BP 152/86; PULSE 102; RESP 18; TEMP 36.1; O2SAT 95; BMI 25.0
--- NOTE | 2024-03-14 12:18 | ED_ITS ---
HPI - URI/Sore Throat General Chief Complaint: Upper Respiratory Symptoms Stated Complaint: athma Time Seen by Provider: 03/14/24 16:46 Source: patient, RN notes reviewed and old records reviewed Mode of arrival: ambulatory Limitations: no limitations History of Present Illness ED Provider: Milton SIDDIQI Narrative: Patient is a 63-year-old male with history of hepatitis-C virus, asthma, alcohol abuse presenting to the emergency department with complaint of shortness of breath and productive cough for the past week. States cough is productive of clear/yellow sputum. Reports subjective fevers. Has been using inhalers at home with little relief. Denies chest pain or palpitations. States dyspnea is worse with exertion. MD elicited complaint: fever and cough Pertinent past history: asthma Onset (ago): week(s) Consistency: constant Description of mucous: clear and yellow Able to tolerate fluids by mouth: Yes Exacerbating factors: exertion Relieving factors: rest Associated symptoms: shortness of breath Treatments prior to arrival: none Related Data Previous Rx's ?Medication ?Instructions ?Recorded albuterol sulfate 90 mcg/actuation 2 puff inhalation Q6H PRN 01/09/21 aerosol inhaler shortness of breath or wheezing #8.5 grams nebulizers (Aeroneb Go Nebulizer) #1 ea 01/09/21 albuterol sulfate 90 mcg/actuation 2 puff inhalation Q4-6H PRN 02/18/21 aerosol inhaler shortness of breath or wheezing #8.5 grams azithromycin 500 mg tablet 500 mg PO Q24H #4 tabs 02/18/21 dextromethorphan-guaifenesin 10 10 ml PO Q6H PRN cough #240 mL 02/18/21 mg-100 mg/5 mL oral syrup prednisone 20 mg tablet 20 mg PO DAILY #5 tabs 02/18/21 albuterol sulfate 90 mcg/actuation 1 inh inhalation Q6H PRN shortness 02/28/21 breath activated powder of breath or wheezing #1 ea inhaler,sensor prednisone 20 mg tablet 60 mg (3 x 20 mg) PO DAILY Asthma 02/28/21 5 days #15 tabs albuterol sulfate 90 mcg/actuation 2 puff inhalation Q4-6H PRN 03/31/21 aerosol inhaler shortness of breath or wheezing #8.5 grams fluticasone propionate 110 1 puff inhalation BID #12 grams 03/31/21 mcg/actuation HFA aerosol inhaler (Flovent HFA) prednisone 20 mg tablet 60 mg (3 x 20 mg) PO DAILY 5 days 03/31/21 #15 tabs albuterol sulfate 90 mcg/actuation 1 inh inhalation QID PRN shortness 01/30/22 aerosol inhaler of breath or wheezing #8.5 grams prednisone 20 mg tablet 20 mg PO BID #10 tabs 01/30/22 azithromycin 250 mg tablet See Rx Instructions PO .COMPLEX #6 02/07/22 (Zithromax Z-Roderick) tabs guaifenesin 1,200 mg tablet, 1,200 mg PO Q12H #10 tabs 02/07/22 extended release 12 hr (Mucinex) prednisone 20 mg tablet 40 mg (2 x 20 mg) PO DAILY #10 tabs 02/07/22 prednisone 20 mg tablet 40 mg (2 x 20 mg) PO DAILY #8 tabs 02/26/22 albuterol sulfate 90 mcg/actuation 2 puff inhalation Q4-6H PRN 03/13/22 aerosol inhaler shortness of breath or wheezing #8.5 grams prednisone 20 mg tablet 40 mg (2 x 20 mg) PO DAILY #10 tabs 03/13/22 doxycycline monohydrate 100 mg 100 mg PO BID #20 caps 04/04/22 capsule prednisone 20 mg tablet 60 mg (3 x 20 mg) PO DAILY 4 days 04/04/22 #12 tabs benzonatate 100 mg capsule 100 mg PO TID PRN cough #20 caps 03/14/24 prednisone 20 mg tablet 40 mg (2 x 20 mg) PO DAILY #10 tabs 03/14/24 Allergies Allergy/AdvReac Type Severity Reaction Status Date / Time crab Allergy Severe SWELLING/RA Verified 03/14/24 12:20 Review of Systems 2 Review of Systems: As per HPI Yes all other systems are reviewed and are negative Constitutional: Constitutional: Reports as per HPI PMFSH Past Medical History Medical History Alcohol abuse Asthma Asthma HCV (hepatitis C virus) Surgical History No pertinent past surgical history Social History Social History Household Members: None Housing: Apartment Do you presently have visiting nurse or other home services: No Alcohol intake: current Alcohol intake frequency: holidays/special occasions only Alcohol type: hard liquor Patient Tobacco Use Status: Never used Tobacco Substance Use Type: Marijuana Advance Directives: Yes Advance Directives on File: Yes Advance Directives Date on File: 01/24/20 Do you have a plan to hurt others: No Plan service: No Current occupational status: unemployed Physical Exam 2 Vital Signs: Vital Signs: Last Vital Signs Temp 97 F 03/14/24 12:18 Pulse 86 03/14/24 17:14 Resp 18 03/14/24 17:14 BP 152/86 H 03/14/24 12:18 Pulse Ox 97 03/14/24 17:47 O2 Del Method Room Air 03/14/24 12:18 BMI result Body Mass Index 25.0 Vital signs have been reviewed and appear to be correct. Blood pressure elevated. Heart rate normal. Respiratory rate normal. Temperature normal. Oxygen saturation normal. Const: General: cooperative and no acute distress Nutritional Appearance: t hin Orientation/consciousness: oriented to person, oriented to place, oriented to time and patient oriented x3 Limitations: no limitations HEENT: Head: Yes normocephalic and Yes atraumatic Ears: external ears normal General nose exam: Normal external nose present Face and sinus: Yes face symmetric Mouth: oropharynx normal and moist mucous membranes Throat: Yes uvula midline Eyes: Pupils: Equal, round and reactive pupils present Neck: Neck: Yes normal visual inspection and Yes supple Resp: Effort & Inspection: normal respiratory effort and able to speak in complete sentences Auscultation: clear to auscultation bilaterally and wheezes scattered wheezes Cardio: Rate: regular rate Rhythm: regular rhythm Heart sounds: S1 normal heart sound present and S2 normal heart sound present GI: Palpation (GI): Soft to palpation and nontender Auscultation: n ormoactive bowel sounds : General: Yes no CVA tenderness Back/Spine/Pelvis: Back: no CVA tenderness Skin: General skin exam: elasticity normal and turgor normal Neuro: General: oriented to person, oriented to place, oriented to time, patient oriented x3, moves all extremities, no focal motor deficits and CN's II- XI intact bilaterally Cranial nerves: Yes Equal, round and reactive pupils present Cognition (Neuro): normal cognition Extrem: General: Yes full ROM, Yes no pedal edema and Yes no calf tenderness Psych: Mental Status: mental status grossly normal Affect: normal affect Thought process: Normal thought process present Course Course Course Narrative: This is a Rapid Medical Examination (RME) performed by Ilia Leon PA-C in triage. Full HPI, ROS, assessment and treatment plan per primary provider in the Main ED. 63 yo male w/ hx of asthma, hep C here for eval of headache, fever, shortness of breath, cough with yellow sputum production x1 week. Using home inhalers without relief. + scattered inspiratory wheezes Plan: labs, cxr, ekg, ED bronch protocol Medications Administered Discontinued Medications Generic Name Dose Route Start Last Admin Trade Name Freq PRN Reason Stop Dose Admin Albuterol Sulfate 5 mg/ 0 mg 03/14/24 17:10 03/14/24 17:12 Albuterol/Ipratropium 3 ml INHALE 03/14/24 17:11 7.5 each ONCE ONE Administration Medical Decision Making Medical Decision Making [facility] Narrative: Patient is a 63-year-old male with history of hepatitis-C virus, asthma, alcohol abuse presenting to the emergency department with complaint of shortness of breath and productive cough for the past week. On exam patient is awake, A+Ox3, VS WNL, afebrile, normal neurological exam without focal deficits, physical exam findings as above. Given reported symptoms and physical exam findings, initial differential includes but is not limited to asthma exacerbation, viral illness, COVID, flu, RSV, bronchitis, pneumonia. Labs grossly within normal limits. Viral serology positive for influenza. EKG shows sinus tachycardia. X-ray chest notable for no evidence of pneumonia. My interpretation is in agreement with the radiologist's interpretation. Patient given breathing treatment in the ED with improvement in symptoms. No significant decrease in oxygen saturation with ambulation trial. Feel patient is stable for discharge home, will prescribe short course of prednisone as well as benzonatate. Follow up with PCP. Return precautions discussed at bedside. Patient verbalized understanding of and agreement with plan. Differential Diagnosis Differential Diagnoses: The differential diagnosis associated with the presentation includes As per MDM Admission/Observation Consideration of admission/observation: Escalation of care including admission/observation considered Patient would have been admitted to the hospital had their work up had any findings where hospital admission was appropriate and their clinical presentation warranted hospital admission. Lab Data [facility] Lab Attestation statement: I reviewed the patient's lab results. As per [facility] 03/14/24 12:52 03/14/24 12:55 Labs: Lab Results 03/14/24 03/14/24 Range/Units 12:52 12:55 WBC 7.3 (4.8-10.8) X10*3/uL RBC 5.02 (4.60-5.80) X10*6/uL Hgb 15.9 (14.0-18.0) g/dl Hct 45.4 (42.0-52.0) % MCV 90.4 (80.0-98.0) fL MCH 31.7 (27.0-33.0) pg MCHC 35.0 (31.0-36.0) g/dl RDW 12.9 (11.0-16.0) % Plt Count 186 (160-400) X10*3/uL MPV 9.5 (9.4-12.4) fL Immature Gran % (Auto) 0.4 (0.0-0.4) % Neut % (Auto) 79.0 H (45-73) % Lymph % (Auto) 8.3 L (20-40) % [place] % (Auto) 12.0 H (2-11) % Eos % (Auto) 0.0 (0-4) % Baso % (Auto) 0.3 (0-2) % Lymph # (Auto) 0.6 L (1.2-4.9) X10*3/uL [place] # (Auto) 0.9 (0.1-1.2) X10*3/uL Eos # (Auto) 0.0 (0.0-0.4) X10*3/uL Baso # (Auto) 0.0 (0.0-0.2) X10*3/uL Abs Immat Gran (auto) 0.03 (0.00-0.03) X10*3/uL Absolute Neuts (auto) 5.8 (2.0-8.3) x10*3/uL Absolute Nucleated RBC 0.000 (0.0-0.012) X10*3/uL Nucleated RBC % (auto) 0.0 (0.0-0.2) /100WBC Sodium 134 L (135-145) mmol/L Potassium 4.0 (3.3-5.1) mmol/L Chloride 100 (96-108) mmol/L Carbon Dioxide 24 (22-29) mmol/L Anion Gap 14 (12-20) BUN 21 H (9-16) mg/dL Creatinine 1.20 (0.5-1.4) mg/dL Estim Creat Clear Calc 54.0 Estimated GFR > 60 Random Glucose 111 (60-115) mg/dL Calcium 8.7 (8.4-10.2) mg/dL Total Bilirubin 0.8 (0.0-1.0) mg/dL AST 64 H (5-37) U/L ALT 36 (0-40) U/L Alkaline Phosphatase 65 (39-117) U/L Total Protein 8.1 H (6.5-8.0) g/dL Albumin 4.1 (3.5-5.0) g/dL Influenza Type A (PCR) POSITIVE A (Negative) Influenza Type B (PCR) NEGATIVE (Negative) RSV RNA Qual (PCR) NEGATIVE (Negative) SARS-CoV-2 RNA (RT-PCR) NEGATIVE (Negative) Independent Interpretation I performed an independent interpretation of an: EKG (Sinus tachycardia, rate 104 beats per minute, normal MI interval and QTC) and Plain X-Ray Interpretation: Chest x-ray notable for no evidence of pneumonia. Radiology Impression Discussion of test interpretation with radiology: I have reviewed the radiologist's reading. Radiologist Impression: 2 view chest x-ray Comparison: CR/SR - XR CHEST 2V - 03/13/22 09:35 EST Findings: No consolidation or effusion. Hyperinflation of the lungs. Normal size heart. No acute fracture. IMPRESSION: 1. No acute findings. External Record Review External record reviewed: Inpatient record, Office record and Outpatient record Prescription Management I considered prescription management with: Other Discharge Plan Discharge Clinical Impression: Influenza Patient Disposition: Home, Self-Care Instructions: Influenza (DC), Flu Shot (Vaccine) for Adults (ED) Additional Instructions: You were evaluated in the emergency department today for shortness of breath and fever. Your flu test was positive. You should isolate at home and continue to wear mask while symptomatic after that. You are being treated with a short course of prednisone to decrease inflammation. Continue to use your inhalers. You are being prescribed benzonatate for cough. Your symptoms should resolve over time with rest and fluids. You can take 650 mg Tylenol or 600 mg ibuprofen every 6 hours as needed for fever or pain. Please follow-up with your primary care provider for any ongoing symptoms. Return to the emergency department if you develop worsening pain, fever not controlled with Tylenol and ibuprofen, chest pain, dizziness or lightheadedness, or any other concerning symptoms. Prescriptions: New prednisone 20 mg tablet 40 mg PO DAILY Qty: 10 0RF benzonatate 100 mg capsule 100 mg PO TID PRN (Reason: cough) Qty: 20 0RF No Action albuterol sulfate 90 mcg/actuation HFA aerosol inhaler 2 puff inhalation Q6H PRN (Reason: shortness of breath or wheezing) Qty: 8.5 0RF (DME) Aeroneb Go Nebulizer Misc See Rx Instructions .Route Qty: 1 0RF Rx Instructions: As directed prednisone 20 mg tablet 60 mg PO DAILY 5 Days Qty: 15 0RF albuterol sulfate 90 mcg/actuation aero powdr breath act w/sensor 1 inh inhalation Q6H PRN (Reason: shortness of breath or wheezing) Qty: 1 0RF albuterol sulfate 90 mcg/actuation HFA aerosol inhaler 1 inh inhalation QID PRN (Reason: shortness of breath or wheezing) Qty: 8.5 0RF prednisone 20 mg tablet 20 mg PO BID Qty: 10 0RF albuterol sulfate 90 mcg/actuation HFA aerosol inhaler 2 puff inhalation Q4-6H PRN (Reason: shortness of breath or wheezing) Qty: 8.5 0RF prednisone 20 mg tablet 40 mg PO DAILY Qty: 10 0RF prednisone 20 mg tablet 60 mg PO DAILY 4 Days Qty: 12 0RF doxycycline monohydrate 100 mg capsule 100 mg PO BID Qty: 20 0RF dextromethorphan-guaifenesin 10-100 mg/5 mL Syrup 10 ml PO Q6H PRN (Reason: cough) Qty: 240 0RF azithromycin 500 mg Tablet 500 mg PO Q24H Qty: 4 0RF prednisone 20 mg tablet 20 mg PO DAILY Qty: 5 0RF Rx Instructions: take with food albuterol sulfate 90 mcg/actuation HFA aerosol inhaler 2 puff inhalation Q4-6H PRN (Reason: shortness of breath or wheezing) Qty: 8.5 0RF Flovent HFA 110 mcg/actuation HFA aerosol inhaler 1 puff inhalation BID Qty: 12 0RF albuterol sulfate 90 mcg/actuation HFA aerosol inhaler 2 puff inhalation Q4-6H PRN (Reason: shortness of breath or wheezing) Qty: 8.5 1RF prednisone 20 mg tablet 60 mg PO DAILY 5 Days Qty: 15 0RF prednisone 20 mg tablet 40 mg PO DAILY Qty: 10 0RF azithromycin [Zithromax Z-Roderick] 250 mg tablet See Rx Instructions .ROUTE .COMPLEX Qty: 6 0RF Rx Instructions: take 500 mg today (day 1), then 250 mg for 4 days (days 2-5) Mucinex 1,200 mg tablet extended release 12hr 1,200 mg PO Q12H Qty: 10 0RF prednisone 20 mg tablet 40 mg PO DAILY Qty: 8 0RF Print Language: Citizen [place]
--- NOTE | 2024-03-14 12:20 | ECG_ITS ---
Test Reason : SOB Blood Pressure : */* mmHG Vent. Rate : 104 BPM Atrial Rate : 104 BPM P-R Int : 120 ms QRS Dur : 84 ms QT Int : 338 ms P-R-T Axes : 62 -75 30 degrees QTcB Int : 444 ms Sinus tachycardia Left anterior fascicular block Minimal voltage criteria for LVH, may be normal variant ( Sokolow-Chong ) Septal infarct (cited on or before 11-Aug-2020) Abnormal ECG When compared with ECG of 04-Apr-2022 15:47, Questionable change in initial forces of Anterior leads Referred By: Digna Leon Electronically Signed By: ADA GRANT MD
[2024-03-14 13:02] LABS: MANUAL DIFF FLAG NO
[2024-03-14 13:13] LABS: Basophils Percent Auto 0.3 % (0-2); Hematocrit 45.4 % (42.0-52.0); Hemoglobin 15.9 g/dl (14.0-18.0); Imm Gran Abs Auto 0.03 X10*3/uL (0.00-0.03); Imm Gran Pct Auto 0.4 % (0.0-0.4); Lymphocytes Absolute Auto 0.6 X10*3/uL (1.2-4.9); Lymphocytes Percent Auto 8.3 % (20-40); Mean Corpuscular Hemoglobin 31.7 pg (27.0-33.0); Mean Corpuscular Volume 90.4 fL (80.0-98.0); Mean Platelet Volume 9.5 fL (9.4-12.4); Monocytes Absolute Auto 0.9 X10*3/uL (0.1-1.2); Neutrophils Absolute Auto 5.8 x10*3/uL (2.0-8.3); Platelet Count 186 X10*3/uL (160-400); Red Blood Count 5.02 X10*6/uL (4.60-5.80); Red Cell Distribution Width 12.9 % (11.0-16.0); White Blood Count 7.3 X10*3/uL (4.8-10.8)
[2024-03-14 13:17] LABS: Alanine Aminotransferase 36 U/L (0-40); Albumin Level 4.1 g/dL (3.5-5.0); Alkaline Phosphatase 65 U/L (39-117); Anion Gap 14 (12-20); Aspartate Amino Transferase 64 U/L (5-37); Bilirubin Total 0.8 mg/dL (0.0-1.0); Blood Urea Nitrogen 21 mg/dL (9-16); Calcium 8.7 mg/dL (8.4-10.2); Carbon Dioxide 24 mmol/L (22-29); Chloride 100 mmol/L (96-108); Estimated Glomerular Filt Rate > 60; Glucose Random 111 mg/dL (60-115); Sodium 134 mmol/L (135-145); Total Protein 8.1 g/dL (6.5-8.0)
[2024-03-14 13:39] LABS: Influenza A PCR POSITIVE (Negative); Influenza B PCR NEGATIVE (Negative); Resp Syncy Virus RNA Qual PCR NEGATIVE (Negative); SARS COV2 PCR INHOUSE NEGATIVE (Negative)
[2024-03-14] MEDS: Albuterol Sulfate 5 MG, Albuterol/Iprat 2.5/0.5MG 3 ML 3 ML INHALE (17:12)
[2024-03-14 17:14] VITALS: PULSE 86; RESP 18; O2SAT 95
[2024-03-14 17:47] VITALS: O2SAT 97
--- NOTE | 2024-03-14 17:47 | PC.NURSE ---
pt maintained on 97% RA during ambulation trial.
[2024-03-14 17:59] VITALS: BP 152/92; PULSE 107; RESP 14; TEMP 37.3; O2SAT 97
[2024-03-14] MEDS: predniSONE 20 MG TABLET 60 MG PO (18:06)
[2024-03-14 18:17] VITALS: BP 152/92; PULSE 107; RESP 14; TEMP 37.3; O2SAT 97
== END 2024-03-14 18:23 | disposition home or self-care (01) ==
PROVIDERS: Physician Assistant Medical; Emergency Provider Internal Medicine
DX: J10.1 Influenza due to other identified influenza virus with other respiratory manifestations (principal); R06.02 Shortness of breath; R05.9 Cough, unspecified; R50.9 Fever, unspecified; R00.0 Tachycardia, unspecified; Z03.818 Encounter for observation for suspected exposure to other biological agents ruled out
CPT/HCPCS: 0241U; 71046; 80053; 85025; 93005; 94640; 99284

== ENCOUNTER → 2024-03-14 12:20 | Outpatient (BNV) | payer MEDICAID, SELFPAY | PROVIDERS: Emergency Provider Internal Medicine; Visit Provider Internal Medicine Cardiovascular Disease | DX: R06.02 Shortness of breath (principal); R00.0 Tachycardia, unspecified | CPT/HCPCS: 93010 ==